=== PATIENT | female | born 1955 | race Caucasian/White ===

== ENCOUNTER → 2023-07-12 09:34 | Outpatient (REF) | payer BC, SELFPAY | LOC: WDC 09:34 | PROVIDERS: ATTENDING PHYSICIAN Obstetrics & Gynecology Gynecology; FAMILY PHYSICIAN Family Medicine | DX: N64.59 Other signs and symptoms in breast (principal); Z85.3 Personal history of malignant neoplasm of breast; Z12.31 Encounter for screening mammogram for malignant neoplasm of breast | CPT/HCPCS: 76642; 77063; 77067 ==

== ENCOUNTER → 2023-07-14 08:04 | Outpatient (REF) | payer BC, SELFPAY ==
--- NOTE | 2023-07-17 09:05 | OID.BR.INTR ---
[facility] Breast Navigator - Initial
- -
Date of Contact: 07/14/23
Met with patient. Patient given written information on navigator services and support services available at [facility]. Will follow up as needed per protocol.
== END ==
LOC: WDC 08:04
PROVIDERS: ATTENDING PHYSICIAN Obstetrics & Gynecology Gynecology; FAMILY PHYSICIAN Family Medicine
DX: N64.59 Other signs and symptoms in breast (principal)
CPT/HCPCS: 88305; 19083; 88341; 88342; 88365

== ENCOUNTER → 2023-07-26 09:01 | Outpatient (REF) | payer BC, SELFPAY ==
[2023-07-26 09:43] LABS: % Basophils 0.9 % (0-2); % Eosinophils 2.2 % (0-6); % Immature Granulocytes 0.2 % (0-0.5); % Lymphocytes 48.7 % (20.5-51.1); Absolute Basophils 0.1 10^3/uL (0-0.2); Absolute Eosinophils 0.1 10^3/uL (0-0.7); Absolute Lymphocytes 2.7 10^3/uL (1.2-3.4); Absolute Monocytes 0.4 10^3/uL (0.1-0.6); Absolute Neutrophils 2.2 10^3/uL (1.4-6.5); Hematocrit 37.4 % (37.0-47.0); Hemoglobin 12.6 g/dL (12.0-16.0); Mean Corp Hgb Conc. 33.7 g/dL (33.0-37.0); Mean Corpuscular Hgb 30.2 pg (27.0-31.0); Mean Corpuscular Volume 89.7 fL (81.0-99.0); Nucleated Red Blood Cells % 0 %; Platelet Count 275 10^3/uL (130-400); Red Blood Cell Count 4.17 10^6/uL (4.20-5.40); White Blood Cell Count 5.5 10^3/uL (4.8-10.8)
[2023-07-26 10:20] LABS: ALT (SGPT) 31 U/L (0-35); AST (SGOT) 34 U/L (14-36); Albumin 4.1 g/dl (3.5-5.0); Alkaline Phosphatase 55 U/L (38-126); Blood Urea Nitrogen 18 mg/dl (7-17); Calcium 9.5 mg/dl (8.4-10.2); Carbon Dioxide 28 mmol/L (22-30); Chloride 106 mmol/L (98-107); Glucose 108 mg/dl (70-99); LDH 194 U/L (120-246); Potassium 4.2 mmol/L (3.5-5.1); Sodium 138 mmol/L (135-145); Total Bilirubin 0.8 mg/dl (0.2-1.3); Total Protein 6.7 g/dl (6.3-8.2); Uric Acid 3.7 mg/dl (2.5-6.2); eGFR > 60.00
[2023-07-27 21:46] LABS: Hepatitis B Surface Antigen Negative (Negative)
[2023-07-27 22:04] LABS: Hepatitis B Surface Antibody Negative
== END ==
LOC: REG 09:01
PROVIDERS: ATTENDING PHYSICIAN Internal Medicine Hematology & Oncology; FAMILY PHYSICIAN Family Medicine
DX: C83.34 Diffuse large B-cell lymphoma, lymph nodes of axilla and upper limb (principal); Z86.000 Personal history of in-situ neoplasm of breast; Z90.12 Acquired absence of left breast and nipple
CPT/HCPCS: 36415; 80053; 83615; 84550; 85025; 86705; 86706; 87340

== ENCOUNTER → 2023-07-27 09:13 | Outpatient (REF) | payer BC, SELFPAY ==
[2023-07-27 09:35] LABS: % Basophils 1.3 % (0-2); % Eosinophils 1.6 % (0-6); % Immature Granulocytes 0.4 % (0-0.5); % Lymphocytes 50.7 % (20.5-51.1); % Monocytes 7.2 % (1.7-9.3); % Neutrophils 38.8 % (42.2-75.2); Absolute Basophils 0.1 10^3/uL (0-0.2); Absolute Eosinophils 0.1 10^3/uL (0-0.7); Absolute Lymphocytes 2.8 10^3/uL (1.2-3.4); Absolute Monocytes 0.4 10^3/uL (0.1-0.6); Absolute Neutrophils 2.2 10^3/uL (1.4-6.5); Hematocrit 34.4 % (37.0-47.0); Hemoglobin 11.5 g/dL (12.0-16.0); Mean Corp Hgb Conc. 33.4 g/dL (33.0-37.0); Mean Corpuscular Hgb 29.7 pg (27.0-31.0); Mean Corpuscular Volume 88.9 fL (81.0-99.0); Mean Platelet Volume 8.8 fL (7.4-10.4); Nucleated Red Blood Cells % 0 %; Platelet Count 249 10^3/uL (130-400); Red Blood Cell Count 3.87 10^6/uL (4.20-5.40); White Blood Cell Count 5.6 10^3/uL (4.8-10.8)
[2023-07-27 09:40] VITALS: BP 145/81; BP_SYST 72
[2023-07-27 09:50] LABS: PT 17.3 Sec (11.4-14.6)
[2023-07-27] MEDS: ATIVAN 0.5 MG IV (11:00)
[2023-07-27] MEDS: NSS (PRESERVATIVE FREE) 0.25 ML IV (11:00)
[2023-07-27] MEDS: FLUSH (NSS) 1 FLUSH IV (11:00)
[2023-07-27 11:57] VITALS: BP 145/73
== END ==
LOC: RADI 09:13
PROVIDERS: ATTENDING PHYSICIAN Internal Medicine Hematology & Oncology; FAMILY PHYSICIAN Family Medicine
DX: C83.34 Diffuse large B-cell lymphoma, lymph nodes of axilla and upper limb (principal); Z01.818 Encounter for other preprocedural examination; Z01.812 Encounter for preprocedural laboratory examination
CPT/HCPCS: 88305; 88311; 88312; 36415; 38222; 77012; 85025; 85610; 88313; 88341; 88342

== ENCOUNTER → 2023-08-02 16:24 | Outpatient (REF) | payer BC, SELFPAY | LOC: MRI 3T 16:24 | PROVIDERS: ATTENDING PHYSICIAN Internal Medicine Hematology & Oncology; FAMILY PHYSICIAN Family Medicine | DX: C83.34 Diffuse large B-cell lymphoma, lymph nodes of axilla and upper limb (principal) | CPT/HCPCS: 77049; A9585 ==

== ENCOUNTER → 2023-08-03 11:23 | Outpatient (REF) | payer BC, SELFPAY | LOC: PET 11:23 | PROVIDERS: ATTENDING PHYSICIAN Internal Medicine Hematology & Oncology | DX: C83.34 Diffuse large B-cell lymphoma, lymph nodes of axilla and upper limb (principal) | CPT/HCPCS: 78815; A9552 ==

== ENCOUNTER → 2023-08-04 08:21 | Outpatient (REF) | payer BC, SELFPAY ==
--- NOTE | 2023-08-04 09:44 | CARDSERVLU ---
Echocardiogram with Lumason completed after protocol screening completed. Allergies verified.
Patent IV site: _Left antecubital 22 G PC____
IV site flushed with 0.9% NaCl pre and post administration.
Diluted bolus method utilized to enhance visualization of ventricular fowler.
Total volume given: __5__ mL
Patient tolerated all procedures well without complications.
Heplock D/C ed at 0920, site clear, no redness, no edema. Pressure held, no bleeding, 2x2 applied and taped. pt offers no complaints.
== END ==
LOC: RCS 08:21
PROVIDERS: ATTENDING PHYSICIAN Internal Medicine Hematology & Oncology; FAMILY PHYSICIAN Family Medicine
DX: C83.34 Diffuse large B-cell lymphoma, lymph nodes of axilla and upper limb (principal); Z86.000 Personal history of in-situ neoplasm of breast; Z90.12 Acquired absence of left breast and nipple
CPT/HCPCS: 93306; Q9950

== ENCOUNTER → 2023-08-14 12:05 | Outpatient (REF) | payer BC, SELFPAY ==
[2023-08-14 12:20] VITALS: BP 145/68; BP_SYST 71
[2023-08-14] MEDS: ANCEF 10 IV (13:13)
[2023-08-14 14:59] VITALS: BP 101/45
== END ==
LOC: RADI 12:05
PROVIDERS: ATTENDING PHYSICIAN Internal Medicine Hematology & Oncology; FAMILY PHYSICIAN Family Medicine
DX: C83.34 Diffuse large B-cell lymphoma, lymph nodes of axilla and upper limb (principal)
CPT/HCPCS: 88172; 88173; 36561; 36598; 38505; 76937; 76942; 77001; 99152; 99153; C1788

== ENCOUNTER 2023-08-22 10:44 | Outpatient (RCR) | payer BC, SELFPAY ==
[2023-08-15] VITALS (11 sets, daily range): BP systolic 86–150; BP diastolic 41–94; BMI 47.7
[2023-08-15 08:17] LABS: % Basophils 0.5 % (0-2); % Eosinophils 1.8 % (0-6); % Immature Granulocytes 0.2 % (0-0.5); % Lymphocytes 48.1 % (20.5-51.1); % Monocytes 8.2 % (1.7-9.3); % Neutrophils 41.2 % (42.2-75.2); Absolute Eosinophils 0.1 10^3/uL (0-0.7); Absolute Lymphocytes 2.7 10^3/uL (1.2-3.4); Absolute Monocytes 0.5 10^3/uL (0.1-0.6); Absolute Neutrophils 2.3 10^3/uL (1.4-6.5); Hematocrit 35.5 % (37.0-47.0); Mean Corp Hgb Conc. 33.8 g/dL (33.0-37.0); Mean Corpuscular Hgb 30.6 pg (27.0-31.0); Mean Corpuscular Volume 90.6 fL (81.0-99.0); Mean Platelet Volume 9.1 fL (7.4-10.4); Platelet Count 259 10^3/uL (130-400); Red Blood Cell Count 3.92 10^6/uL (4.20-5.40); Red Cell Dist. Width 12.8 % (11.5-14.5); White Blood Cell Count 5.6 10^3/uL (4.8-10.8)
[2023-08-15 08:37] LABS: ALT (SGPT) 26 U/L (0-35); AST (SGOT) 31 U/L (14-36); Alkaline Phosphatase 58 U/L (38-126); Blood Urea Nitrogen 23 mg/dl (7-17); Calcium 9.1 mg/dl (8.4-10.2); Carbon Dioxide 25 mmol/L (22-30); Chloride 106 mmol/L (98-107); Estimated Creatinine Clearance 74 ml/min; Glucose 105 mg/dl (70-99); Potassium 4.2 mmol/L (3.5-5.1); Sodium 136 mmol/L (135-145); Total Bilirubin 0.6 mg/dl (0.2-1.3); Total Protein 6.6 g/dl (6.3-8.2); eGFR > 60.00
[2023-08-15] MEDS: BENADRYL 50.5 MG IV (09:26)
[2023-08-15] MEDS: RUXIENCE 200 MG IV (09:57)
[2023-08-15] MEDS: TYLENOL 1000 MG PO (11:32)
[2023-08-15] MEDS: EMEND 150 MG IV (14:05)
[2023-08-15] MEDS: ALOXI 5 MG IV (14:40)
[2023-08-15] MEDS: DECADRON 51 MG IV (14:41)
[2023-08-15] MEDS: ADRIAMYCIN 26.75 MG IV ×2 (15:08)
[2023-08-15] MEDS: ONCOVIN 52 MG IV (15:23)
--- NOTE | 2023-08-15 15:23 | W.PN.UPDATE ---
Update Note
- Progress Note Update
08/15/2023 Patient seen in OID room to introduce self and role here. Patient receiving chemotherapy with [id number] for B cell lymphoma. Cycle #1 today. Patient reports feeling well at today's visit. Denies any questions. Alexason Villalta completed
education session with patient. Encouraged light exercise or physical movement daily while undergoing chemotherapy to support overall well being and possibly decrease side effects. Contact information provided. Patient to call with any questions
or concerns. Educated to call [facility] for any oncologic emergencies ie intractable nausea, pain, fever, etc. She thanked me for my time and reports feeling well prepared for today's treatment. Will continue to follow.
[2023-08-15] MEDS: CYCLOPHOSPHAMIDE 257.990000000000009 MG IV (15:41)
[2023-08-16 15:22] VITALS: BP 153/76
[2023-08-16] MEDS: NYVEPRIA 6 MG SC (15:28)
[2023-08-22 10:55] LABS: % Basophils 0.4 % (0-2); % Eosinophils 5.9 % (0-6); % Monocytes 7.1 % (1.7-9.3); % Neutrophils 1.6 % (42.2-75.2); Absolute Eosinophils 0.2 10^3/uL (0-0.7); Absolute Lymphocytes 2.2 10^3/uL (1.2-3.4); Absolute Monocytes 0.2 10^3/uL (0.1-0.6); Hematocrit 34.3 % (37.0-47.0); Hemoglobin 11.7 g/dL (12.0-16.0); Mean Corp Hgb Conc. 34.1 g/dL (33.0-37.0); Mean Corpuscular Hgb 30.3 pg (27.0-31.0); Mean Corpuscular Volume 88.9 fL (81.0-99.0); Mean Platelet Volume 9.1 fL (7.4-10.4); Platelet Count 160 10^3/uL (130-400); Red Blood Cell Count 3.86 10^6/uL (4.20-5.40); Red Cell Dist. Width 12.4 % (11.5-14.5); White Blood Cell Count 2.5 10^3/uL (4.8-10.8)
[2023-08-22 11:00] VITALS: BP 140/65
[2023-08-22 11:05] VITALS: BP 106/61
[2023-08-22 11:27] LABS: ALT (SGPT) 17 U/L (0-35); AST (SGOT) 17 U/L (14-36); Albumin 3.8 g/dl (3.5-5.0); Alkaline Phosphatase 70 U/L (38-126); Blood Urea Nitrogen 15 mg/dl (7-17); Calcium 8.9 mg/dl (8.4-10.2); Carbon Dioxide 24 mmol/L (22-30); Chloride 107 mmol/L (98-107); Estimated Creatinine Clearance 83 ml/min; Glucose 117 mg/dl (70-99); Sodium 135 mmol/L (135-145); Total Bilirubin 0.7 mg/dl (0.2-1.3); Total Protein 6.3 g/dl (6.3-8.2); eGFR > 60.00
--- NOTE | 2023-08-22 12:12 | PTCARENOTE ---
1100-Pt here today for routine labs. Pt c/o significant sinus pain and pressure. ANC=0 Pt is afebrile 98.3. Pt has been unable to sleep well because of sinus pressure. Bp sitting 140/65 HR 96 standing BP 106/61 101 . Pt has been eating and
drinking. Edna Correa REIMBURSEMENT REP notified. Pt will get IV fluids today script called in for Augmentin, pt to use Flonase and saline nasal spray for comfort. Also script for Diflucan as patient is prone to yeast infections.
[2023-08-22] MEDS: NSS 1000 IV (13:32)
[2023-08-22 13:37] VITALS: BP 129/50
[2023-08-22 15:10] VITALS: BP 129/81
[2023-08-22 15:12] VITALS: BP 123/66
== END 2023-08-23 09:40 | disposition home or self-care (01) ==
LOC: OID 10:44
PROVIDERS: ATTENDING PHYSICIAN Internal Medicine Hematology & Oncology; PRIMARYCARE PHYSICIAN Family Medicine
DX: Z51.11 Encounter for antineoplastic chemotherapy (principal); C83.34 Diffuse large B-cell lymphoma, lymph nodes of axilla and upper limb
CPT/HCPCS: 36415; 80053; 84550; 85025; 96360; 96361; 96367; 96372; 96411; 96413; 96415; 96417; J1453; J2469; J9000; J9070; Q5119; Q5122

== ENCOUNTER 2023-08-23 15:27 | Inpatient (IN) | payer BC, SELFPAY ==
[2023-08-23 12:05] VITALS: BP 107/74
--- NOTE | 2023-08-23 12:39 | ED.GENMED ---
History of Present Illness
<Natali Koch PA-C - Last Filed: 08/23/23 15:01>
General
Chief Complaint: Fever
Source: patient
Exam Limitations: none
Time Seen by Provider: 08/23/23 12:39
Nursing documentation reviewed up to this point in time: agreed with
Travel History
Have you had any contact with someone who has COVID-19?: No
Do you have any symptoms of coronavirus? Fever > 100 degrees, chills, cough, shortness of breath, sore throat, loss of taste or smell, muscle aches, or headache?: No
History of Present Illness
History of Present Illness:
68-year-old female with a past medical history of breast cancer/thyroid cancer, lymphoma, diabetes, HTN, presenting emergency department today with shaking chills x 1 day. Patient states that for the past few days, she has had facial pain,
headache, sinus congestion. She saw her primary doctor who started her on amoxicillin. She is on day 2 of amoxicillin, third dose. Patient states that today, when she woke up, she started to get shaking chills and sweats. Patient states that her
facial congestion pain has resolved. Patient [place] any coughing, shortness of breath, chest pain, abdominal pain, nausea, vomiting. Patient now has bilateral submandibular swelling, but no pain associated with this. Patient currently undergoing
chemotherapy for stage I lymphoma, she did have a chemo treatment this week. She states that she had radiation to her neck in the past for thyroid cancer, denies any radiation treatment to her face and head.
Past History
<Natali Koch PA-C - Last Filed: 08/23/23 15:01>
Past History
ED Past Medical History: Negative HTN, IDDM or NIDDM
Social History
Personal:
Living: with family
Review of Systems
<Natali Koch PA-C - Last Filed: 08/23/23 15:01>
Review of Systems
All Other Systems: ROS reviewed and negative except as documented in HPI and ROS
Phy Exam
<Natali Koch PA-C - Last Filed: 08/23/23 15:01>
Physical Exam
Physical Exam:
Vitals: Patient is tachycardic.
General: Patient appears diaphoretic, uncomfortable, but nontoxic-appearing.
Skin: Diaphoresis noted. No rashes or lesions.
Head: Normocephalic, atraumatic. Palpable submandibular swelling, no palpable lymphadenopathy.
Neck: No cervical lymphadenopathy.
Mouth: Dentition intact, no dental tenderness to palpation. No gingival fluctuance. Small scattered white patches on the buccal mucosa.
Cardiac: Patient is tachycardic, otherwise regular rhythm, no murmurs, rubs, gallop.
Respiratory: Normal respiratory effort, no wheezes, rales, rhonchi.
Abdomen: No abdominal tenderness to palpation.
Neuro: AAOx3. CN II-XII intact.
Course
<Natali Koch PA-C - Last Filed: 08/23/23 15:01>
Orders/Labs/Results
Orders:
Orders
08/23/23 12:50
0.9% Sodium Chloride 1000 ml [Nss] 1,000 ml IV BOLUS
Acetaminophen [Tylenol] 650 mg PO NOW STA
08/23/23 12:57
Complete Blood Count/With Diff Urgent
Comprehensive Metabolic Panel Urgent
Manual Differential Urgent
08/23/23 13:30
Add On- LAB Urgent
Tests Added?: lactic acid
08/23/23 13:35
Lactic Acid Routine
Blood Culture Q30M
GELY Source: Blood/Venous
Specimen Description:
08/23/23 13:43
CT Neck With Iv Contrast Urgent
Comment:
Reason For Exam: submandibular swelling, recent lymph node biopsy
Cefepime HCl [Maxipime] 2,000 mg IV NOW STA
08/23/23 13:51
Blood Culture Q30M
GELY Source: Blood/Venous
Specimen Description:
Abnormal Lab Results
08/23/23
12:57
WBC 2.0 L* 10^3/uL
(4.8-10.8)
RBC 3.69 L 10^6/uL
(4.20-5.40)
Hgb 11.0 L g/dL
(12.0-16.0)
Hct 31.9 L %
(37.0-47.0)
Plt Count 128 L 10^3/uL
(130-400)
Abs Neuts (Manual) 0.8 L* 10^3/uL
(1.4-6.5)
Segmented Neutrophils 26 L %
(42-75)
Band Neutrophils 14 H %
(0-3)
Sodium 134 L mmol/L
(135-145)
Glucose 121 H mg/dl
(70-99)
Total Protein 6.1 L g/dl
(6.3-8.2)
08/23/23 12:57
08/23/23 12:57
Vital Signs
Initial and Last Documented VS:
Initial Vital Signs
Temp Pulse Resp BP Pulse Ox
100.4 F H 138 16 107/74 94
08/23/23 12:05 08/23/23 12:05 08/23/23 12:05 08/23/23 12:05 08/23/23 12:05
Last Documented Vital Signs
Temp Pulse Resp BP Pulse Ox
100.4 F H 109 25 128/67 90
08/23/23 12:05 08/23/23 14:00 08/23/23 14:00 08/23/23 14:00 08/23/23 14:00
<Yandel Mccartney, DO - Last Filed: 08/23/23 14:20>
Orders/Labs/Results
Orders:
Orders
08/23/23 12:50
0.9% Sodium Chloride 1000 ml [Nss] 1,000 ml IV BOLUS
Acetaminophen [Tylenol] 650 mg PO NOW STA
08/23/23 12:57
Complete Blood Count/With Diff Urgent
Comprehensive Metabolic Panel Urgent
Manual Differential Urgent
08/23/23 13:30
Add On- LAB Urgent
Tests Added?: lactic acid
08/23/23 13:35
Lactic Acid Routine
Blood Culture Q30M
GELY Source: Blood/Venous
Specimen Description:
08/23/23 13:43
CT Neck With Iv Contrast Urgent
Comment:
Reason For Exam: submandibular swelling, recent lymph node biopsy
Cefepime HCl [Maxipime] 2,000 mg IV NOW STA
08/23/23 13:51
Blood Culture Q30M
GELY Source: Blood/Venous
Specimen Description:
Abnormal Lab Results
08/23/23
12:57
WBC 2.0 L* 10^3/uL
(4.8-10.8)
RBC 3.69 L 10^6/uL
(4.20-5.40)
Hgb 11.0 L g/dL
(12.0-16.0)
Hct 31.9 L %
(37.0-47.0)
Plt Count 128 L 10^3/uL
(130-400)
Abs Neuts (Manual) 0.8 L* 10^3/uL
(1.4-6.5)
Segmented Neutrophils 26 L %
(42-75)
Band Neutrophils 14 H %
(0-3)
Sodium 134 L mmol/L
(135-145)
Glucose 121 H mg/dl
(70-99)
Total Protein 6.1 L g/dl
(6.3-8.2)
08/23/23 12:57
08/23/23 12:57
Vital Signs
Initial and Last Documented VS:
Initial Vital Signs
Temp Pulse Resp BP Pulse Ox
100.4 F H 138 16 107/74 94
08/23/23 12:05 08/23/23 12:05 08/23/23 12:05 08/23/23 12:05 08/23/23 12:05
Last Documented Vital Signs
Temp Pulse Resp BP Pulse Ox
100.4 F H 109 25 128/67 90
08/23/23 12:05 08/23/23 14:00 08/23/23 14:00 08/23/23 14:00 08/23/23 14:00
<Natali Koch PA-C - Last Filed: 08/23/23 15:01>
MDM/Problems Addressed
Differential Diagnosis Includes:
ddx include sinusitis, parotidis, dental infection, bacteremia
MDM/Problems Addressed:
Fever, chills
Chronic conditions affecting care: DM, HTN and Cancer
Acute Exacerbation and/or Progression of Chronic Illness: DM, HTN and Cancer
<CASSANDRA Lopes Last Filed: 08/23/23 15:01>
*Pulse Oximetry
Patient hypoxic: no
*Critical Care Note
Total Time (30-74mins, 75-104mins- exclusive of procedures): Not Applicable
Data Reviewed
Review of Other/Old Records Reveals: Records (Reviewed physician office history and physical from 08/16/2023 from [facility]) and Discharge Summary (Discharge summaries in [facility] to review )
Source: patient and records
<CASSANDRA Lopes Last Filed: 08/23/23 15:01>
Patient Management
Escalation/DeEscalation of care consider admission/obs:
68-year-old female with a past medical history of breast cancer/thyroid cancer, lymphoma, diabetes, HTN, presenting emergency department today with shaking chills x 1 day. Patient states that for the past few days, she has had facial pain,
headache, sinus congestion. Her pain and pressure symptoms are since resolved, however now she has facial swelling and fever and chills. Currently undergoing chemo for lymphoma. Here in the emergency department, patient had a fever and was found
to be new neutropenic. Patient did have a recent lymph node biopsy, so CT of the neck was obtained to rule out an abscess as a possible source. Patient is on day 2 of amoxicillin for sinusitis. Her CT scanning of the neck did not show any fluid
collection. Patient was started on IV cefepime and referred to hospitalist for admission. Hospitalist accepted patient, patient aware and in agreement with plan.
ED Attending Note
<Natali Koch PA-C - Last Filed: 08/23/23 15:01>
-
Portions of this chart may have been created with voice recognition software.� Occasional wrong word or��sound alike� substitutions may have occurred due to the inherent limitations of voice recognition software.
<Yandel Mccartney DO - Last Filed: 08/23/23 14:20>
ED Attending Note
Patient seen and examined by attending physician: Yes
I performed the substantive portion of visit, reviewed & personally made and approve the management plan that is documented in note by myself or JUDIE.: Yes
ED Attending Note:
I have seen and evaluated the patient with a [id number] encounter. I have spoken to the advance practicer provider and involved in the medical history, the physical exam, medical decision making.
Evaluation and management service: agree unless noted differently below.
Results interpretation: agree unless noted differently below.
Focused HPI: 68-year-old female presenting with fevers and chills. She is noticing swelling around her neck. Patient is currently on antibiotics for sinusitis. Patient states she was recently diagnosed with lymphoma and just started her first
chemotherapy. She was told yesterday that she 'has no white blood cells'. Patient had a biopsy done in her neck where she is now noticing redness and swelling
Physical exam: Sitting bed comfortably. Enlarged submandibular lymphnodes with surrounding cellulitis. No evidence of [place] angina. Lungs clear
Medical Decision Making: Patient found to be neutropenic. Given the neutropenic fever with concern for lymphadenitis, will start antibiotics and admit
Discharge Plan
Departure
Patient Disposition: Admit
Date of Disposition: 08/23/23
Time of Disposition: 13:47
Admit to: Med/Surg
Presentation/result/management discussed w/ accepting MD/DO: Hospitalist
Condition: Fair
Discharge Problem:
Neutropenic fever
Prescriptions:
No Action
fluoxetine 40 mg Capsule
40 mg PO DAILY
metformin 500 mg Tablet
500 mg PO BID
pantoprazole 40 mg Tablet,Delayed Release (Dr/Ec)
40 mg PO DAILY
lisinopril 10 mg Tablet
10 mg PO DAILY
levothyroxine [Synthroid] 150 mcg Tablet
125 mcg PO DAILY
metoprolol succinate 25 mg Tablet Extended Release 24 Hr
25 mg PO DAILY
loratadine 10 mg Tablet
10 mg PO DAILY
rosuvastatin 10 mg Tablet
20 mg PO DAILY
fenofibrate 160 mg Tablet
160 mg PO DAILY
calcium carbonate-vitamin D3 [Calcium 500 + D] 500 mg-10 mcg (400 unit) Tablet
1 tab PO DAILY
ondansetron HCl [Zofran] 8 mg Tablet
8 mg PO Q8HPRN PRN (Reason: nausea)
prochlorperazine maleate [Compazine] 10 mg Tablet
10 mg PO Q6H PRN (Reason: nausea)
loperamide 2 mg Tablet
2 mg PO Q4HPRN PRN (Reason: DIARRHEA)
ibuprofen [Advil] 200 mg Tablet
400 mg PO Q6HPRN PRN (Reason: MILD PAIN)
allopurinol 300 mg Tablet
300 mg PO DAILY
Referrals:
Raúl Del Castillo DO [Family Provider] -
Interventions
Interventions:
*Risk Screen - Suicide Last Done: 08/23/23 12:05
*General Assessment Last Done: 08/23/23 12:05
*Neglect/Abuse Screening Last Done: 08/23/23 12:05
ED- Fall Risk Assessment Last Done: 08/23/23 12:42
*ED COVID-19 Vaccine History Last Done: 08/23/23 12:44
ED- Neurological Assessment Last Done: 08/23/23 12:42
ED-Skin Assessment Last Done: 08/23/23 12:42
Discharge Date and Time
Print Language: AUSTRIAN
[2023-08-23] MEDS: NSS 1000 IV (12:57)
[2023-08-23] MEDS: TYLENOL 650 MG PO ×2 (12:59→20:06)
[2023-08-23 13:07] VITALS: BP 118/75
[2023-08-23 13:16] LABS: Hematocrit 31.9 % (37.0-47.0); Mean Corp Hgb Conc. 34.5 g/dL (33.0-37.0); Mean Corpuscular Hgb 29.8 pg (27.0-31.0); Mean Corpuscular Volume 86.4 fL (81.0-99.0); Mean Platelet Volume 9.6 fL (7.4-10.4); Platelet Count 128 10^3/uL (130-400); Red Blood Cell Count 3.69 10^6/uL (4.20-5.40); Red Cell Dist. Width 12.5 % (11.5-14.5)
[2023-08-23 13:32] LABS: ALT (SGPT) 18 U/L (0-35); AST (SGOT) 23 U/L (14-36); Albumin 3.5 g/dl (3.5-5.0); Alkaline Phosphatase 69 U/L (38-126); Blood Urea Nitrogen 12 mg/dl (7-17); Calcium 9.1 mg/dl (8.4-10.2); Carbon Dioxide 23 mmol/L (22-30); Chloride 106 mmol/L (98-107); Glucose 121 mg/dl (70-99); Potassium 3.7 mmol/L (3.5-5.1); Sodium 134 mmol/L (135-145); Total Bilirubin 0.8 mg/dl (0.2-1.3); Total Protein 6.1 g/dl (6.3-8.2); eGFR > 60.00
[2023-08-23 13:48] LABS: Atypical Lymphocytes 3 %; Band Neutrophils 14 % (0-3); Eosinophils 2 % (0-6); Lymphocytes 36 % (20-51); Metamyelocytes 8 % (-); Monocytes 9 % (2-9); Myelocytes 2 % (-); Platelets Checked Yes; Segmented Neutrophils 26 % (42-75)
[2023-08-23 13:49] LABS: Normal RBC Morphology Yes; Total Cells Counted 100
[2023-08-23] MEDS: MAXIPIME 2000 MG IV ×2 (13:50→21:33)
[2023-08-23 13:52] LABS: Absolute Neutrophils -Man Diff 0.8 10^3/uL (1.4-6.5)
[2023-08-23 13:57] LABS: Lactic Acid 1.2 mmol/L (0.7-2.0)
[2023-08-23 14:00] VITALS: BP 128/67
--- NOTE | 2023-08-23 14:35 | HPS.HSE ---
Family Physician
-
Family Physician: Raúl Del Castillo, DO
Chief Complaint
-
Fever
History of Present Illness
Patient is a 68-year-old female past medical history of hypertension, hyperlipidemia, diabetes and recently diagnosed lymphoma who presents with shaking chills. Patient reports she just started treatment for lymphoma last week, with first dose of
chemotherapy on August 15. She notes the following day she did receive a dose of Neulasta. She reports she had blood work taken and received some IV fluids in the infusion room earlier this week. She complains of sinus pressure and did get started
on a course of amoxicillin, and notes her facial pain has improved. However, this morning she developed significant shaking chills, and reports a temperature of 100 �F at home. She was in contact with her oncologist who referred her to the
emergency department for evaluation.
Medical History
Past Medical History
Past Medical History: Reports Other
Additional Past Medical History:
Diabetes Mellitus, Type II
Essential Hypertension
Hyperlipidemia
Depression
Diffuse Large B-Cell Lymphoma
Thyroid CA s/p Thyroidectomy
Breast Cancer s/p Left Mastectomy
Past Surgical History: Reports Other
Additional Past Surgical History:
Thyroidectomy
Left Mastectomy
Social History
Tobacco: Non-smoker
Alcohol: Occasional (Patient reports none for the last month)
Family History
Family History: Not pertinent
Allergies / Home Medications
Allergies reflects when Allergies were last updated in [employer].
Home Medications with original date entered in [employer]
Allergy/Medication List:
Allergies
Allergy/AdvReac Type Severity Reaction Status Date / Time
NKA - No Known Allergies Allergy Unknown Uncoded 08/23/23 12:40
Home Medications
calcium carbonate 500 mg-vitamin D3 10 mcg (400 unit) tablet (Calcium 500 + D) 1 tab PO DAILY 12/06/22
fenofibrate 160 mg tablet 160 mg PO DAILY 12/06/22
fluoxetine 40 mg capsule 40 mg PO DAILY 12/06/22
levothyroxine 150 mcg tablet (Synthroid) 125 mcg PO DAILY 12/06/22
lisinopril 10 mg tablet 10 mg PO DAILY 12/06/22
loratadine 10 mg tablet 10 mg PO DAILY 12/06/22
metformin 500 mg tablet 500 mg PO BID 12/06/22
metoprolol succinate 25 mg tablet,extended release 24 hr 25 mg PO DAILY 12/06/22
pantoprazole 40 mg tablet,delayed release 40 mg PO DAILY 12/06/22
rosuvastatin 10 mg tablet 20 mg PO DAILY 12/06/22
ondansetron HCl 8 mg tablet 8 mg PO Q8HPRN PRN nausea 08/15/23
prochlorperazine maleate 10 mg tablet (Compazine) 10 mg PO Q6H PRN nausea 08/15/23
allopurinol 300 mg tablet 300 mg PO DAILY 08/23/23
ibuprofen 200 mg tablet (Advil) 400 mg PO Q6HPRN PRN MILD PAIN 08/23/23
loperamide 2 mg tablet 2 mg PO Q4HPRN PRN DIARRHEA 08/23/23
Review of Systems
-
A 12 point ROS was completed and negative except as noted: Yes
Constitutional: Reports Chills
Respiratory: Denies Cough or Trouble Breathing
Cardiac: Denies Chest Pain or Palpitations
Abdomen/GI: Denies Abdominal Pain, Nausea, Vomiting, Diarrhea or Constipated
: Denies Dysuria, Frequency or Flank Pain
Skin: Denies Rash
Physical Exam
Vital Signs
Vital Signs
Temp Pulse Resp BP Pulse Ox
100.4 F H 109 25 128/67 90
08/23/23 12:05 08/23/23 14:00 08/23/23 14:00 08/23/23 14:00 08/23/23 14:00
Physical Exam
General: Comfortable and Conversant
HEENT: Anicteric, Moist mucous membranes and Thrush
Respiratory: Clear and Non Labored Respirations
Cardiac: S1/S2 and Regular Rhythm; No Tachycardia or Murmur
GI: Soft and Non Tender
Rectal: Deferred by Provider
Musculoskeletal: No Clubbing, No Cyanosis and No Edema
Skin: Warm and Dry; No Rash
Neuro: Awake, Alert, Oriented and Nonfocal/grossly intact
Psych: Calm
Laboratory Results
-
08/23/23 12:57
08/23/23 12:57
Laboratory Results
Lactic Acid 1.2 mmol/L (0.7-2.0) 08/23/23 13:35
Total Bilirubin 0.8 mg/dl (0.2-1.3) 08/23/23 12:57
AST 23 U/L (14-36) 08/23/23 12:57
ALT 18 U/L (0-35) 08/23/23 12:57
Alkaline Phosphatase 69 U/L (38-126) 08/23/23 12:57
Data Reviewed
-
Lab Data: Labs Reviewed by me
Old Records: Reviewed
Impression/Plan
-
Sepsis secondary to likely Neutropenic Fever
-Consult Oncology and Infectious Disease
-Continue cefepime
-Await blood cultures
-Check urinalysis, COVID and influenza
Thrush
-Start Nystatin
Diabetes Mellitus, Type II
-Continue Metformin
-Monitor sugars and continue coverage insulin
Essential Hypertension
-Continue Lisinopril and Metoprolol
Hyperlipidemia
-Continue fenofibrate and rosuvastatin
Depression
-Continue fluoxetine
Diffuse Large B-Cell Lymphoma
-Last Chemotherapy August 15
Hx Thyroid CA s/p Thyroidectomy
-Continue Synthroid
Hx Breast Cancer s/p Left Mastectomy
DVT proph: Lovenox
Code Status: Full Code
[2023-08-23 16:08] LABS: COVID-19 Antigen Negative (Negative)
[2023-08-23 16:11] VITALS: BMI 47.4
[2023-08-23 16:21] LABS: Glucose - Point of Care 111 mg/dl (70-99)
--- NOTE | 2023-08-23 17:03 | W.PN.UPDATE ---
Update Note
Progress Note Update
This serves as an addendum to the history and physical done by Edwige Adam on August 23, 2023.
Pt seen and examined independently--agree with plan as set forth
GENERAL: well developed, well nourished, female in no apparent distress
HEENT:NC/AT-red, swollen area on right jaw and upper neck--no need for O2--thrush and small oral ulcer on inner right cheek by upper molar
HEART: regular rate and rhythm, +S1, +S2
LUNGS : clear to auscultation bilaterally
ABDOM: soft, nontender, nondistended, + bowel sounds
EXT: no cyanosis, clubbing, or edema
NEUROLOGIC: grossly intact
Sepsis secondary to likely Neutropenic Fever--doubt true infection BUT will barraza culture--consult ID and heme/onc--cont cefepime and add vanco--CT neck without abscess--check panorex--Covid neg--check UA
Thrush--Start Nystatin
Diabetes Mellitus, Type II--Continue Metformin--Monitor sugars and continue coverage insulin
Essential Hypertension--Continue Lisinopril and Metoprolol
Hyperlipidemia--Continue fenofibrate and rosuvastatin
Depression--Continue fluoxetine
Diffuse Large B-Cell Lymphoma with pancytopenia--Last Chemotherapy August 15 (first round, also got neulasta day after)
Hx Thyroid CA s/p Thyroidectomy--Continue Synthroid
Hx Breast Cancer s/p Left Mastectomy
DVT proph: Lovenox
Code Status: Full Code
--- NOTE | 2023-08-23 18:01 | PHA.VAN.IN ---
Assessment
- Assessment
Renal Function: Appears similar to baseline
Maximum Temperature: 100.4 F oral 08/23/23 @ 1205
Concomitant Antimicrobials: cefepime
Plan
- Plan
Initial / Loading Dose: vanc 2000mg pending administration
Maintenance Regimen: dosing by level
Monitoring: random level 08/23 0600
Pharmacokinetics Vancomycin I
- -
Patient Age: 68
Patient Sex: Female
Vancomycin Day #: 1
Indication: Neutropenic Fever
Requesting Provider: Dr. Moore
Pertinent Antimicrobial Allergies:
no pertinent antimicrobial allergies
Height / Weight:
Height 5 ft 2 in
Actual Weight 117.344 kg
Pertinent Past Medical History: BMI ~47, diffuse large B-cell lymphoma
- Vital Signs / Lab Results
Temp Pulse Resp BP Pulse Ox
98.7 F 105 26 128/67 94
08/23/23 13:35 08/23/23 14:15 08/23/23 14:15 08/23/23 14:00 08/23/23 16:15
Lab Results - Hematology
08/23/23
12:57
WBC 2.0 L*
Band Neutrophils 14 H
Lab Results - Chemistry
08/23/23
12:57
BUN 12
Creatinine 0.7
Albumin 3.5
08/23/23
13:35
Lactic Acid 1.2
Microbiology Results
08/23/23 15:19 Influenza Types A & B (DL) - Final
Nasal Swab Negative for Influenza A & B, NAAT
Negative results must be combined with clinical observations
and patient history.
Nucleic Acid Amplification test (NAAT)performed on the
[employer] platform.
[2023-08-23] MEDS: LOVENOX 40 MG SC (18:17)
[2023-08-23] MEDS: MYCOSTATIN ORAL SUSPENSION 5 ML PO ×2 (18:17→21:33)
[2023-08-23] MEDS: VANCOCIN 540 MG IV (18:17)
[2023-08-23] MEDS: GLUCOPHAGE 500 MG PO (20:07)
[2023-08-23 20:57] LABS: Urine Albumin Trace (Neg - Trace); Urine Bilirubin Negative (Negative); Urine Character Clear (Clear); Urine Color Yellow; Urine Glucose Negative (Negative); Urine Ketone Trace (Negative); Urine Leukocyte Negative (Negative); Urine Nitrite Negative (Negative); Urine Occult Blood Negative (Negative); Urine Urobilinogen Negative (Neg - 1+)
[2023-08-23 21:12] LABS: Glucose - Point of Care 111 mg/dl (70-99)
[2023-08-23] MEDS: STERILE WATER FOR INJECTION 10 ML IV (21:33)
[2023-08-23] MEDS: ROXICODONE 5 MG PO (22:08)
[2023-08-23] MEDS: COMPAZINE 5 MG IV (22:15)
[2023-08-23 22:48] VITALS: BP 138/90
[2023-08-24 04:53] LABS: % Basophils 0.2 % (0-2); % Immature Granulocytes 9.1 % (0-0.5); % Lymphocytes 32.6 % (20.5-51.1); % Monocytes 9.3 % (1.7-9.3); % Neutrophils 47.8 % (42.2-75.2); Absolute Eosinophils 0.1 10^3/uL (0-0.7); Absolute Immature Granulocytes 0.5 10^3/uL (0-0.05); Absolute Lymphocytes 1.7 10^3/uL (1.2-3.4); Absolute Monocytes 0.5 10^3/uL (0.1-0.6); Absolute Neutrophils 2.5 10^3/uL (1.4-6.5); Hematocrit 30.4 % (37.0-47.0); Mean Corp Hgb Conc. 32.9 g/dL (33.0-37.0); Mean Corpuscular Hgb 29.1 pg (27.0-31.0); Mean Corpuscular Volume 88.4 fL (81.0-99.0); Mean Platelet Volume 10.2 fL (7.4-10.4); Nucleated Red Blood Cells % 0.8 %; Platelet Count 120 10^3/uL (130-400); Red Blood Cell Count 3.44 10^6/uL (4.20-5.40); Red Cell Dist. Width 12.9 % (11.5-14.5); White Blood Cell Count 5.3 10^3/uL (4.8-10.8)
[2023-08-24 05:26] LABS: Blood Urea Nitrogen 12 mg/dl (7-17); Calcium 8.9 mg/dl (8.4-10.2); Carbon Dioxide 22 mmol/L (22-30); Chloride 103 mmol/L (98-107); Estimated Creatinine Clearance 109 ml/min; Glucose 106 mg/dl (70-99); Potassium 3.6 mmol/L (3.5-5.1); Sodium 135 mmol/L (135-145); eGFR > 60.00
[2023-08-24] MEDS: STERILE WATER FOR INJECTION 10 ML IV ×3 (05:29→23:00)
[2023-08-24] MEDS: MAXIPIME 2000 MG IV ×3 (05:29→23:00)
[2023-08-24] MEDS: SYNTHROID 125 MCG PO (05:29)
[2023-08-24 05:31] LABS: Vancomycin Random 10.7 ug/ml
[2023-08-24 05:32] VITALS: BMI 47.4
[2023-08-24] MEDS: COMPAZINE 5 MG IV (06:36)
[2023-08-24 07:05] VITALS: BP 125/85
[2023-08-24 07:35] LABS: Glucose - Point of Care 102 mg/dl (70-99)
--- NOTE | 2023-08-24 08:20 | PHA.VAN.FU ---
Vancomycin Assessment / Plan
- Assessment
Renal Function: Stable
WBC's are: WNL
Neutropenia: ANC = 800 on 08/22
Concomitant Antimicrobials: cefepime
- Assessment - Therapeutic Drug Monitoring
Random Level: 10.7 - drawn ~10H after 2g loading dose
- Dosing Plan
Adjust Regimen to: Vanc 1250mg Q12H - first dose now then 1800
New Regimen Predicts: AUC (478), Peak (31.2), Trough (11.5)
- Follow Up
Pharmacy will continue to follow.
Vancomycin Follow UP
- -
Patient Age: 68
Patient Sex: Female
Vancomycin Day #: 2
Indication: Neutropenic Fever
Requesting Provider: Dr. Moore
Pertinent Antimicrobial Allergies:
no pertinent antimicrobial allergies
Height / Weight:
Height 5 ft 2 in
Actual Weight 117.509 kg
Pertinent Past Medical History: BMI ~47, diffuse large B-cell lymphoma
- Vital Signs / Lab Results
Temp Pulse Resp BP Pulse Ox
98.3 F 110 20 138/90 97
08/23/23 22:48 08/23/23 22:48 08/23/23 22:48 08/23/23 22:48 08/23/23 22:48
Lab Results - Hematology
08/23/23 08/24/23
12:57 04:36
WBC 2.0 L* 5.3
Band Neutrophils 14 H
Lab Results - Chemistry
08/23/23 08/24/23
12:57 04:35
BUN 12 12
Creatinine 0.7 0.6
Estimated Creat Clear 109
Albumin 3.5
08/23/23
13:35
Lactic Acid 1.2
Lab Results - Urine
08/23/23
20:50
Urine Nitrite (Reflex) Negative
Leukocyte Esterase Rfl Negative
Microbiology Results
08/23/23 15:19 Influenza Types A & B (DL) - Final
Nasal Swab Negative for Influenza A & B, NAAT
Negative results must be combined with clinical observations
and patient history.
Nucleic Acid Amplification test (NAAT)performed on the
[employer] platform.
Therapeutic Drug Monitoring
Random Vancomycin 10.7 ug/ml 08/24/23 04:35
[2023-08-24 08:44] LABS: Glycohemoglobin (HgbA1c) 6.3 % (4.0-5.6)
--- NOTE | 2023-08-24 08:56 | CON.ONC ---
Addendum entered and electronically signed by Scott Mason DO 08/24/23 14:51:
Patient examined independently and chart reviewed. Agree with the impression and plan as outlined by MEDICAL [employer] [employer] [facility]. Appearing nontoxic with improving WBC count status post R-CHOP for iffuse large B-cell lymphoma. Patient received growth factor support
posttreatment. Continue to monitor CBC. If afebrile with negative cultures may be discharged at any time with ID recommendations. Will follow-up in the office.
Original Note:
Impression
Impression
Neutropenic fever
Diffuse large B-cell lymphoma s/p CHOP,Rituxan 08/14, GCS-F support 08/15
Sinus/facial pain/congestion
Plan
Plan
08/22 WBC 5.3, ANC 800 (improved), Hgb 10, PLT 120
Received GCS-F support 08/15
Continue neutropenic precautions
Transfuse as needed to maintain Hgb >7, PLT >20
CBC with diff daily
Infectious workup in progress/ID consult
Supportive care/emotional support
Suggested telehealth visit with [facility] tomorrow if possible
We will follow
Patient History
History of Present Illness
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 She has additional history of thyroid cancer s/p radioactive
iodine x3 and XRT to bilateral neck. She is known to Dr. Navarrete. She recently had her first treatment of CHOP therapy with Rituxan on 08/15/23. She is treated at [facility]. She presented for IVF on 08/21 for reports of fatigue/dehydration. Nursing
reported to us that patient complained of severe sinus/facial pain and nasal congestion. Her CBC showed ANC 0.Augmentin was sent on 08/21 (as well as Diflucan per patient request due to side effects of yeast infection). Supportive measures were
recommended for sinusitis, however, she called again yesterday, 08/22, with reports of shaking chills and was instructed to proceed to the ER due to concerns of neutropenic fever. She states she is feeling improved with antibiotics. Remains fatigued.
Past-Medical/Surgical History
Diffuse large B-cell lymphoma of LUE
DCIS s/p left mastectomy with reconstruction
Thyroid cancer s/p radioactive iodine x3/XRT to neck
Hypertension
Hyperlipidemia
DM2 on Metformin
Depression
Nonsmoker
Patient Medication
�Medication �Instructions �Recorded �Confirmed �Last Taken �Type
calcium carbonate 500 mg-vitamin 1 tab PO DAILY 12/06/22 08/23/23 08/22/23 History
D3 10 mcg (400 unit) tablet
(Calcium 500 + D)
fenofibrate 160 mg tablet 160 mg PO DAILY 12/06/22 08/23/23 08/21/23 History
fluoxetine 40 mg capsule 40 mg PO DAILY 12/06/22 08/23/23 08/22/23 History
levothyroxine 150 mcg tablet 125 mcg PO DAILY 12/06/22 08/23/23 08/22/23 History
(Synthroid)
lisinopril 10 mg tablet 10 mg PO DAILY 12/06/22 08/23/23 08/22/23 History
loratadine 10 mg tablet 10 mg PO DAILY 12/06/22 08/23/23 08/22/23 History
metformin 500 mg tablet 500 mg PO BID 12/06/22 08/23/23 08/21/23 History
metoprolol succinate 25 mg 25 mg PO DAILY 12/06/22 08/23/23 08/22/23 History
tablet,extended release 24 hr
pantoprazole 40 mg tablet,delayed 40 mg PO DAILY 12/06/22 08/23/23 08/22/23 History
release
rosuvastatin 10 mg tablet 20 mg PO DAILY 12/06/22 08/23/23 08/22/23 History
ondansetron HCl 8 mg tablet 8 mg PO Q8HPRN PRN nausea 08/15/23 08/23/2308/21/24 History
prochlorperazine maleate 10 mg 10 mg PO Q6H PRN nausea 08/15/23 08/23/23 08/20/23 History
tablet (Compazine)
allopurinol 300 mg tablet 300 mg PO DAILY 08/23/23 08/23/23 08/22/23 History
ibuprofen 200 mg tablet (Advil) 400 mg PO Q6HPRN PRN MILD PAIN 08/23/23 08/23/23 Unknown History
loperamide 2 mg tablet 2 mg PO Q4HPRN PRN DIARRHEA 08/23/23 08/23/23 08/20/23 History
Active Medications
Generic Name Dose Route Start Last Admin
Trade Name Freq PRN Reason Stop Dose Admin
Acetaminophen 650 mg 08/23/23 15:54 08/23/23 20:06
Acetaminophen 325 Mg Tablet PO 09/20/23 15:53 650 mg
Q4HPRN PRN Administration
mild pain/ fever>100.5F
Allopurinol 300 mg 08/24/23 08:00
Allopurinol 300 Mg Tablet PO 09/21/23 07:59
DAILY FRANC
Cefepime HCl 2,000 mg 08/23/23 22:00 08/24/23 05:29
Cefepime Hcl 2,000 Mg/12.5 Ml Vial IV 2,000 mg
Q8H FRANC Administration
Dextrose 12.5 grams 08/23/23 15:54
Dextrose 50% (0.5 Grams/Ml) 50 Ml Syringe IV 09/20/23 15:53
[id number] PRN
hypoglycemia
Protocol
Enoxaparin Sodium 40 mg 08/23/23 18:00 08/23/23 18:17
Enoxaparin Sodium 40 Mg/0.4 Ml Syringe SC 09/20/23 17:59 40 mg
QPM FRANC Administration
Fenofibrate 145 mg 08/24/23 08:00
Fenofibrate 145 Mg Tablet PO 09/21/23 07:59
DAILY FRANC
Fluoxetine HCl 40 mg 08/24/23 08:00
Fluoxetine 20 Mg Capsule PO 09/21/23 07:59
DAILY FRANC
Glucagon 1 mg 08/23/23 15:54
Glucagon 1 Mg Vial IM 09/20/23 15:53
PRN PRN
hypoglycemia
Protocol
Vancomycin HCl 1,250 mg/ 275 mls @ 183.33 mls/hr 08/24/23 09:00
Sodium Chloride IV
Q12@0600,1800 FRANC
Protocol
Insulin Aspart 0 units 08/23/23 16:30 08/24/23 07:35
Insulin Aspart Low Resistance 300 Units/3 Ml Pen.Injctr SC 09/20/23 16:29 Not Given
AC FRANC
Protocol
Levothyroxine Sodium 125 mcg 08/24/23 07:00 08/24/23 05:29
Levothyroxine 125 Mcg Tablet PO 09/21/23 06:59 125 mcg
DAILY@0700 FRANC Administration
Lisinopril 10 mg 08/24/23 08:00
Lisinopril 10 Mg Tablet PO 09/21/23 07:59
DAILY FRANC
Loratadine 10 mg 08/24/23 08:00
Loratadine 10 Mg Tablet PO 09/21/23 07:59
DAILY FRANC
Metformin HCl 500 mg 08/23/23 20:00 08/23/23 20:07
Metformin 500 Mg Regular Release Tablet PO 09/20/23 19:59 500 mg
BID FRANC Administration
Metoprolol Succinate 25 mg 08/24/23 08:00
Metoprolol 25 Mg Extended Release Tablet PO 09/21/23 07:59
DAILY FRANC
Nystatin 5 ml 08/23/23 18:00 08/23/23 21:33
Nystatin Oral Suspension 500,000 Units/5 Ml PO 09/20/23 17:59 5 ml
QID FRANC Administration
Oxycodone HCl 5 mg 08/24/23 00:57
Oxycodone 5 Mg Regular Release Tablet PO 09/07/23 00:56
Q4HPRN PRN
severe pain
Pantoprazole Sodium 40 mg 08/24/23 08:00
Pantoprazole 40 Mg Delayed Release Tablet PO 09/21/23 07:59
DAILY FRANC
Prochlorperazine Edisylate 5 mg 08/23/23 22:13 08/24/23 06:36
Prochlorperazine 10 Mg/2 Ml Vial IV 09/20/23 22:12 5 mg
Q6HPRN PRN Administration
nausea
Rosuvastatin Calcium 20 mg 08/24/23 08:00
Rosuvastatin (Crestor) 20 Mg Tablet PO 09/21/23 07:59
DAILY FRANC
Sodium Chloride 0 flush 08/23/23 17:00
Sodium Chloride 0.9% (Flush) Syringe IV 09/20/23 16:59
PER PROTOCOL FRANC
Sterile Water 10 ml 08/23/23 22:00 08/24/23 05:29
Sterile Water For Injection 10 Ml Vial IV 09/20/23 21:59 10 ml
Q8H FRANC Administration
Review of Systems
-
History Source: Patient, Physician, Coordinated Provider and Records
Constitutional: Reports Fatigue
EENT: Reports Other (sinus pain)
Respiratory: Reports No Symptoms
Cardiac: Reports No Symptoms
GI: Reports No Symptoms
Breast: Reports N/A
: Reports No Symptoms
Musculoskeletal: Reports No Symptoms
Skin: Reports No Symptoms
Neuro: Reports No Symptoms
Endocrine: Reports No Symptoms
Hematologic/Lymphatic: Reports Swollen Glands
Allergy / Immunology: Reports No Symptoms
Psych: Reports No Symptoms
Physical Exam
-
Patient is resting comfortably in bed. She states she has a consultation with [facility] tomorrow for a second opinion which she is upset that she will miss. She denies fever/chills this morning and reports her pain is improved.
General: Well Developed, Well Nourished, No Apparent Distress, Comfortable and Conversant; Negative Pain, Fever or Chills
HEENT: Other (erythema, swelling of right jaw/neck); Negative Jaundice
Cardiology: S1, S2 and Other (tachycardia)
Pulmonary: Clear and Other (room air)
GI: Soft and Normal Bowel Sounds
Musculoskeletal: No Edema
Extremities: Pulses Present
Neurology: Non Focal
Skin: Warm, Dry and Other (appears flushed)
Psych: Calm
Labs
Lab Results
WBC 5.3 10^3/uL (4.8-10.8) 08/24/23 04:36
RBC 3.44 10^6/uL (4.20-5.40) L 08/24/23 04:36
Hgb 10.0 g/dL (12.0-16.0) L 08/24/23 04:36
Hct 30.4 % (37.0-47.0) L 08/24/23 04:36
MCV 88.4 fL (81.0-99.0) 08/24/23 04:36
MCH 29.1 pg (27.0-31.0) 08/24/23 04:36
MCHC 32.9 g/dL (33.0-37.0) L 08/24/23 04:36
RDW 12.9 % (11.5-14.5) 08/24/23 04:36
Plt Count 120 10^3/uL (130-400) L 08/24/23 04:36
MPV 10.2 fL (7.4-10.4) 08/24/23 04:36
Creatinine 0.6 mg/dL (0.6-1.0) 08/24/23 04:35
Vital Signs
Vital Signs
Temp Pulse Resp BP Pulse Ox
99 F 105 16 125/85 96
08/24/23 07:05 08/24/23 07:05 08/24/23 07:05 08/24/23 07:05 08/24/23 07:05
08/23/23: Neck CT: No abnormal focal fluid collection such as an abscess with evaluation somewhat limited by prominent dental beam hardening artifact.Partially included on this study are prominent left axillary lymph nodes also seen on recent PET
scan, correlating with the patient's history of Lymphoma
08/23/23 Orthopantogram: There is 7.5 mm radicular cyst at the root of the left mandibular second molar.There is root canal at the second mandibular molars bilaterally and left maxillary first molar.There is dental amalgam in multiple teeth.There is
an unerupted left maxillary third molar with its root extending to the margin of the left maxillary sinus.
[2023-08-24] MEDS: GLUCOPHAGE PO ×3 (09:40→20:47)
[2023-08-24] MEDS: MYCOSTATIN ORAL SUSPENSION 5 ML PO ×4 (09:41→23:00)
[2023-08-24] MEDS: CRESTOR 20 MG PO (09:41)
[2023-08-24] MEDS: PROTONIX 40 MG PO (09:41)
[2023-08-24] MEDS: ZYLOPRIM 300 MG PO (09:41)
[2023-08-24] MEDS: TRICOR 145 MG PO (09:41)
[2023-08-24] MEDS: TOPROL XL 25 MG PO (09:42)
[2023-08-24] MEDS: PROZAC 40 MG PO (09:42)
[2023-08-24] MEDS: ZESTRIL 10 MG PO (09:42)
[2023-08-24] MEDS: CLARITIN 10 MG PO (09:42)
[2023-08-24] MEDS: VANCOCIN 275 MG IV ×2 (09:43→18:13)
[2023-08-24 11:44] LABS: Glucose - Point of Care 100 mg/dl (70-99)
--- NOTE | 2023-08-24 13:44 | CON.ID ---
Consultation
-
Date/Time Consultation Requested: 08/23/2023 1530
Date/Time Consultation Performed: 08/24/2023 1327
Requesting Provider: Edwige Adam
Performing Provider: Dr. Ward
Reason for Consultation: Febrile neutropenia
Chief Complaint / Past History
History of Present Illness
Radha Champion is a 68-year-old female being evaluated at the request of Edwige Adam regarding febrile neutropenia. History is obtained from chart review, along with patient interview.
The patient has a significant past medical history of diffuse large B-cell lymphoma, and recently initiated chemotherapy. (Approximately 9 days ago). She reports several days later she began to have some facial pain in the sinus region along with
headache and sinus congestion. Earlier this week she was seen at [facility] and received some IV fluids. She reports that her nurse spoke with a physician machine striper and because of symptomatology, she was started on amoxicillin. She
notes that she took approximately 2 doses, but thereafter developed shaking chills and was then advised to come to the emergency room for further workup. Additionally, she reports the development of bilateral submandibular discomfort, but not overt
pain. She notes that she recently received Neulasta.
At present, she reports feeling improved. She has been started on empiric antibiotics.
Past History
Additional Past Medical History:
Diffuse large B-cell lymphoma (recently initiated chemotherapy)
Breast cancer (DCIS)
Thyroid cancer
DM
HTN
Additional Past Surgical History:
Lumpectomy/mastectomy
Thyroid surgery
Modified neck dissection
Breast implants
Port-A-Cath placement
Allergy History:
No Known Allergies Allergy (Unverified 08/23/23 17:56)
Medications Reviewed: Yes
Current Antibiotics:
Vancomycin
Cefepime
Social History
Tobacco: Non-Smoker
Alcohol: Occasional
Drug: None
Employment: Retired
Family History
Family History: Not Pertinent
Review of Systems
Vital Signs
Temp Pulse Resp BP Pulse Ox
99 F 105 16 125/85 96
08/24/23 07:05 08/24/23 09:42 08/24/23 07:05 08/24/23 09:42 08/24/23 08:00
Physical Exam
Physical Exam
Constitutional: No Acute Distress, Comfortable and Non-toxic
Eyes: Pupils Equal, Pupils Round, No Conjunctival Hemorrhage and Sclera Anicteric
Oral: No Thrush and No Ulcers
Cardiovascular: S1/S2 and S3/S4; Negative Murmur
Pulmonary: Non Labored; Negative Wheezes, Rales or Rhonchi
Gastrointestinal: Soft, Non Tender, Non Distended and Normal Bowel Sounds
Extremities: Edema; Negative Cyanosis or Erythema
Skin: Warm and Dry; Negative Rash or Jaundice
Neurological: Awake and Alert
Psychological: Calm
Lab / Diagnostic Study Results
08/24/23 04:36
08/24/23 04:35
Abs Immat Gran (auto) 0.5 10^3/uL (0-0.05) H 08/24/23 04:36
Absolute Neuts (auto) 2.5 10^3/uL (1.4-6.5) 08/24/23 04:36
Absolute Lymphs (auto) 1.7 10^3/uL (1.2-3.4) 08/24/23 04:36
Absolute Monos (auto) 0.5 10^3/uL (0.1-0.6) 08/24/23 04:36
Absolute Basos (auto) 0.0 10^3/uL (0-0.2) 08/24/23 04:36
Total Counted 100 08/23/23 12:57
Immature Gran % 9.1 % (0-0.5) H 08/24/23 04:36
Neutrophils % 47.8 % (42.2-75.2) 08/24/23 04:36
Lymphocytes % 32.6 % (20.5-51.1) 08/24/23 04:36
Monocytes % 9.3 % (1.7-9.3) 08/24/23 04:36
Eosinophils % 1.0 % (0-6) 08/24/23 04:36
Basophils % 0.2 % (0-2) 08/24/23 04:36
Abs Neuts (Manual) 0.8 10^3/uL (1.4-6.5) L* 08/23/23 12:57
Segmented Neutrophils 26 % (42-75) L 08/23/23 12:57
Band Neutrophils 14 % (0-3) H 08/23/23 12:57
Lymphocytes (Manual) 36 % (20-51) 08/23/23 12:57
Eosinophils (Manual) 2 % (0-6) 08/23/23 12:57
Lactic Acid 1.2 mmol/L (0.7-2.0) 08/23/23 13:35
Microbiology Results
Micro:
08/23/23 13:35 Blood Culture - Preliminary
Blood/Venous No Growth in 24 hours- Final report to follow
08/23/23 15:19 Influenza Types A & B (DL) - Final
Nasal Swab Negative for Influenza A & B, NAAT
Negative results must be combined with clinical observations
and patient history.
Nucleic Acid Amplification test (NAAT)performed on the
[employer] platform.
08/23/23 13:51 Blood Culture - Pending
Blood/Venous
Imaging:
08/23/2023 CT neck with IV contrast: No abnormal focal fluid collections such as abscess seen although evaluation is somewhat limited secondary to prominent dental beam hardening artifact. Prominent left axillary lymph nodes are noted which were
also seen on a recent PET scan. Please see full dictation for additional detail.
Assessment / Plan
Fevers/chills
Neutropenia
Diffuse large B-cell lymphoma
-Recent initiation of chemotherapy
Hx Breast cancer (DCIS)
Hx Thyroid cancer
DM
HTN
Recommendations:
Continue with cefepime for the present while blood cultures are pending.
Discontinue further vancomycin.
Monitor temperature curve.
Follow white count.
Repeat blood cultures x 2 for temperature greater than 100.5 degrees.
Care Review
Plan reviewed with: Physician (Hospitalist)
--- NOTE | 2023-08-24 13:52 | W.PN.HOSP.TC ---
Today's Communication/Plan
-
apprec ID/heme
hopeful d/c tomorrow
Assessment / Plan
Assessment / Plan
pt is a 68 year old female
Sepsis secondary to likely Neutropenic Fever--resolved, ANC 2.5--doubt true infection BUT will barraza culture--apprec ID and heme/onc--cont cefepime and added vanco, now back to cefepime--panorex neg--CT neck without abscess----Covid neg--UA neg
Thrush--Start Nystatin
Diabetes Mellitus, Type II--Continue Metformin--Monitor sugars and continue coverage insulin
Essential Hypertension--Continue Lisinopril and Metoprolol
Hyperlipidemia--Continue fenofibrate and rosuvastatin
Depression--Continue fluoxetine
Diffuse Large B-Cell Lymphoma with pancytopenia--Last Chemotherapy August 15 (first round, also got neulasta day after)
Hx Thyroid CA s/p Thyroidectomy--Continue Synthroid
Hx Breast Cancer s/p Left Mastectomy
DVT proph: Lovenox
Code Status: Full Code
Anticipated Discharge: Within 24 hours
Subjective/Interval History
-
Date of Service: August 24, 2023
pt feeling better
Objective Data
-
Labs:
Laboratory Results
08/24/23 08/24/23
04:35 04:36
WBC 5.3
Hgb 10.0 L
Hct 30.4 L
Plt Count 120 L
Sodium 135
Potassium 3.6
Chloride 103
Carbon Dioxide 22
BUN 12
Creatinine 0.6
Glucose 106 H
Calcium 8.9
Vital Signs:
max temp for 24 hours
08/23/23
12:05
Temp 100.4 F H
Vital Signs
Temp Pulse Resp BP Pulse Ox
99 F 105 16 125/85 96
08/24/23 07:05 08/24/23 09:42 08/24/23 07:05 08/24/23 09:42 08/24/23 08:00
I&O
08/23/23 08/24/23 08/25/23
06:59 06:59 06:59
Intake Total 720 / 720
Balance 720 / 720
Review of Systems
-
All other systems: Reviewed and negative
Physical Exam
-
General: Well Developed, Well Nourished and No Apparent Distress
HEENT: Normocephalic and Atraumatic
Respiratory: Clear to Auscultation; Negative Wheezes or Rhonchi
Cardiac: Regular Rhythm and S1/S2; Negative Murmur
GI: Soft, Nontender, Nondistended and Normal Bowel Sounds
Musculoskeletal: No Clubbing, No Cyanosis and No Edema
Skin: Warm
Neuro: Awake
--- NOTE | 2023-08-24 13:53 | CM ---
Patient seen at bedside with physician. Patient states that she lives with her in a 2 story home with a first floor master. Patient stated that her PCP is Dr. Raúl Campos and she uses the [facility] [address]. Patient indicated that she was
independent of ADL's and IADL's and driving. Patient with no DME or VN needs. CM will continue to follow for discharge planning needs.
Plan; home with no needs anticipated
[2023-08-24 15:48] VITALS: BP 107/72
[2023-08-24 16:37] LABS: Glucose - Point of Care 86 mg/dl (70-99)
[2023-08-24] MEDS: TYLENOL 650 MG PO (16:51)
[2023-08-24] MEDS: LOVENOX 40 MG SC (16:51)
[2023-08-24 21:41] LABS: Glucose - Point of Care 111 mg/dl (70-99)
[2023-08-24 23:38] VITALS: BP 155/99
[2023-08-25 05:42] VITALS: BMI 47.1
[2023-08-25] MEDS: MAXIPIME 2000 MG IV (05:51)
[2023-08-25] MEDS: STERILE WATER FOR INJECTION 10 ML IV (05:51)
[2023-08-25] MEDS: VANCOCIN 275 MG IV (05:52)
[2023-08-25] MEDS: SYNTHROID 125 MCG PO (05:52)
[2023-08-25 06:20] LABS: % Basophils 0.2 % (0-2); % Eosinophils 0.7 % (0-6); % Immature Granulocytes 8.3 % (0-0.5); % Lymphocytes 28.6 % (20.5-51.1); % Monocytes 9.1 % (1.7-9.3); % Neutrophils 53.1 % (42.2-75.2); Absolute Eosinophils 0.1 10^3/uL (0-0.7); Absolute Immature Granulocytes 0.8 10^3/uL (0-0.05); Absolute Lymphocytes 2.7 10^3/uL (1.2-3.4); Absolute Monocytes 0.9 10^3/uL (0.1-0.6); Hematocrit 30.7 % (37.0-47.0); Hemoglobin 10.3 g/dL (12.0-16.0); Mean Corp Hgb Conc. 33.6 g/dL (33.0-37.0); Mean Corpuscular Hgb 29.6 pg (27.0-31.0); Mean Corpuscular Volume 88.2 fL (81.0-99.0); Mean Platelet Volume 10.4 fL (7.4-10.4); Nucleated Red Blood Cells % 0.4 %; Platelet Count 123 10^3/uL (130-400); Red Blood Cell Count 3.48 10^6/uL (4.20-5.40); Red Cell Dist. Width 12.7 % (11.5-14.5); White Blood Cell Count 9.4 10^3/uL (4.8-10.8)
[2023-08-25 06:27] LABS: Blood Urea Nitrogen 10 mg/dl (7-17); Calcium 8.7 mg/dl (8.4-10.2); Carbon Dioxide 24 mmol/L (22-30); Chloride 103 mmol/L (98-107); Estimated Creatinine Clearance 109 ml/min; Glucose 99 mg/dl (70-99); Potassium 3.3 mmol/L (3.5-5.1); Sodium 136 mmol/L (135-145); eGFR > 60.00
[2023-08-25 07:03] VITALS: BP 121/63
[2023-08-25 07:21] LABS: Glucose - Point of Care 118 mg/dl (70-99)
[2023-08-25] MEDS: KCL 40 MEQ PO (08:19)
[2023-08-25] MEDS: TRICOR 145 MG PO (08:20)
[2023-08-25] MEDS: GLUCOPHAGE PO (08:20)
[2023-08-25] MEDS: CRESTOR 20 MG PO (08:20)
[2023-08-25] MEDS: ZYLOPRIM 300 MG PO (08:21)
[2023-08-25] MEDS: PROZAC 40 MG PO (08:21)
[2023-08-25] MEDS: PROTONIX 40 MG PO (08:21)
[2023-08-25] MEDS: CLARITIN 10 MG PO (08:21)
[2023-08-25] MEDS: TOPROL XL 25 MG PO (08:21)
[2023-08-25] MEDS: MYCOSTATIN ORAL SUSPENSION 5 ML PO ×2 (08:21→13:11)
[2023-08-25] MEDS: ZESTRIL 10 MG PO (08:22)
--- NOTE | 2023-08-25 11:51 | W.PN.ID1 ---
Date of Service
Date of Service: August 25, 2023
Today's Communication
Discontinue antibiotics and observe.
Assessment / Plan
Fevers/chills
- resolved
Neutropenia
- resolved
Diffuse large B-cell lymphoma
-Recent initiation of chemotherapy
Hx Breast cancer (DCIS)
Hx Thyroid cancer
DM
HTN
Recommendations:
Patient no longer neutropenic. No further fevers.
Cultures negative.
Discontinue further antibiotics and observe.
����������������������������������������������������������
Chief Complaint
-: Other (Febrile neutropenia)
Subjective / Review of Systems
Review of Systems: No Fever and No Chills
Vital Signs / Physical Exam
Vital Signs
Vital Signs
Temp Pulse Resp BP Pulse Ox
98.0 F 97 16 121/63 96
08/25/23 07:03 08/25/23 08:22 08/25/23 07:03 08/25/23 08:22 08/25/23 08:00
Physical Exam
Constitutional: No Acute Distress, Comfortable and Non-toxic
Cardiovascular: S1/S2; Negative S3/S4
Pulmonary: Clear and Non Labored; Negative Wheezes or Rales
Gastrointestinal: Soft and Non Tender
Neurological: Awake and Alert
Psychological: Calm
Objective Data
Lab Data
Lab Results
08/25/23 05:00
08/25/23 05:00
Estimated Creat Clear 109 ml/min 08/25/23 05:00
Lactic Acid 1.2 mmol/L (0.7-2.0) 08/23/23 13:35
Total Bilirubin 0.8 mg/dl (0.2-1.3) 08/23/23 12:57
AST 23 U/L (14-36) 08/23/23 12:57
ALT 18 U/L (0-35) 08/23/23 12:57
Alkaline Phosphatase 69 U/L (38-126) 08/23/23 12:57
Most recent labs reviewed.
Micro Results:
08/23/23 13:51 Blood Culture - Preliminary
Blood/Venous No Growth in 24 hours- Final report to follow
08/23/23 13:35 Blood Culture - Preliminary
Blood/Venous No Growth in 24 hours- Final report to follow
08/23/23 15:19 Influenza Types A & B (DL) - Final
Nasal Swab Negative for Influenza A & B, NAAT
Negative results must be combined with clinical observations
and patient history.
Nucleic Acid Amplification test (NAAT)performed on the
[employer] platform.
Imaging:
08/23/2023 CT neck with IV contrast: No abnormal focal fluid collections such as abscess seen although evaluation is somewhat limited secondary to prominent dental beam hardening artifact. Prominent left axillary lymph nodes are noted which were
also seen on a recent PET scan. Please see full dictation for additional detail.
[2023-08-25 12:14] LABS: Glucose - Point of Care 105 mg/dl (70-99)
--- NOTE | 2023-08-25 12:45 | W.PN.ONC2 ---
Today's Communication / Plan
-
Okay for D/C home.
Impression
Impression
Neutropenic fever
Diffuse large B-cell lymphoma s/p CHOP,Rituxan 08/14, GCS-F support 08/15, already with clinical response
Sinus/facial pain/congestion
Plan
Plan
Pt doing well.
No persistent infectious symptoms and WBC well within normal range.
Should probably complete a course of antibiotics for sinusiti.
Okay for D/C home.
Subjective/Objective
Chief Complaint
Heme/Onc follow up large cell lymphoma, neutropenic fever
Subjective
Known to me from outpt setting. Has already noted improvement in left upper chest wall swelling.
No further fevers. Improved sinusitis symptoms.
Vital Signs:
Vital Signs
Temp Pulse Resp BP Pulse Ox
98.0 F 97 16 121/63 96
08/25/23 07:03 08/25/23 08:22 08/25/23 07:03 08/25/23 08:22 08/25/23 08:00
Lab Results:
Laboratory Data
WBC 9.4 10^3/uL (4.8-10.8) 08/25/23 05:00
Hgb 10.3 g/dL (12.0-16.0) L 08/25/23 05:00
Plt Count 123 10^3/uL (130-400) L 08/25/23 05:00
eGFR > 60.00 08/25/23 05:00
Physical Exam
L axillary nodes no longer discretely palpable
L upper chest wall swelling improved
HEENT: Moist Mucous Membranes; No Jaundice
Cardiology: Normal Sinus Rhythm, S1 and S2
Pulmonary: Clear and Wheezes
GI: Soft and Normal Bowel Sounds
Neuro: Non Focal
Review of Systems
Review of Systems
Constitutional: Denies Fever or Fatigue
Head: Denies Sore Throat or Hearing Loss
Respiratory: Denies Dyspnea or Cough
Cardiovascular: Denies Chest Pain or Palpitations
Gastrointestinal: Denies Nausea/Vomiting or Diarrhea
Genitourinary: Denies Hematuria
Skin: Denies Rash or Pruritis
Neurological: Denies Headache or Numbness
Psychiatric: Denies Depression or Insomnia
Hem/Lymphatic: Denies Easy Bruising or Night Sweats
--- NOTE | 2023-08-25 14:15 | W.PN.HOSP.TC ---
Today's Communication/Plan
-
d/c
Assessment / Plan
Assessment / Plan
pt is a 68 year old female
Sepsis secondary to likely Neutropenic Fever--resolved, ANC 2.5--doubt true infection BUT will barraza culture--apprec ID and heme/onc--cultures negative--panorex neg--CT neck without abscess----Covid neg--UA neg
Thrush--Start Nystatin
Diabetes Mellitus, Type II--Continue Metformin--Monitor sugars and continue coverage insulin
Essential Hypertension--Continue Lisinopril and Metoprolol
Hyperlipidemia--Continue fenofibrate and rosuvastatin
Depression--Continue fluoxetine
Diffuse Large B-Cell Lymphoma with pancytopenia--Last Chemotherapy August 15 (first round, also got neulasta day after)
Hx Thyroid CA s/p Thyroidectomy--Continue Synthroid
Hx Breast Cancer s/p Left Mastectomy
DVT proph: Lovenox
Code Status: Full Code
Anticipated Discharge: Today
Subjective/Interval History
-
Date of Service: August 25, 2023
pt ready for d/c
Objective Data
-
Labs:
Laboratory Results
08/25/23
05:00
WBC 9.4
Hgb 10.3 L
Hct 30.7 L
Plt Count 123 L
Sodium 136
Potassium 3.3 L
Chloride 103
Carbon Dioxide 24
BUN 10
Creatinine 0.6
Glucose 99
Calcium 8.7
Vital Signs:
max temp for 24 hours
08/24/23
23:38
Temp 98.9 F
Vital Signs
Temp Pulse Resp BP Pulse Ox
98.0 F 97 16 121/63 96
08/25/23 07:03 08/25/23 08:22 08/25/23 07:03 08/25/23 08:22 08/25/23 08:00
I&O
08/24/23 08/25/23 08/26/23
06:59 06:59 06:59
Intake Total 720 / 720 1420 / 1420
Balance 720 / 720 1420 / 1420
Review of Systems
-
All other systems: Reviewed and negative
Physical Exam
-
General: Well Developed, Well Nourished, No Apparent Distress and Obese
HEENT: Normocephalic and Atraumatic
Respiratory: Clear to Auscultation; Negative Wheezes or Rhonchi
Cardiac: Regular Rhythm and S1/S2; Negative Murmur
GI: Soft, Nontender, Nondistended and Normal Bowel Sounds
Musculoskeletal: No Clubbing, No Cyanosis and No Edema
Neuro: Awake
Psych: Calm
--- NOTE | 2023-08-25 15:00 | PTCARENOTE ---
Patient refused her discharged vitals signs. no s/s of distress noted.
--- NOTE | 2023-08-25 15:07 | CM ---
Patient seen at bedside with physician. Patient reviewed IMM and signed form placed on chart. Patient plan is for discharge home. Patient has a ride from family. CM will continue to follow for discharge planning needs.
Plan; home with no needs.
--- NOTE | 2023-08-25 16:56 | W.DCSUMMARY ---
Addendum entered and electronically signed by Kenzie Moore MD 09/01/23 06:41:
Diffuse Large B-Cell Lymphoma with pancytopenia due to combination of lymphoma and chemotherapy--Last Chemotherapy August 15
Original Note:
Discharge Summary
Discharge Data
Date of Admission: 08/23/23
Date of Discharge: 08/25/23
-
Pending Results: No
Hospital Course
Primary care physician : Raúl Del Castillo
Principal Discharge diagnosis : Sepsis secondary to neutropenic fever, thrush
Chronic Discharge diagnosis : Type 2 diabetes mellitus, essential hypertension, hyperlipidemia, depression, diffuse large B-cell lymphoma with pancytopenia, history of thyroid cancer status post thyroidectomy, history of breast cancer status post
left mastectomy
Hospital Course : Patient is a 68-year-old female with a history of essential hypertension hyperlipidemia and diabetes who presented with shaking chills. Patient reported that she was recently diagnosed with lymphoma and started treatment. First
dose of chemotherapy was on August 15. She then received a dose of Neulasta the following day. Patient complained of sinus pressure and got started on a course of amoxicillin. Her facial pain did improve. On the morning of admission, she had
significant shaking chills and a temperature of 100 degrees at home. She was in contact with her oncologist who referred her to the emergency department for evaluation. Patient was admitted.
Problem #1: Sepsis secondary to neutropenic fever. Patient had swelling and redness of her right neck and lower jaw area. CAT scan was done in the emergency department which was negative for abscess. Panoramic x-rays were done to assess for
dental abscess. They were negative. Blood cultures were negative. UA was negative and chest x-ray was deferred as patient had no lung symptoms at all. She was seen in consultation by infectious disease and hematology/oncology. Patient will not
be discharged on any antibiotics as all infectious workup was negative.
Problem #2: Thrush. Patient was continued on nystatin.
Problem #3: All other medical issues. These include Type 2 diabetes mellitus, essential hypertension, hyperlipidemia, depression, diffuse large B-cell lymphoma with pancytopenia, history of thyroid cancer status post thyroidectomy, history of
breast cancer status post left mastectomy. These medical issues were stable during her hospitalization. Medications were continued as able.
Patient is stable for discharge home at this time. If there are any questions regarding this dictation or her hospital stay, please not hesitate to call. Our office number is [phone].
Important imaging findings :
NECK CT IMPRESSION:
No abnormal focal fluid collection such as an abscess with evaluation somewhat limited by prominent dental beam hardening artifact.
Partially included on this study are prominent left axillary lymph nodes also seen on recent PET scan, correlating with the patient's history of Lymphoma.
Discharge Plan
-
Patient Disposition: Home (Routine Discharge)
Discharge Diagnosis/Procedures: Sepsis secondary to neutropenic fever, thrush, type 2 diabetes mellitus, essential hypertension, hyperlipidemia, depression, diffuse large B-cell lymphoma with pancytopenia, history of thyroid cancer status post
thyroidectomy, history of breast cancer status post left mastectomy
Condition: Good
Diet: As tolerated and Regular
Activity: As tolerated
Driving Restrictions: As prior to admission
Bathing Restrictions: None
Referrals:
Raúl Del Castillo DO [Family Provider] - in less than 1 week
Prescriptions:
New
acetaminophen 325 mg Tablet
650 mg PO Q4HPRN PRN (Reason: mild pain/ fever>100.5F) Qty: 0 0RF
Continued
fluoxetine 40 mg Capsule
40 mg PO DAILY
metformin 500 mg Tablet
500 mg PO BID
pantoprazole 40 mg Tablet,Delayed Release (Dr/Ec)
40 mg PO DAILY
lisinopril 10 mg Tablet
10 mg PO DAILY
levothyroxine [Synthroid] 150 mcg Tablet
125 mcg PO DAILY
metoprolol succinate 25 mg Tablet Extended Release 24 Hr
25 mg PO DAILY
loratadine 10 mg Tablet
10 mg PO DAILY
rosuvastatin 10 mg Tablet
20 mg PO DAILY
fenofibrate 160 mg Tablet
160 mg PO DAILY
calcium carbonate-vitamin D3 [Calcium 500 + D] 500 mg-10 mcg (400 unit) Tablet
1 tab PO DAILY
ondansetron HCl 8 mg Tablet
8 mg PO Q8HPRN PRN (Reason: nausea)
prochlorperazine maleate [Compazine] 10 mg Tablet
10 mg PO Q6H PRN (Reason: nausea)
loperamide 2 mg Tablet
2 mg PO Q4HPRN PRN (Reason: diarrhea )
allopurinol 300 mg Tablet
300 mg PO DAILY
Discontinued
ibuprofen [Advil] 200 mg Tablet
400 mg PO Q6HPRN PRN (Reason: mild pain )
Discharge Orders:
Discharge Patient (As Directed); Ordered 08/25/23
Ordered By: Kenzie Moore
Discharge Date and Time
Discharge Date/Time: 08/25/23 15:52
Print Language: WELSH
--- NOTE | 2023-08-29 15:01 | PN.CDI ---
CDI
- -
CDI:
Physician Documentation Request
Admit Date: 08/23/23 15:27
Dear Doctor Oscar,
Patient admitted with sepsis secondary to neutropenic fever.
08/24 PN, 'Diffuse Large B-Cell Lymphoma with pancytopenia--Last Chemotherapy August 15.'
Please provide in your note the likely etiology/ etiologies of pancytopenia:
Multifactorial due to lymphoma and chemotherapy
Chemotherapy only
Lymphoma only
Other
Use of terms such as suspected, likely, concern for, or probable (associated with a specific diagnosis that is being evaluated, monitored, or treated as if it exists) are acceptable and can be coded in the inpatient setting, when documented at the
time of discharge.
Thank you,
Maureen NAVARRO,RN,CCDS
CDI Specialist
Available via tiger text
Please use your independent medical judgment in providing your response.
== END 2023-08-25 15:52 | disposition home or self-care (01) | DRG 871 ==
LOC: 2 NORTH 15:27
PROVIDERS: Physician Assistant; Physician Assistant Medical; ADMITTING PHYSICIAN Internal Medicine; EMERGENCY PHYSICIAN Student in an Organized Health Care Education/Training Program; FAMILY PHYSICIAN Family Medicine; OTHER PHYSICIAN Internal Medicine Hematology & Oncology; OTHER PHYSICIAN Internal Medicine Infectious Disease
DX: A41.9 Sepsis, unspecified organism (principal); D61.810 Antineoplastic chemotherapy induced pancytopenia; C83.30 Diffuse large B-cell lymphoma, unspecified site; B37.0 Candidal stomatitis; E11.649 Type 2 diabetes mellitus with hypoglycemia without coma; I10 Essential (primary) hypertension; D70.9 Neutropenia, unspecified; R50.81 Fever presenting with conditions classified elsewhere; E78.5 Hyperlipidemia, unspecified; E89.0 Postprocedural hypothyroidism; F32.A Depression, unspecified; Z85.3 Personal history of malignant neoplasm of breast; Z85.850 Personal history of malignant neoplasm of thyroid; Z92.3 Personal history of irradiation; Z79.84 Long term (current) use of oral hypoglycemic drugs; Z90.12 Acquired absence of left breast and nipple; Z79.890 Hormone replacement therapy
CPT/HCPCS: 70355; 70491; 80048; 80053; 80202; 81003; 82962; 83036; 83605; 83735; 85025; 87040; 87502; 87811; 96361; 96374; 99285; Q9967

== ENCOUNTER 2023-08-29 11:09 | Outpatient (RCR) | payer BC, SELFPAY ==
[2023-08-29 11:34] LABS: % Basophils 0.9 % (0-2); % Eosinophils 0.6 % (0-6); % Immature Granulocytes 4.6 % (0-0.5); % Lymphocytes 34.6 % (20.5-51.1); % Monocytes 7.5 % (1.7-9.3); % Neutrophils 51.8 % (42.2-75.2); Absolute Basophils 0.1 10^3/uL (0-0.2); Absolute Eosinophils 0.1 10^3/uL (0-0.7); Absolute Immature Granulocytes 0.4 10^3/uL (0-0.05); Absolute Monocytes 0.7 10^3/uL (0.1-0.6); Absolute Neutrophils 4.5 10^3/uL (1.4-6.5); Hematocrit 33.2 % (37.0-47.0); Hemoglobin 11.1 g/dL (12.0-16.0); Mean Corp Hgb Conc. 33.4 g/dL (33.0-37.0); Mean Corpuscular Hgb 30.1 pg (27.0-31.0); Mean Platelet Volume 9.1 fL (7.4-10.4); Platelet Count 302 10^3/uL (130-400); Red Blood Cell Count 3.69 10^6/uL (4.20-5.40); White Blood Cell Count 8.8 10^3/uL (4.8-10.8)
[2023-08-29 12:14] LABS: ALT (SGPT) 21 U/L (0-35); AST (SGOT) 26 U/L (14-36); Albumin 3.9 g/dl (3.5-5.0); Alkaline Phosphatase 72 U/L (38-126); Blood Urea Nitrogen 12 mg/dl (7-17); Calcium 9.4 mg/dl (8.4-10.2); Carbon Dioxide 27 mmol/L (22-30); Chloride 104 mmol/L (98-107); Glucose 109 mg/dl (70-99); LDH 248 U/L (120-246); Potassium 3.7 mmol/L (3.5-5.1); Sodium 137 mmol/L (135-145); Total Bilirubin 0.4 mg/dl (0.2-1.3); Total Protein 6.4 g/dl (6.3-8.2); Uric Acid 2.1 mg/dl (2.5-6.2); eGFR > 60.00
[2023-09-05] VITALS (9 sets, daily range): BP systolic 111–131; BP diastolic 45–59; BMI 46.8
[2023-09-05 08:09] LABS: % Basophils 0.9 % (0-2); % Eosinophils 0.3 % (0-6); % Immature Granulocytes 0.4 % (0-0.5); % Monocytes 8.7 % (1.7-9.3); % Neutrophils 46.7 % (42.2-75.2); Absolute Basophils 0.1 10^3/uL (0-0.2); Absolute Monocytes 0.6 10^3/uL (0.1-0.6); Absolute Neutrophils 3.3 10^3/uL (1.4-6.5); Hematocrit 33.3 % (37.0-47.0); Hemoglobin 11.3 g/dL (12.0-16.0); Mean Corp Hgb Conc. 33.9 g/dL (33.0-37.0); Mean Corpuscular Volume 91.5 fL (81.0-99.0); Red Blood Cell Count 3.64 10^6/uL (4.20-5.40); Red Cell Dist. Width 14.1 % (11.5-14.5)
[2023-09-05 08:13] LABS: Mean Platelet Volume 8.9 fL (7.4-10.4); Platelet Count 618 10^3/uL (130-400)
[2023-09-05 08:41] LABS: ALT (SGPT) 22 U/L (0-35); AST (SGOT) 23 U/L (14-36); Albumin 4.2 g/dl (3.5-5.0); Alkaline Phosphatase 60 U/L (38-126); Blood Urea Nitrogen 20 mg/dl (7-17); Calcium 9.5 mg/dl (8.4-10.2); Carbon Dioxide 25 mmol/L (22-30); Chloride 105 mmol/L (98-107); Estimated Creatinine Clearance 81 ml/min; Glucose 111 mg/dl (70-99); Potassium 4.1 mmol/L (3.5-5.1); Sodium 137 mmol/L (135-145); Total Bilirubin 0.5 mg/dl (0.2-1.3); Total Protein 6.7 g/dl (6.3-8.2); eGFR > 60.00
--- NOTE | 2023-09-05 08:56 | W.PN.UPDATE ---
Update Note
- Progress Note Update
09/05/23 08:56
Patient seen in [facility] prior to treatment this am. Overall feeling well. Denies any complaints or concerns. Was admitted with neutropenic fever after first treatment due to probable sinusitis. Work up negative, but was admitted. Reports in
hospital using nystatin for thrush. No s/s of thrush in oral cavity upon exam. Rx sent electronically for nystatin rx and advised to use if develops thrush again, but also encouraged to call to advise if develops thrush for documentation. Overall
in good spirits. Thanked me for my time and has O[facility] contact info and Lena info for any further questions or concerns. Will continue with treatment R-CHOP #2 today.
[2023-09-05] MEDS: BENADRYL 50.5 MG IV (09:20)
[2023-09-05] MEDS: TYLENOL 1000 MG PO (09:21)
[2023-09-05] MEDS: RUXIENCE 200 MG IV (09:56)
[2023-09-05] MEDS: EMEND 150 MG IV (12:52)
[2023-09-05] MEDS: ALOXI 5 MG IV (13:31)
[2023-09-05] MEDS: DECADRON 51 MG IV (13:32)
[2023-09-05] MEDS: ADRIAMYCIN 26.75 MG IV ×2 (14:10)
[2023-09-05] MEDS: ONCOVIN 52 MG IV (14:26)
[2023-09-05] MEDS: CYCLOPHOSPHAMIDE 257.990000000000009 MG IV (14:46)
[2023-09-06 14:47] VITALS: BP 115/59
[2023-09-06] MEDS: NYVEPRIA 6 MG SC (14:51)
[2023-09-06 23:48] LABS: IgA 195 mg/dl (70-400); IgG 709 mg/dl (700-1600); IgM 49 mg/dl (40-230)
[2023-09-12 10:18] LABS: % Basophils 1.1 % (0-2); % Eosinophils 5.3 % (0-6); % Immature Granulocytes 0.6 % (0-0.5); % Lymphocytes 53.6 % (20.5-51.1); % Monocytes 4.5 % (1.7-9.3); % Neutrophils 34.9 % (42.2-75.2); Absolute Eosinophils 0.2 10^3/uL (0-0.7); Absolute Lymphocytes 1.9 10^3/uL (1.2-3.4); Absolute Monocytes 0.2 10^3/uL (0.1-0.6); Absolute Neutrophils 1.3 10^3/uL (1.4-6.5); Hematocrit 33.2 % (37.0-47.0); Hemoglobin 11.1 g/dL (12.0-16.0); Mean Corp Hgb Conc. 33.4 g/dL (33.0-37.0); Mean Corpuscular Hgb 30.6 pg (27.0-31.0); Mean Corpuscular Volume 91.5 fL (81.0-99.0); Mean Platelet Volume 9.2 fL (7.4-10.4); Platelet Count 261 10^3/uL (130-400); Red Blood Cell Count 3.63 10^6/uL (4.20-5.40); Red Cell Dist. Width 13.8 % (11.5-14.5); White Blood Cell Count 3.6 10^3/uL (4.8-10.8)
[2023-09-12 11:56] LABS: ALT (SGPT) 17 U/L (0-35); AST (SGOT) 17 U/L (14-36); Alkaline Phosphatase 79 U/L (38-126); Blood Urea Nitrogen 17 mg/dl (7-17); Calcium 8.9 mg/dl (8.4-10.2); Carbon Dioxide 27 mmol/L (22-30); Chloride 101 mmol/L (98-107); Estimated Creatinine Clearance 93 ml/min; Glucose 103 mg/dl (70-99); LDH 201 U/L (120-246); Potassium 3.8 mmol/L (3.5-5.1); Sodium 133 mmol/L (135-145); Total Bilirubin 0.8 mg/dl (0.2-1.3); Total Protein 6.3 g/dl (6.3-8.2); eGFR > 60.00
[2023-09-19 10:38] LABS: % Basophils 0.7 % (0-2); % Eosinophils 0.4 % (0-6); % Immature Granulocytes 3.9 % (0-0.5); % Lymphocytes 20.7 % (20.5-51.1); % Monocytes 7.5 % (1.7-9.3); % Neutrophils 66.8 % (42.2-75.2); Absolute Basophils 0.1 10^3/uL (0-0.2); Absolute Immature Granulocytes 0.4 10^3/uL (0-0.05); Absolute Lymphocytes 2.3 10^3/uL (1.2-3.4); Absolute Monocytes 0.8 10^3/uL (0.1-0.6); Absolute Neutrophils 7.3 10^3/uL (1.4-6.5); Hematocrit 33.1 % (37.0-47.0); Hemoglobin 11.1 g/dL (12.0-16.0); Mean Corp Hgb Conc. 33.5 g/dL (33.0-37.0); Mean Corpuscular Hgb 30.3 pg (27.0-31.0); Mean Corpuscular Volume 90.4 fL (81.0-99.0); Mean Platelet Volume 10.1 fL (7.4-10.4); Platelet Count 119 10^3/uL (130-400); Red Blood Cell Count 3.66 10^6/uL (4.20-5.40); Red Cell Dist. Width 14.2 % (11.5-14.5)
--- NOTE | 2023-09-20 15:10 | W.PN.UPDATE ---
Update Note
- Progress Note Update
09/20/23 215pm
Called patient who stated in hospital and asked to come to O[facility]. Seen in [facility] and evaluated. Left lower cheek swelling prominent and seen. Tender to touch. Right side not swollen. Reports with sinus pressure starting monday so started augmentin
monday evening. Sinus pressure improved, but does report worsening swelling to cheek as well as continued sinus pressure. After first treatment patient became neutropenia and febrile and was admitted for a few days. Reports same thing happened to
right cheek during this admission then resolved. Reviewed imaging and abscess did not appear to be seen on imaging, but did report small submental LN. On further imaging there were other abnormalities of the left side seen, but nothing on the
right. Patient afebrile with t 98.5. with her. Discussed with oncology provider who agreed with ER evaluation to rule out abscess or other concerning problem. She is reluctant to go, but does understand the importance of evaluation. She
will call back with further questions or concerns. Of note her last note from oncologist Dr. Mason did state to see ENT if sinus problems recur. Discussed this with patient. Will call to check in on patient tomorrow.
== END 2023-09-26 23:59 | disposition home or self-care (01) ==
LOC: OID 11:09
PROVIDERS: ATTENDING PHYSICIAN Internal Medicine Hematology & Oncology; PRIMARYCARE PHYSICIAN Family Medicine
DX: Z51.11 Encounter for antineoplastic chemotherapy (principal); C83.34 Diffuse large B-cell lymphoma, lymph nodes of axilla and upper limb
CPT/HCPCS: 36415; 80053; 82784; 83615; 84550; 85025; 96367; 96372; 96375; 96411; 96413; 96415; 96417; J1453; J2469; J9000; J9073; Q5119; Q5122

== ENCOUNTER 2023-09-22 09:59 | Inpatient (IN) | payer BC, SELFPAY ==
[2023-09-20 14:30] VITALS: BP 128/79
--- NOTE | 2023-09-20 15:10 | ED.GENMED ---
History of Present Illness
General
Chief Complaint: Facial Problem
Source: patient
Exam Limitations: none
Time Seen by Provider: 09/20/23 14:50
Travel History
Have you had any contact with someone who has COVID-19?: No
Do you have any symptoms of coronavirus? Fever > 100 degrees, chills, cough, shortness of breath, sore throat, loss of taste or smell, muscle aches, or headache?: No
History of Present Illness
History of Present Illness:
Patient is a 68 y/o female with PMH of B-cell lymphoma who presents to the ED complaining of left-sided jaw swelling. Patient was diagnosed with sinusitis on Monday and was prescribed Augmentin, she has taken 2 doses. She describes a similar episode
of sinusitis leading to right-sided jaw swelling and neutropenic fever about 4 weeks ago for which she was admitted to [facility]. She has had bilateral maxillary pain since Monday. Left-sided jaw swelling began this morning. She has taken
Tylenol and Advil with some pain relief. She denies pain with movement of the jaw, fever, chills, sweats, difficulty breathing, or another other acute symptoms. Her last chemotherapy treatment was 09/05/23. Her next treatment is 09/26/23.
Past History
Past History
ED Past Medical History: Cancer; Negative HTN, IDDM or NIDDM
Social History
Personal:
Living: with family
Review of Systems
Review of Systems
Constitutional: Reports no symptoms
EENT: Reports mouth swelling (left-sided jaw swelling)
Respiratory: Reports no symptoms
Cardiac: Reports no symptoms
ABD/GI: Reports no symptoms
: Reports no symptoms
Musculoskeletal: Reports no symptoms
Skin: Reports no symptoms
Neurological: Reports no symptoms
Endocrine: Reports no symptoms
Hematologic/Lymphatic: Reports no symptoms
Phy Exam
General Physical Exam
General Presentation: well appearing
General age: appears stated age
General Skin: warm
General Habitus: normal
General Mental: alert
General Hydration: appears well hydrated
ENT Exam
ENT Exam: neck supple and swallowing well
Additional ENT: s
Course
Vital Signs
Initial and Last Documented VS:
Initial Vital Signs
Pulse Resp BP Pulse Ox
110 20 128/79 96
09/20/23 14:30 09/20/23 14:30 09/20/23 14:30 09/20/23 14:30
Last Documented Vital Signs
Pulse Resp BP Pulse Ox
110 20 128/79 96
09/20/23 14:30 09/20/23 14:30 09/20/23 14:30 09/20/23 14:30
ED Attending Note
-
Portions of this chart may have been created with voice recognition software.� Occasional wrong word or��sound alike� substitutions may have occurred due to the inherent limitations of voice recognition software.
Discharge Plan
Departure
Prescriptions:
No Action
fluoxetine 40 mg Capsule
40 mg PO DAILY
metformin 500 mg Tablet
500 mg PO BID
pantoprazole 40 mg Tablet,Delayed Release (Dr/Ec)
40 mg PO DAILY
lisinopril 10 mg Tablet
10 mg PO DAILY
levothyroxine [Synthroid] 150 mcg Tablet
125 mcg PO DAILY
metoprolol succinate 25 mg Tablet Extended Release 24 Hr
25 mg PO DAILY
loratadine 10 mg Tablet
10 mg PO DAILY
rosuvastatin 10 mg Tablet
20 mg PO DAILY
fenofibrate 160 mg Tablet
160 mg PO DAILY
calcium carbonate-vitamin D3 [Calcium 500 + D] 500 mg-10 mcg (400 unit) Tablet
1 tab PO DAILY
ondansetron HCl 8 mg Tablet
8 mg PO Q8HPRN PRN (Reason: nausea)
prochlorperazine maleate [Compazine] 10 mg Tablet
10 mg PO Q6H PRN (Reason: nausea)
amoxicillin-pot clavulanate [Augmentin] 875-125 mg Tablet
1 tab PO DAILY
nystatin 100,000 unit/mL Suspension
500,000 unit PO Q6 14 Days Qty: 300 0RF
Rx Instructions:
administer 1/2 of dose in each side of the mouth
loperamide 2 mg Tablet
2 mg PO Q4HPRN PRN (Reason: diarrhea )
allopurinol 300 mg Tablet
300 mg PO DAILY
acetaminophen 325 mg Tablet
650 mg PO Q4HPRN PRN (Reason: mild pain/ fever>100.5F) Qty: 0 0RF
Referrals:
Raúl Del Castillo DO [Family Provider] -
Interventions
Interventions:
*ED COVID-19 Vaccine History Last Done: 09/20/23 14:30
Discharge Date and Time
Print Language: DIVEHI
[2023-09-20 16:04] VITALS: BMI 46.8
[2023-09-20 16:07] VITALS: BP 149/83
[2023-09-20] MEDS: TYLENOL 650 MG PO (16:12)
[2023-09-20 16:19] LABS: % Basophils 0.8 % (0-2); % Eosinophils 0.3 % (0-6); % Immature Granulocytes 1.6 % (0-0.5); % Lymphocytes 15.3 % (20.5-51.1); % Monocytes 5.6 % (1.7-9.3); % Neutrophils 76.4 % (42.2-75.2); Absolute Basophils 0.1 10^3/uL (0-0.2); Absolute Immature Granulocytes 0.2 10^3/uL (0-0.05); Absolute Monocytes 0.7 10^3/uL (0.1-0.6); Hematocrit 33.1 % (37.0-47.0); Mean Corp Hgb Conc. 33.2 g/dL (33.0-37.0); Mean Corpuscular Hgb 30.1 pg (27.0-31.0); Mean Corpuscular Volume 90.7 fL (81.0-99.0); Nucleated Red Blood Cells % 0.2 %; Platelet Count 142 10^3/uL (130-400); Red Blood Cell Count 3.65 10^6/uL (4.20-5.40); Red Cell Dist. Width 14.5 % (11.5-14.5); White Blood Cell Count 13.1 10^3/uL (4.8-10.8)
[2023-09-20 16:33] LABS: ALT (SGPT) 16 U/L (0-35); AST (SGOT) 21 U/L (14-36); Albumin 4.3 g/dl (3.5-5.0); Alkaline Phosphatase 74 U/L (38-126); Blood Urea Nitrogen 20 mg/dl (7-17); Calcium 9.8 mg/dl (8.4-10.2); Carbon Dioxide 24 mmol/L (22-30); Chloride 104 mmol/L (98-107); Estimated Creatinine Clearance 93 ml/min; Glucose 98 mg/dl (70-99); Sodium 136 mmol/L (135-145); Total Bilirubin 0.6 mg/dl (0.2-1.3); Total Protein 6.7 g/dl (6.3-8.2); eGFR > 60.00
[2023-09-20] MEDS: MAXIPIME 1000 MG IV (18:21)
--- NOTE | 2023-09-20 18:40 | HPS.HSE ---
Family Physician
-
Family Physician: Raúl Del Castillo DO
Chief Complaint
-
Left-sided facial swelling sinus pressure
History of Present Illness
68-year-old female reports left side sinus pressure that started on Monday 2 days ago was started on Augmentin Monday evening. She reports improvement of sinus pressure but worsening of swelling to the lower mandible and lower left side of neck.
She had similar episode of right-sided jaw swelling with neutropenic fever 4 weeks ago for which she was admitted to [facility]. Blood work and all cultures were negative at that time she was not discharged on any antibiotics this was
discussed with her oncologist per records last admission. Her last chemo was on 09/05/2023 with next one being due 09/25. She denies fever, chills, chest pain, palpitations, shortness breath, cough, abdominal pain, nausea, vomit, diarrhea, urinary
symptoms. The patient has history of diffuse large B-cell lymphoma on chemotherapy, HTN, HLD, DM2, depression, thyroid cancer status post thyroidectomy, breast cancer status post left mastectomy, depression, gout
Medical History
Past Medical History
Past Medical History: Reports Other
Additional Past Medical History:
Sepsis with neutropenia, right side facial swelling July 2023
Diabetes Mellitus, Type II
Essential Hypertension
Hyperlipidemia
Depression
Diffuse Large B-Cell Lymphoma
Thyroid CA s/p Thyroidectomy
Breast Cancer s/p Left Mastectomy
Past Surgical History: Reports Other
Additional Past Surgical History:
Thyroidectomy
Left Mastectomy
Social History
Tobacco: Non-smoker
Alcohol: Occasional (Patient reports none for the last month)
Drug: None
Personal:
Living: With Family
Employment: Retired
Family History
Family History: Not pertinent
Allergies / Home Medications
Allergies reflects when Allergies were last updated in [employer].
Home Medications with original date entered in [employer]
Allergy/Medication List:
Allergies
Allergy/AdvReac Type Severity Reaction Status Date / Time
No Known Allergies Allergy Unverified 09/20/23 14:32
Home Medications
calcium carbonate 500 mg-vitamin D3 10 mcg (400 unit) tablet (Calcium 500 + D) 1 tab PO DAILY Supplement 12/06/22
fenofibrate 160 mg tablet 160 mg PO DAILY High Cholesterol 12/06/22
fluoxetine 40 mg capsule 40 mg PO DAILY depression/anxiety 12/06/22
lisinopril 10 mg tablet 10 mg PO DAILY blood pressure 12/06/22
loratadine 10 mg tablet 10 mg PO DAILY allergies 12/06/22
metformin 500 mg tablet 500 mg PO BID diabetes 12/06/22
metoprolol succinate 25 mg tablet,extended release 24 hr 25 mg PO DAILY Blood Pressure 12/06/22
pantoprazole 40 mg tablet,delayed release 40 mg PO DAILY Gastrointestinal Issue 12/06/22
rosuvastatin 10 mg tablet 20 mg PO DAILY High Cholesterol 12/06/22
ondansetron HCl 8 mg tablet 8 mg PO Q8HPRN PRN nausea/vomiting 08/15/23
prochlorperazine maleate 10 mg tablet (Compazine) 10 mg PO Q6H PRN nausea/vomiting 08/15/23
allopurinol 300 mg tablet 300 mg PO DAILY gout 08/23/23
loperamide 2 mg tablet 2 mg PO Q4HPRN PRN diarrhea 08/23/23
acetaminophen 325 mg tablet 650 mg (2 x 325 mg) PO Q4HPRN PRN mild pain/ fever>100.5F #0 tabs 08/25/23
amoxicillin 875 mg-potassium clavulanate 125 mg tablet 1 tab PO BID 09/05/23
levothyroxine 125 mcg tablet 125 mcg PO DAILY 09/20/23
nystatin 100,000 unit/mL oral suspension 500,000 unit PO Q6 PRN thrush from chemo 09/20/23
Review of Systems
-
History Source: Patient and Family ( at bedside)
A 12 point ROS was completed and negative except as noted: Yes
Constitutional: Denies Fever, Fatigue or Chills
EENT: Reports Other (Left-sided mandibular swelling/left anterior neck swelling, left-sided maxillary sinus tenderness)
Respiratory: Denies Cough or Trouble Breathing
Cardiac: Denies Chest Pain, Diaphoresis, Palpitations or Syncope
Abdomen/GI: Denies Abdominal Pain, Nausea, Vomiting, Diarrhea, Constipated, Bloody Stools or Black Stools
: Denies Dysuria, Frequency, Flank Pain, Incontinence, Difficulty Voiding or Urgency
Musculoskeletal: Denies Joint Pain or Edema
Skin: Denies Itching or Rash
Neurological: Denies Dizzy, Headache or Weakness
Endocrine: Reports No Symptoms
Hematologic/Lymphatic: Reports No Symptoms
Psych: Reports Calm
Physical Exam
Vital Signs
Vital Signs
Pulse Resp BP Pulse Ox
92 18 149/83 95
09/20/23 16:07 09/20/23 16:07 09/20/23 16:07 09/20/23 16:07
Physical Exam
General: Conversant; No Fever or Chills
HEENT: NormoCephalic, Anicteric, Moist mucous membranes, PERRLA, [place] Conjunctivae, No Ptosis and Other (Left-sided mandibular swelling into left anterior neck swelling, sinus point tenderness left maxilla no erythema appreciated)
Respiratory: Clear; No Wheezes, Rales or Rhonchi
Cardiac: S1/S2 and Regular Rhythm; No Murmur, Rub, Gallop or Peripheral Edema
Breast: Deferred by me
GI: Soft, Non Tender, Non Distended, Normal Bowel Sounds and No Hepatosplenomegaly
Rectal: Deferred by Provider
Genito-urinary: Deferred by me
Musculoskeletal: No Clubbing, No Cyanosis and No Edema
Skin: Warm, Dry and Other; No Rash or Jaundice
Neuro: AO x 3, No Motor Deficits, Nonfocal/grossly intact, Cranial Nerves Intact and No Sensory Deficits; No Slurred Speech, Facial Droop or Tremors
Psych: Calm
Laboratory Results
-
09/20/23 16:02
09/20/23 16:02
Laboratory Results
Total Bilirubin 0.6 mg/dl (0.2-1.3) 09/20/23 16:02
AST 21 U/L (14-36) 09/20/23 16:02
ALT 16 U/L (0-35) 09/20/23 16:02
Alkaline Phosphatase 74 U/L (38-126) 09/20/23 16:02
Data Reviewed
-
Ultrasound: Report Reviewed by me
Lab Data: Labs Reviewed by me
Impression/Plan
-
Impression/plan:
Admit to [facility]
#Left facial cellulitis/chronic sinusitis
#Recent sepsis with right sided facial swelling with neutropenic fever 08/22 - 08/25/2023(labs blood cultures were negative patient was not discharged on any antibiotics)
Started Augmentin 2 days ago
WBC 13.1 with left shift, HR 92, 149/83
-Continue loratadine 10 mg daily
- Consult ENT
-Continue IV vancomycin, IV cefepime
-Follow CBC, CMP
#Diffuse large B-cell lymphoma history of pancytopenia
On chemo-first chemo August 16, 2023 also given Neulasta at that time, second chemo 09/05/2023 with Neulasta, third chemo due 09/26/2023
Follows with oncology
-Takes Zofran as needed, Compazine as needed nausea vomiting
#Thyroid cancer status post thyroidectomy
-Continue levothyroxine 125 mcg daily
Thyroid ultrasound: Subcutaneous edema of the left jaw and left lower cheek regions no drainable fluid collection or mass no cervical lymphadenopathy
#DM2
-Accu-Cheks with SSI
-Continue metformin 5 mg twice daily
#HTN�benign
BP stable
-Continue metoprolol succinate 25 mg daily, lisinopril 10 mg daily with hold parameters
#HLD
-Continue fenofibrate 160 mg daily, Crestor 20 mg daily
#GERD
-Continue Protonix 40 mg daily
#Breast cancer status post left mastectomy
#Depression
-Continue fluoxetine 40 mg daily
#Gout
-Continue allopurinol 300 mg daily
DVT prophylaxis
Subcu Lovenox
Full code
[2023-09-20] MEDS: VANCOCIN 540 MG IV (18:56)
[2023-09-20 19:00] VITALS: BP 130/78
[2023-09-20] MEDS: PERCOCET 5/325 1 TABLET PO (19:24)
--- NOTE | 2023-09-20 20:10 | W.PN.UPDATE ---
Update Note
Progress Note Update
This note serves as an addendum to the H&P by Mary Singh on 09/20/23.
68-year-old female with past medical history of diffuse large B-cell lymphoma on chemotherapy, HTN, HLD, DM2, depression, thyroid cancer status post thyroidectomy, breast cancer status post left mastectomy, depression and gout presented with left
lower and left jaw area facial swelling which started about 2 days ago. She reports associated pain. Patient says her last chemotherapy was on 09/05/23. She denied any fever, chills or any other symptoms or systemic symptoms.
Vital Signs
Afebrile
Blood pressure okay
RR okay
Oxygen saturation 90s on room air
Physical Exam
General: Conversant; No Fever or Chills
HEENT: Normocephalic, Anicteric, Moist mucous membranes, PERRLA, [place] Conjunctivae, No Ptosis and Other (Left-sided mandibular swelling into left anterior neck swelling -- soft on the left face, more indurate in the submandibular area, sinus point
tenderness left maxilla no erythema appreciated)
Respiratory: Clear; No Wheezes, Rales or Rhonchi
Cardiac: S1/S2 and Regular Rhythm
GI: Soft, Non Tender, Non Distended, Normal Bowel Sounds
Musculoskeletal: No Cyanosis and No Edema
Skin: Warm, Dry
Neuro: AO x 3, No Motor Deficits, Nonfocal/grossly intact, Cranial Nerves Intact and No Sensory Deficits
Psych: Calm
Assessment/Plan
#Left facial cellulitis/chronic sinusitis
#Recent sepsis with neutropenic fever, thrush right sided facial swelling with neutropenic fever 08/22 - 08/25/2023 (labs blood cultures were negative patient was not discharged on any antibiotics)
-Was started on outpatient Augmentin without any improvement
-Continue loratadine 10 mg daily
-Consulted ENT, recommendations appreciated: check facial bones with contrast CT
-Continue IV vancomycin, IV cefepime
-Follow CBC, CMP
#Diffuse large B-cell lymphoma history of pancytopenia
On chemo-first chemo August 16, 2023 also given Neulasta at that time, second chemo 09/05/2023 with Neulasta, third chemo due 09/26/2023
-Follows with oncology
-Takes Zofran as needed, Compazine as needed nausea vomiting
#Thyroid cancer status post thyroidectomy
-Continue levothyroxine 125 mcg daily
Thyroid ultrasound: Subcutaneous edema of the left jaw and left lower cheek regions no drainable fluid collection or mass no cervical lymphadenopathy
#DM2
-Accu-Cheks with SSI
-Continue metformin 5 mg twice daily
#HTN
BP stable
-Continue metoprolol succinate 25 mg daily, lisinopril 10 mg daily with hold parameters
#HLD
-Continue fenofibrate 160 mg daily, Crestor 20 mg daily
#GERD
-Continue Protonix 40 mg daily
#History of breast cancer status post left mastectomy
#Depression
-Continue fluoxetine 40 mg daily
#Gout
-Continue allopurinol 300 mg daily
DVT prophylaxis
Subcu Lovenox
Full code
[2023-09-20 20:13] VITALS: BP 135/85; BMI 46.8
[2023-09-20] MEDS: GLUCOPHAGE 500 MG PO (20:40)
--- NOTE | 2023-09-20 20:40 | PHA.VAN.IN ---
Assessment
- Assessment
Renal Function: Appears similar to baseline
Concomitant Antimicrobials: CEFEPIME
- Previous Dosing Experience
Previous Regimen: 1250MG IV Q12H
Date of Regimen: 08/24/23
Provided Trough of: 11.5 PREDICTED
Provided AUC of: 478 PREDICTED
Patient's SCR is: Similar to previous dosing experience (08/24/23 SCR = 0.6)
Patient's weight is: Decreased compared to previous dosing experience (08/24/23 WT = 117.5 KG)
AUC Dosing Plan
- Dosing Variables
Dosing Weight (kg): 115.9
Dosing CrCl (ml/min): 93
Vd coefficient (L/kg): 0.5
- Empiric Dosing
Initial / Loading Dose: 2GM
Maintenance Regimen: 1250MG IV Q12H
Estimated AUC (mcg*h/mL): 561
Estimated Peak (mcg*h/mL): 34.5
Estimated Trough (mcg/ml): 14.7
Estimated Half Life (H): 8.5
Pharmacokinetics Vancomycin I
- -
Patient Age: 68
Patient Sex: Female
Vancomycin Day #: 1
Indication: Eye Or Ent Infection (FACIAL CELLULITIS/CHRONIC SINUSITIS)
Requesting Provider: MICKIE
Height / Weight:
Height 5 ft 2 in
Actual Weight 115.938 kg
Pertinent Past Medical History: B-CELL LYMPHOMA;DM2;RECENT SEPSIS/NEUTROPENIA
- Vital Signs / Lab Results
Temp Pulse Resp BP Pulse Ox
97.6 F 109 18 135/85 96
09/20/23 20:13 09/20/23 20:13 09/20/23 20:13 09/20/23 20:13 09/20/23 20:13
Lab Results - Hematology
09/20/23
16:02
WBC 13.1 H
Lab Results - Chemistry
04/24/24
16:02
BUN 20 H
Creatinine 0.7
Estimated Creat Clear 93
Albumin 4.3
[2023-09-20 21:54] LABS: Glucose - Point of Care 113 mg/dl (70-99)
[2023-09-20 23:02] VITALS: BP 124/74
[2023-09-20] MEDS: PERCOCET 5/325 2 TABLET PO (23:43)
[2023-09-21] MEDS: MAXIPIME 2000 MG IV ×2 (02:27→10:18)
[2023-09-21] MEDS: STERILE WATER FOR INJECTION 10 ML IV ×2 (02:27→10:20)
[2023-09-21] MEDS: SYNTHROID 125 MCG PO (05:41)
[2023-09-21] MEDS: VANCOCIN 275 MG IV (05:41)
[2023-09-21 07:24] VITALS: BP 138/74
[2023-09-21 07:59] LABS: ALT (SGPT) 14 U/L (0-35); AST (SGOT) 17 U/L (14-36); Albumin 3.8 g/dl (3.5-5.0); Alkaline Phosphatase 69 U/L (38-126); Blood Urea Nitrogen 19 mg/dl (7-17); Calcium 9.1 mg/dl (8.4-10.2); Carbon Dioxide 26 mmol/L (22-30); Chloride 106 mmol/L (98-107); Estimated Creatinine Clearance 93 ml/min; Glucose 111 mg/dl (70-99); Potassium 4.1 mmol/L (3.5-5.1); Sodium 135 mmol/L (135-145); Total Bilirubin 0.4 mg/dl (0.2-1.3); Total Protein 6.3 g/dl (6.3-8.2); eGFR > 60.00
[2023-09-21 08:16] LABS: % Eosinophils 0.4 % (0-6); % Immature Granulocytes 1.9 % (0-0.5); % Lymphocytes 18.3 % (20.5-51.1); % Monocytes 7.7 % (1.7-9.3); % Neutrophils 70.7 % (42.2-75.2); Absolute Basophils 0.1 10^3/uL (0-0.2); Absolute Immature Granulocytes 0.2 10^3/uL (0-0.05); Absolute Lymphocytes 1.4 10^3/uL (1.2-3.4); Absolute Monocytes 0.6 10^3/uL (0.1-0.6); Absolute Neutrophils 5.6 10^3/uL (1.4-6.5); Hematocrit 30.8 % (37.0-47.0); Hemoglobin 10.3 g/dL (12.0-16.0); Mean Corp Hgb Conc. 33.4 g/dL (33.0-37.0); Mean Corpuscular Hgb 30.6 pg (27.0-31.0); Mean Corpuscular Volume 91.4 fL (81.0-99.0); Mean Platelet Volume 10.1 fL (7.4-10.4); Nucleated Red Blood Cells % 0.3 %; Platelet Count 146 10^3/uL (130-400); Red Blood Cell Count 3.37 10^6/uL (4.20-5.40); Red Cell Dist. Width 14.8 % (11.5-14.5); White Blood Cell Count 7.9 10^3/uL (4.8-10.8)
--- NOTE | 2023-09-21 08:17 | PHA.VAN.FU ---
Vancomycin Assessment / Plan
- Assessment
Renal Function: Stable
In the past 24 hrs, patient has been: Afebrile
Concomitant Antimicrobials: cefepime
- Dosing Plan
Continue: Vanc 1250mg Q12H
- Monitoring Plan
No level(s) ordered at this time: consider levels in next few days
- Follow Up
Pharmacy will continue to follow.
Vancomycin Follow UP
- -
Patient Age: 68
Patient Sex: Female
Vancomycin Day #: 2
Indication: Eye Or Ent Infection
Requesting Provider: Millie Singh
Pertinent Antimicrobial Allergies:
NKDA
Height / Weight:
Height 5 ft 2 in
Actual Weight 115.938 kg
Pertinent Past Medical History: BMI ~47, large B-cell lymmphoma, DM2
- Vital Signs / Lab Results
Temp Pulse Resp BP Pulse Ox
99.8 F 100 16 138/74 95
09/21/23 07:24 09/21/23 07:24 09/21/23 07:24 09/21/23 07:24 09/21/23 07:24
Lab Results - Hematology
09/20/23
16:02
WBC 13.1 H
Lab Results - Chemistry
09/20/23 09/21/23
16:02 07:06
BUN 20 H 19 H
Creatinine 0.7 0.7
Estimated Creat Clear 93 93
Albumin 4.3 3.8
[2023-09-21 08:43] LABS: Glucose - Point of Care 129 mg/dl (70-99)
[2023-09-21] MEDS: CRESTOR 20 MG PO (08:43)
[2023-09-21] MEDS: GLUCOPHAGE 500 MG PO ×2 (08:43→16:59)
[2023-09-21] MEDS: ZYLOPRIM 300 MG PO (08:43)
[2023-09-21] MEDS: TRICOR 145 MG PO (08:44)
[2023-09-21] MEDS: PROTONIX 40 MG PO (08:44)
[2023-09-21] MEDS: CLARITIN 10 MG PO (08:44)
[2023-09-21] MEDS: PROZAC 40 MG PO (08:44)
[2023-09-21] MEDS: OSCAL 500 + D 500 MG PO (08:44)
[2023-09-21] MEDS: TOPROL XL 25 MG PO (08:44)
[2023-09-21] MEDS: ZESTRIL 10 MG PO (08:44)
[2023-09-21] MEDS: TYLENOL 650 MG PO ×2 (08:51→16:59)
--- NOTE | 2023-09-21 10:03 | PTOTSP ---
Patient demonstrates good insight into safety with mobility and ambulation without use of AD. Demonstrates independence with mobility and no need for skilled therapy at this time. Will discharge from caseload. If needs change, please re-consult.
[2023-09-21] MEDS: FLUSH (NSS) 2 FLUSH IV (10:19)
[2023-09-21 11:42] LABS: Glucose - Point of Care 100 mg/dl (70-99)
--- NOTE | 2023-09-21 12:11 | CON.MD ---
Consultation - Medical
-
dictated.
Facial cellulitis, twice, following chemo.
She has allergies and chronic headaches but definitively does not have sinusitis.
Feels a little better today on broad-spectrum abx.
Should see Dentist again prior to next round of chemo.
Continue washing face daily with soap/water.
Consider re-consulting ID.
May benefit from prophylactic abx with next round of chemo.
Call us if we can be of further assistance.
--- NOTE | 2023-09-21 12:40 | CON.ID ---
Consultation
-
Date/Time Consultation Requested: 09/20/20232022
Date/Time Consultation Performed: 09/21/2023 12:16
Requesting Provider: Dr. Read
Performing Provider: Dr. Ward
Reason for Consultation: Left facial cellulitis
Chief Complaint / Past History
History of Present Illness
Radha Champion is a 68-year-old female being evaluated at the request of Dr. Read regarding left facial cellulitis. History is obtained from chart review, along with patient interview.
The patient has a significant past medical history of diffuse large B-cell lymphoma, and recently began chemotherapy with R-CHOP. She presented to the hospital in late July with fevers, and she was seen by ID for neutropenia. At that time, she
had noted some right facial discomfort, which quickly improved.
She received her second dose of R-CHOP on 09/04 and did well in the immediate post infusion timeframe. She reports that approximately 2 days ago she began to have left facial and cheek discomfort, with subsequent swelling of her left lower mandibular
area skin. She denied any overt jaw pain, but noted tenderness with palpation. She denied any difficulty with opening her jaw. She denies any fevers or chills. She denies any cough or congestion. She has been started on empiric antibiotics, and
Infectious Diseases is asked to further direct antimicrobial management.
Past History
Additional Past Medical History:
Diffuse large B-cell lymphoma (recently initiated chemotherapy)
Breast cancer (DCIS)
Thyroid cancer
DM
HTN
Additional Past Surgical History:
Lumpectomy/mastectomy
Thyroid surgery
Modified neck dissection
Breast implants
Port-A-Cath placement
Allergy History:
No Known Allergies Allergy (Unverified 09/20/23 14:32)
Medications Reviewed: Yes
Current Antibiotics:
Vancomycin
Cefepime 2 g IV every 8 hours
Social History
Tobacco: Non-Smoker
Alcohol: Occasional
Drug: None
Personal:
Living: With Family
Employment: Retired
Family History
Family History: Not Pertinent
Review of Systems
Vital Signs
Temp Pulse Resp BP Pulse Ox
99.8 F 100 16 138/74 95
09/21/23 07:24 09/21/23 08:44 09/21/23 07:24 09/21/23 08:44 09/21/23 08:00
Physical Exam
Physical Exam
Constitutional: No Acute Distress, Comfortable and Non-toxic
Head: Normocephalic
Eyes: Pupils Equal, Pupils Round, No Conjunctival Hemorrhage and Sclera Anicteric
Oral: Other (Left lower mandibular swelling/induration noted. No fluctuance appreciated.)
Cardiovascular: Regular Rate and S1/S2; Negative S3/S4
Pulmonary: Clear and Non Labored
Gastrointestinal: Soft, Non Tender and Non Distended
Extremities: Edema (race); Negative Cyanosis or Erythema
Neurological: Awake and Alert
Psychological: Calm
Lab / Diagnostic Study Results
09/21/23 07:06
09/21/23 07:06
Abs Immat Gran (auto) 0.2 10^3/uL (0-0.05) H 09/21/23 07:06
Absolute Neuts (auto) 5.6 10^3/uL (1.4-6.5) 09/21/23 07:06
Absolute Lymphs (auto) 1.4 10^3/uL (1.2-3.4) 09/21/23 07:06
Absolute Monos (auto) 0.6 10^3/uL (0.1-0.6) 09/21/23 07:06
Absolute Basos (auto) 0.1 10^3/uL (0-0.2) 09/21/23 07:06
Immature Gran % 1.9 % (0-0.5) H 09/21/23 07:06
Neutrophils % 70.7 % (42.2-75.2) 09/21/23 07:06
Lymphocytes % 18.3 % (20.5-51.1) L 09/21/23 07:06
Monocytes % 7.7 % (1.7-9.3) 09/21/23 07:06
Eosinophils % 0.4 % (0-6) 09/21/23 07:06
Basophils % 1.0 % (0-2) 09/21/23 07:06
Microbiology Results
Micro:
09/20/23 20:50 Blood Culture - Pending
Blood/Venous
09/20/23 20:15 Blood Culture - Pending
Blood/Venous
Imaging:
09/21/2023 CT facial bones with contrast: Left facial soft tissue swelling. No soft tissue abscess. No radiographic evidence of mandibular osteomyelitis. Limited visualization and evaluation of the teeth secondary to metallic artifact from dental
fillings. The paranasal sinuses are clear. No evidence of sinusitis.
Assessment / Plan
Left mandibular swelling; suspect otologic infection
Suspected left facial cellulitis
Leukocytosis
Diffuse large B-cell lymphoma (second round of R-CHOP 09/05/2023)
Breast cancer (DCIS)
Thyroid cancer
DM
HTN
Recommendations:
Transition antibiotic therapy to Unasyn 3 g IV every 6 hours
Follow for clinical improvement
[2023-09-21] MEDS: UNASYN IV ×2 (13:32→19:42)
--- NOTE | 2023-09-21 13:45 | CON.ONC ---
Impression
Impression
Left facial cellulitis
Diffuse�large�B�cell�lymphoma�stage 1 by PET, BMBx negative - s/p C2 RCHOP 09/04 with GCSF 09/05
Hx�thyroid�cancer�s/p�radioactive�iodine�and�external�beam�radiation
Hx�DCIS�s/p�L�mastectomy
Plan
Plan
Dental evaluation recommended by ENT
agree with IV abx -ID following
antiemetics prn
CBC daily
Patient History
History of Present Illness
68 yo F presented with left sinus pressure. She tells me that sinus pressure started 09/17 which slightly improved after starting Augmentin, however, she then noted worsening swelling of the left neck and lower mandible which prompted her to come to
the ER for evaluation. She denies fever, chills, chest pain, palpitations, shortness breath, cough, abdominal pain, nausea, vomit, diarrhea, urinary symptoms. She completed cycle 2 RCHOP w GCSF 09/04. Recall cycle 1 was c/b neutropenic fever with
sinus/facial congestion and pain that was treated with a course of antibiotics, however, infectious work up was negative.
Past-Medical/Surgical History
Past�Medical�History Papillary�Thyroid�Cancer�s/p�thyroidectomy,�radioactive�iodine�x�3,�and�XRT�to�b/l�neck Breast�Cancer���DCIS Glucose�intolerance,�on�metformin Hypertension Hyperlipidemia
Surgical�History Left�mastectomy�&�reconstruction,�Thyroidectomy,�Radical�Neck�Dissection�(lymph�node),�Right�breast�reduction.
Social�History Never smoker.. Social�use�of�alcohol. Retired. Lives with
Family�Onc History Bladder�Cancer���Father�
Patient Medication
�Medication �Instructions �Recorded �Confirmed �Last Taken �Type
calcium carbonate 500 mg-vitamin 1 tab PO DAILY Supplement 12/06/22 09/20/23 09/19/23 History
D3 10 mcg (400 unit) tablet
(Calcium 500 + D)
fenofibrate 160 mg tablet 160 mg PO DAILY High Cholesterol 12/06/22 09/20/23 09/19/23 History
fluoxetine 40 mg capsule 40 mg PO DAILY depression/anxiety 12/06/22 09/20/23 09/19/23 History
lisinopril 10 mg tablet 10 mg PO DAILY blood pressure 12/06/22 09/20/23 09/19/23 History
loratadine 10 mg tablet 10 mg PO DAILY allergies 12/06/22 09/20/23 09/19/23 History
metformin 500 mg tablet 500 mg PO BID diabetes 12/06/22 09/20/23 09/19/23 History
metoprolol succinate 25 mg 25 mg PO DAILY Blood Pressure 12/06/22 09/20/23 09/19/23 History
tablet,extended release 24 hr
pantoprazole 40 mg tablet,delayed 40 mg PO DAILY Gastrointestinal 12/06/22 09/20/23 09/19/23 History
release Issue
rosuvastatin 10 mg tablet 20 mg PO DAILY High Cholesterol 12/06/22 09/20/23 09/19/23 History
ondansetron HCl 8 mg tablet 8 mg PO Q8HPRN PRN nausea/vomiting 08/15/23 09/20/23 08/22/23 History
prochlorperazine maleate 10 mg 10 mg PO Q6H PRN nausea/vomiting 08/15/23 09/20/23 09/06/23 History
tablet (Compazine)
allopurinol 300 mg tablet 300 mg PO DAILY gout 08/23/23 09/20/23 09/19/23 History
loperamide 2 mg tablet 2 mg PO Q4HPRN PRN diarrhea 08/23/23 09/20/23 08/20/23 History
acetaminophen 325 mg tablet 650 mg (2 x 325 mg) PO Q4HPRN PRN 08/25/23 09/20/23 09/06/23 Rx
mild pain/ fever>100.5F #0 tabs
amoxicillin 875 mg-potassium 1 tab PO BID Infection 09/05/23 09/20/23 09/20/23 10:30 History
clavulanate 125 mg tablet
levothyroxine 125 mcg tablet 125 mcg PO DAILY Thyroid 09/20/23 09/20/23 09/19/23 History
nystatin 100,000 unit/mL oral 500,000 unit PO Q6 PRN thrush from 09/20/23 09/20/23 Unknown History
suspension chemo
Active Medications
Generic Name Dose Route Start Last Admin
Trade Name Freq PRN Reason Stop Dose Admin
Acetaminophen 650 mg 09/20/23 19:51 09/21/23 08:51
Acetaminophen 325 Mg Tablet PO 10/18/23 19:50 650 mg
Q4HPRN PRN Administration
mild pain/MINAYA/temp> 100.4F
Allopurinol 300 mg 09/21/23 08:00 09/21/23 08:43
Allopurinol 300 Mg Tablet PO 10/19/23 07:59 300 mg
DAILY FRANC Administration
Calcium/Vitamin D 500 mg 09/21/23 08:00 09/21/23 08:44
Calcium Carbonate 500 Mg/Vitamin D 5 Mcg (200 Units) Tablet PO 10/19/23 07:59 500 mg
DAILY FRANC Administration
Dextrose 12.5 grams 09/20/23 19:51
Dextrose 50% (0.5 Grams/Ml) 50 Ml Syringe IV 10/18/23 19:50
[id number] PRN
hypoglycemia
Protocol
Enoxaparin Sodium 40 mg 09/21/23 18:00
Enoxaparin Sodium 40 Mg/0.4 Ml Syringe SC 10/19/23 17:59
QPM FRANC
Fenofibrate 145 mg 09/21/23 08:00 09/21/23 08:44
Fenofibrate 145 Mg Tablet PO 10/19/23 07:59 145 mg
DAILY FRANC Administration
Fluoxetine HCl 40 mg 09/21/23 08:00 09/21/23 08:44
Fluoxetine 20 Mg Capsule PO 10/19/23 07:59 40 mg
DAILY FRANC Administration
Glucagon 1 mg 09/20/23 19:51
Glucagon 1 Mg Vial IM 10/18/23 19:50
PRN PRN
hypoglycemia
Protocol
Ampicillin Sodium/Sulbactam 120 mls @ 240 mls/hr 09/21/23 14:00 09/21/23 13:32
Sodium 3 gm/ Sodium Chloride IV 120 mls
Q6H FRANC Administration
Insulin Aspart 0 units 09/21/23 07:30 09/21/23 11:45
Insulin Aspart Low Resistance 300 Units/3 Ml Pen.Injctr SC 10/19/23 07:29 Not Given
AC FRANC
Protocol
Levothyroxine Sodium 125 mcg 09/21/23 06:00 09/21/23 05:41
Levothyroxine 125 Mcg Tablet PO 10/19/23 05:59 125 mcg
DAILY @ 0600 FRANC Administration
Lisinopril 10 mg 09/21/23 08:00 09/21/23 08:44
Lisinopril 10 Mg Tablet PO 10/19/23 07:59 10 mg
DAILY FRANC Administration
Loperamide HCl 2 mg 09/20/23 20:07
Loperamide 2 Mg Capsule PO 10/18/23 20:06
Q4HPRN PRN
diarrhea
Loratadine 10 mg 09/21/23 08:00 09/21/23 08:44
Loratadine 10 Mg Tablet PO 10/19/23 07:59 10 mg
DAILY FRANC Administration
Metformin HCl 500 mg 09/20/23 20:00 09/21/23 08:43
Metformin 500 Mg Regular Release Tablet PO 10/18/23 19:59 500 mg
BID AT 0800,1700 FRANC Administration
Metoprolol Succinate 25 mg 09/21/23 08:00 09/21/23 08:44
Metoprolol 25 Mg Extended Release Tablet PO 10/19/23 07:59 25 mg
DAILY FRANC Administration
Oxycodone/Acetaminophen 1 tablet 09/20/23 19:11 09/20/23 19:24
Oxycodone 5 Mg/Apap 325 Mg (Percocet) PO 10/04/23 19:10 1 tablet
Q4HPRN PRN Administration
mod pain
Oxycodone/Acetaminophen 2 tablet 09/20/23 19:11 09/20/23 23:43
Oxycodone 5 Mg/Apap 325 Mg (Percocet) PO 10/04/23 19:10 2 tablet
Q4HPRN PRN Administration
severe pain
Pantoprazole Sodium 40 mg 09/21/23 08:00 09/21/23 08:44
Pantoprazole 40 Mg Delayed Release Tablet PO 10/19/23 07:59 40 mg
DAILY FRANC Administration
Rosuvastatin Calcium 20 mg 09/21/23 08:00 09/21/23 08:43
Rosuvastatin (Crestor) 20 Mg Tablet PO 10/19/23 07:59 20 mg
DAILY FRANC Administration
Sodium Chloride 0 flush 09/20/23 20:00 09/21/23 10:19
Sodium Chloride 0.9% (Flush) Syringe IV 10/18/23 19:59 2 flush
PER PROTOCOL FRANC Administration
Review of Systems
-
Review of systems notable for HPI, otherwise negative
Physical Exam
-
General: No Apparent Distress
HEENT: Moist Mucous Membranes and Other (Left-sided mandibular swelling/left anterior neck swelling, left-sided maxillary sinus tenderness, no erythema)
Cardiology: S1 and S2
Pulmonary: Clear
GI: Soft
Extremities: Negative Edema
Neurology: Non Focal
Skin: Warm
Hematologic / Lymphatic: No Lymphadenopathy
Labs
Lab Results
WBC 7.9 10^3/uL (4.8-10.8) 09/21/23 07:06
RBC 3.37 10^6/uL (4.20-5.40) L 09/21/23 07:06
Hgb 10.3 g/dL (12.0-16.0) L 09/21/23 07:06
Hct 30.8 % (37.0-47.0) L 09/21/23 07:06
MCV 91.4 fL (81.0-99.0) 09/21/23 07:06
MCH 30.6 pg (27.0-31.0) 09/21/23 07:06
MCHC 33.4 g/dL (33.0-37.0) 09/21/23 07:06
RDW 14.8 % (11.5-14.5) H 09/21/23 07:06
Plt Count 146 10^3/uL (130-400) 09/21/23 07:06
MPV 10.1 fL (7.4-10.4) 09/21/23 07:06
Abs Immat Gran (auto) 0.2 10^3/uL (0-0.05) H 09/21/23 07:06
Absolute Neuts (auto) 5.6 10^3/uL (1.4-6.5) 09/21/23 07:06
Absolute Lymphs (auto) 1.4 10^3/uL (1.2-3.4) 09/21/23 07:06
Absolute Monos (auto) 0.6 10^3/uL (0.1-0.6) 09/21/23 07:06
Absolute Eos (auto) 0.0 10^3/uL (0-0.7) 09/21/23 07:06
Absolute Basos (auto) 0.1 10^3/uL (0-0.2) 09/21/23 07:06
Immature Gran % 1.9 % (0-0.5) H 09/21/23 07:06
Neutrophils % 70.7 % (42.2-75.2) 09/21/23 07:06
Lymphocytes % 18.3 % (20.5-51.1) L 09/21/23 07:06
Monocytes % 7.7 % (1.7-9.3) 09/21/23 07:06
Eosinophils % 0.4 % (0-6) 09/21/23 07:06
Basophils % 1.0 % (0-2) 09/21/23 07:06
Creatinine 0.7 mg/dL (0.6-1.0) 09/21/23 07:06
Vital Signs
Vital Signs
Temp Pulse Resp BP Pulse Ox
99.8 F 100 16 138/74 95
09/21/23 07:24 09/21/23 08:44 09/21/23 07:24 09/21/23 08:44 09/21/23 08:00
--- NOTE | 2023-09-21 13:49 | CM ---
Reviewed the chart notes and spoke with the patient at the bedside. The patient is being admitted under observational status. The [facility] letter was provided and explained. The patient had no questions with regards to the letter.
The patient resides with her spouse in a one story home with one step to enter. The patient reports no DME/VN/SNF in the past. The patient confirmed her pharmacy of choice is the [facility]. continues to be available to
patient/family and is monitoring medical plan for needs at discharge.
Plan: Discharge to home when medically stable. No needs anticipated at this time.
--- NOTE | 2023-09-21 13:58 | W.PN.HOSP.TC ---
Today's Communication/Plan
-
Antibiotics changed to Unasyn
Appreciate ID
ENT consulted recommendations appreciated
Assessment / Plan
Assessment / Plan
Physical Exam
General: Not in acute distress
HEENT: Normocephalic, Moist mucous membranes; Left-sided mandibular swelling into left anterior neck swelling -- soft on the left face, more indurate in the submandibular area, sinus point tenderness left maxilla no erythema appreciated
Respiratory: Clear to Auscultation Bilaterally
Cardiac: S1/S2 and Regular Rhythm
GI: Soft, Non Tender, Non Distended, Normal Bowel Sounds
Musculoskeletal: No Cyanosis and No Edema
Skin: Warm, Dry
Neuro: AAO x 3, No Motor Deficits, Nonfocal/grossly intact, Cranial Nerves Intact and No Sensory Deficits
Psych: Calm

CT Facial Bones W/ Iv Contrast
IMPRESSION:
Left facial soft tissue swelling. No soft tissue abscess. No radiographic evidence of mandibular osteomyelitis. Limited visualization and evaluation of the teeth secondary to metallic artifact from dental fillings.
The paranasal sinuses are clear. No evidence of sinusitis.

Assessment/Plan
#Left facial cellulitis
#Facial cellulitis, twice, following chemotherapy
#Recent sepsis with neutropenic fever, thrush right sided facial swelling with neutropenic fever 08/22 - 08/25/2023 (labs blood cultures were negative patient was not discharged on any antibiotics)
-Was started on outpatient Augmentin without any improvement
-Continue loratadine 10 mg daily
-Consulted ENT, recommendations appreciated: no sinusitis
-Status post IV vancomycin and IV cefepime
-Now transitioned to Unasyn -- continue Unasyn
-Follow CBC, CMP
#Diffuse large B-cell lymphoma history of pancytopenia
On chemo-first chemo August 16, 2023 also given Neulasta at that time, second chemo 09/05/2023 with Neulasta, third chemo due 09/26/2023
-Follows with oncology
-Takes Zofran as needed, Compazine as needed nausea vomiting
-Oncology consulted, recommendations appreciated
#Thyroid cancer status post thyroidectomy
-Continue levothyroxine 125 mcg daily
Thyroid ultrasound: Subcutaneous edema of the left jaw and left lower cheek regions no drainable fluid collection or mass no cervical lymphadenopathy
#DM2
-Accu-Cheks with SSI
-Continue metformin 5 mg twice daily
#HTN
BP stable
-Continue metoprolol succinate 25 mg daily, lisinopril 10 mg daily with hold parameters
#HLD
-Continue fenofibrate 160 mg daily, Crestor 20 mg daily
#GERD
-Continue Protonix 40 mg daily
#History of breast cancer status post left mastectomy
#Depression
-Continue fluoxetine 40 mg daily
#Gout
-Continue allopurinol 300 mg daily
DVT prophylaxis
Subcu Lovenox
Full code
Anticipated Discharge: 24 - 48 hours
Subjective/Interval History
-
Date of Service: September 21, 2023
Patient was seen and examined. No new significant complaints, she said her temperature was up to the 99 F region this morning.
Objective Data
-
Labs:
Laboratory Results
09/21/23
07:06
WBC 7.9
Hgb 10.3 L
Hct 30.8 L
Plt Count 146
Sodium 135
Potassium 4.1
Chloride 106
Carbon Dioxide 26
BUN 19 H
Creatinine 0.7
Glucose 111 H
Calcium 9.1
Total Bilirubin 0.4
AST 17
ALT 14
Alkaline Phosphatase 69
Vital Signs:
Vital Signs
Temp Pulse Resp BP Pulse Ox
99.8 F 100 16 138/74 95
09/21/23 07:24 09/21/23 08:44 09/21/23 07:24 09/21/23 08:44 09/21/23 08:00
I&O
09/20/23 09/21/23 09/22/23
06:59 06:59 06:59
Intake Total 480 / 480
Balance 480 / 480
[2023-09-21 15:00] VITALS: BP 114/61
[2023-09-21 16:42] LABS: Glucose - Point of Care 112 mg/dl (70-99)
[2023-09-21] MEDS: LOVENOX 40 MG SC (17:00)
[2023-09-21 21:27] LABS: Glucose - Point of Care 115 mg/dl (70-99)
[2023-09-21 23:16] VITALS: BP 126/69
[2023-09-22] MEDS: UNASYN IV ×3 (01:36→14:10)
[2023-09-22] MEDS: SYNTHROID 125 MCG PO (05:22)
[2023-09-22 06:49] LABS: % Basophils 1.4 % (0-2); % Eosinophils 0.5 % (0-6); % Immature Granulocytes 1.1 % (0-0.5); % Lymphocytes 27.8 % (20.5-51.1); % Neutrophils 59.2 % (42.2-75.2); Absolute Basophils 0.1 10^3/uL (0-0.2); Absolute Immature Granulocytes 0.1 10^3/uL (0-0.05); Absolute Lymphocytes 1.8 10^3/uL (1.2-3.4); Absolute Monocytes 0.7 10^3/uL (0.1-0.6); Absolute Neutrophils 3.9 10^3/uL (1.4-6.5); Hematocrit 29.8 % (37.0-47.0); Hemoglobin 9.9 g/dL (12.0-16.0); Mean Corp Hgb Conc. 33.2 g/dL (33.0-37.0); Mean Corpuscular Hgb 30.7 pg (27.0-31.0); Mean Corpuscular Volume 92.3 fL (81.0-99.0); Mean Platelet Volume 10.1 fL (7.4-10.4); Nucleated Red Blood Cells % 0.3 %; Platelet Count 168 10^3/uL (130-400); Red Blood Cell Count 3.23 10^6/uL (4.20-5.40); Red Cell Dist. Width 14.8 % (11.5-14.5); White Blood Cell Count 6.6 10^3/uL (4.8-10.8)
[2023-09-22 07:00] VITALS: BP 134/77
[2023-09-22 07:18] LABS: ALT (SGPT) 14 U/L (0-35); AST (SGOT) 21 U/L (14-36); Albumin 3.8 g/dl (3.5-5.0); Alkaline Phosphatase 63 U/L (38-126); Blood Urea Nitrogen 18 mg/dl (7-17); Calcium 9.5 mg/dl (8.4-10.2); Carbon Dioxide 27 mmol/L (22-30); Chloride 105 mmol/L (98-107); Estimated Creatinine Clearance 93 ml/min; Glucose 103 mg/dl (70-99); Sodium 137 mmol/L (135-145); Total Bilirubin 0.5 mg/dl (0.2-1.3); eGFR > 60.00
[2023-09-22 08:15] LABS: Glucose - Point of Care 105 mg/dl (70-99)
[2023-09-22] MEDS: CRESTOR 20 MG PO (08:57)
[2023-09-22] MEDS: ZESTRIL 10 MG PO (08:57)
[2023-09-22] MEDS: OSCAL 500 + D 500 MG PO (08:57)
[2023-09-22] MEDS: TOPROL XL 25 MG PO (08:57)
[2023-09-22] MEDS: PROZAC 40 MG PO (08:57)
[2023-09-22] MEDS: GLUCOPHAGE 500 MG PO (08:57)
[2023-09-22] MEDS: ZYLOPRIM 300 MG PO (08:57)
[2023-09-22] MEDS: TRICOR 145 MG PO (08:57)
[2023-09-22] MEDS: PROTONIX 40 MG PO (08:58)
[2023-09-22] MEDS: CLARITIN 10 MG PO (08:58)
--- NOTE | 2023-09-22 09:09 | W.PN.ID1 ---
Date of Service
Date of Service: September 22, 2023
Today's Communication
Continue abx. See below...
Assessment / Plan
Left mandibular swelling; suspect odontologic infection
Left facial cellulitis
Leukocytosis
Diffuse large B-cell lymphoma (s/p second round of R-CHOP 09/05/2023)
Hx breast cancer (DCIS)
Thyroid cancer
DM
HTN
Recommendations:
Continue Unasyn 3 g IV every 6 hours while inpatient.
Consider ultrasound of area to assess for any evolving drainable collection. If no collection, can likely transition to oral augmentin 875 mg BID.
Patient reports that she has a dental appointment scheduled for 2 days from now.
Follow for clinical improvement.
Chief Complaint
-: Other (left facial cellulitis / swelling.)
Subjective / Review of Systems
Patient seen and examined. Denies pain in the left facial area. Swelling is stable to possibly mildly decreased. Denies trismus.
Review of Systems: No Fever and No Chills
Vital Signs / Physical Exam
Vital Signs
Vital Signs
Temp Pulse Resp BP Pulse Ox
98.9 F 96 16 134/77 95
09/22/23 07:00 09/22/23 07:00 09/22/23 07:00 09/22/23 08:57 09/22/23 07:00
Physical Exam
Constitutional: No Acute Distress, Comfortable and Non-toxic
Eyes: Sclera Anicteric
Oropharyngeal: Other (left facial swelling / induration persists. No fluctuance. Little tenderness.)
Cardiovascular: S1/S2; Negative S3/S4
Pulmonary: Clear; Negative Wheezes or Rales
Gastrointestinal: Soft, Non Distended and Normal Bowel Sounds
Neurological: Awake and Alert
Psychological: Calm
Objective Data
Lab Data
Lab Results
09/22/23 06:06
09/22/23 06:06
Estimated Creat Clear 93 ml/min 09/22/23 06:06
Total Bilirubin 0.5 mg/dl (0.2-1.3) 09/22/23 06:06
AST 21 U/L (14-36) 09/22/23 06:06
ALT 14 U/L (0-35) 09/22/23 06:06
Alkaline Phosphatase 63 U/L (38-126) 09/22/23 06:06
Most recent labs reviewed.
Micro Results:
09/20/23 20:50 Blood Culture - Preliminary
Blood/Venous No Growth in 24 hours- Final report to follow
09/20/23 20:15 Blood Culture - Preliminary
Blood/Venous No Growth in 24 hours- Final report to follow
Imaging:
09/21/2023 CT facial bones with contrast: Left facial soft tissue swelling. No soft tissue abscess. No radiographic evidence of mandibular osteomyelitis. Limited visualization and evaluation of the teeth secondary to metallic artifact from dental
fillings. The paranasal sinuses are clear. No evidence of sinusitis.
[2023-09-22 11:20] LABS: Glucose - Point of Care 110 mg/dl (70-99)
--- NOTE | 2023-09-22 11:29 | W.PN.ONC ---
Addendum entered and electronically signed by Lisa Menendez MD 09/22/23 16:33:
Agree w/ A&P as below
Original Note:
Today's Communication / Plan
-
Formal outpatient dental evaluation recommended by ENT
Continue IV antibiotics per ID with transition to PO upon discharge
Follow CBC with diff daily
Supportive care
The [facility] office was updated of patient's clinical status. She is scheduled for her next treatment , 09/25, however, she will need formal dental evaluation and follow up with Dr. Navarrete prior to resumption of chemotherapy. Most likely
initiate prophylactic antibiotics with treatments. Patient verbalized understanding. We will follow.
Impression
Impression
Recurrent left facial cellulitis
Diffuse�large�B�cell�lymphoma�stage 1 by PET, BMBx negative - s/p C2 RCHOP 09/04 with GCSF 09/05
Hx�thyroid�cancer�s/p�radioactive�iodine�and�external�beam�radiation
Hx�DCIS�s/p�L�mastectomy
Leukocytosis (resolved)
Subjective/Objective
Subjective/Objective
patient is independent in the room. she denies fevers or acute pain. she is concerned about treatment next week.
Vital Signs:
Vital Signs
Temp Pulse Resp BP Pulse Ox
98.9 F 96 16 134/77 95
09/22/23 07:00 09/22/23 07:00 09/22/23 07:00 09/22/23 08:57 09/22/23 10:00
physical exam:
aaox3, left cheek erythema/swelling
Lab Results:
Laboratory Data
WBC 6.6 10^3/uL (4.8-10.8) 09/22/23 06:06
Hgb 9.9 g/dL (12.0-16.0) L 09/22/23 06:06
Plt Count 168 10^3/uL (130-400) 09/22/23 06:06
eGFR > 60.00 09/22/23 06:06
09/20/23: Thyroid US: Subcutaneous edema of the left jaw and left lower cheek regions. No drainable fluid collection or mass by ultrasound. No evidence for cervical lymphadenopathy on this exam
09/21/[address]: Left facial soft tissue swelling. No soft tissue abscess. No radiographic evidence of mandibular osteomyelitis. Limited visualization and evaluation of the teeth secondary to metallic artifact from dental fillings. The
paranasal sinuses are clear. No evidence of sinusitis.
--- NOTE | 2023-09-22 12:43 | CM ---
Reviewed the chart notes and spoke with the patient at the bedside. IMM signed and placed on chart. CM continues to be available to patient/family and is monitoring medical plan for needs at discharge.
Plan: Discharge to home when medically stable. No needs anticipated.
--- NOTE | 2023-09-22 14:12 | W.PN.HOSP.TC ---
Today's Communication/Plan
-
Discharge today
Assessment / Plan
Assessment / Plan
Physical Exam
General: Not in acute distress
HEENT: Normocephalic, Moist mucous membranes; Left-sided mandibular swelling into left anterior neck swelling -- soft on the left face, more indurate in the submandibular area, sinus point tenderness left maxilla - IMPROVED
Respiratory: Clear to Auscultation Bilaterally
Cardiac: S1/S2 and Regular Rhythm
GI: Soft, Non Tender, Non Distended, Normal Bowel Sounds
Musculoskeletal: No Cyanosis and No Edema
Skin: Warm, Dry
Neuro: AAO x 3, No Motor Deficits, Nonfocal/grossly intact, Cranial Nerves Intact and No Sensory Deficits
Psych: Calm

CT Facial Bones W/ Iv Contrast
IMPRESSION:
Left facial soft tissue swelling. No soft tissue abscess. No radiographic evidence of mandibular osteomyelitis. Limited visualization and evaluation of the teeth secondary to metallic artifact from dental fillings.
The paranasal sinuses are clear. No evidence of sinusitis.

Assessment/Plan
#Left facial cellulitis
#Facial cellulitis, twice, following chemotherapy
#Recent sepsis with neutropenic fever, thrush right sided facial swelling with neutropenic fever 08/22 - 08/25/2023 (labs blood cultures were negative patient was not discharged on any antibiotics)
-Was started on outpatient Augmentin without any improvement
-Continue loratadine 10 mg daily
-Consulted ENT, recommendations appreciated: no sinusitis
-Status post IV vancomycin and IV cefepime
-Now transitioned to Unasyn
-Ultrasound today shows no evidence for soft tissue abscess or fluid collection in the left side of the face adjacent to the left mandible, as per the radiologist's report
-On discharge, transition to oral Augmentin 875 mg BID x 11 more days
-Follow-up dental appointment scheduled for 2 days from now.
-Will need formal dental evaluation and follow up with Dr. Navarrete prior to resumption of chemotherapy
-Follow CBC, CMP
#Diffuse large B-cell lymphoma history of pancytopenia
On chemo-first chemo August 16, 2023 also given Neulasta at that time, second chemo 09/05/2023 with Neulasta, third chemo due 09/26/2023
-Follows with oncology
-Takes Zofran as needed, Compazine as needed nausea vomiting
-Oncology consulted, recommendations appreciated
#Thyroid cancer status post thyroidectomy
-Continue levothyroxine 125 mcg daily
Thyroid ultrasound: Subcutaneous edema of the left jaw and left lower cheek regions no drainable fluid collection or mass no cervical lymphadenopathy
#DM2
-Accu-Cheks with SSI
-Continue metformin 5 mg twice daily
#HTN
BP stable
-Continue metoprolol succinate 25 mg daily, lisinopril 10 mg daily with hold parameters
#HLD
-Continue fenofibrate 160 mg daily, Crestor 20 mg daily
#GERD
-Continue Protonix 40 mg daily
#History of breast cancer status post left mastectomy
#Depression
-Continue fluoxetine 40 mg daily
#Gout
-Continue allopurinol 300 mg daily
DVT prophylaxis
Subcutaneous Lovenox
Full code
More than 30 minutes spent in discharge including
Final examination of the patient
Summarizing hospital stay
Instructions for continuing care to all relevant caregivers
Preparation of discharge records, prescriptions, and referral forms
Total time spent (in minutes): 35
Anticipated Discharge: Today
Subjective/Interval History
-
Date of Service: September 22, 2023
Patient was seen and examined. She reports that her facial swelling has improved, and she would be happy to be discharged today.
Objective Data
-
Labs:
Laboratory Results
09/22/23
06:06
WBC 6.6
Hgb 9.9 L
Hct 29.8 L
Plt Count 168
Sodium 137
Potassium 4.0
Chloride 105
Carbon Dioxide 27
BUN 18 H
Creatinine 0.7
Glucose 103 H
Calcium 9.5
Total Bilirubin 0.5
AST 21
ALT 14
Alkaline Phosphatase 63
Vital Signs:
Vital Signs
Temp Pulse Resp BP Pulse Ox
98.9 F 96 16 134/77 95
09/22/23 07:00 09/22/23 07:00 09/22/23 07:00 09/22/23 08:57 09/22/23 10:00
I&O
09/21/23 09/22/23 09/23/23
06:59 06:59 06:59
Intake Total 480 / 480 980 / 980
Balance 480 / 480 980 / 980
[2023-09-22 15:00] VITALS: BP 107/61
--- NOTE | 2023-09-22 15:45 | W.DS.TRANS ---
DC Summary - Drug Abuse Worker
-
Discharge Instructions:
Discharge Diagnosis/Procedures #Left facial cellulitis
#Facial cellulitis, twice, following
chemotherapy
#Recent sepsis with neutropenic fever, thrush
right sided facial swelling with neutropenic
fever 08/22 - 08/25/2023 (labs blood cultures were
negative patient was not discharged on any
antibiotics)
#Diffuse large B-cell lymphoma history of
pancytopenia
#Thyroid cancer status post thyroidectomy
#Type 2 Diabetes Mellitus
#Hypertension
#Hyperlipidemia
#Gastroesophageal Reflux Disease
#History of breast cancer status post left
mastectomy
#Depression
#Gout
Diet Diabetic, Carb Controlled,Low Sodium,Low Fat,Low
Cholesterol
Activity As tolerated
Instructions:
Stand-Alone Forms:
Changes to Home Medications: Yes
Discharge Medications:
DC Medications w/original date entered in W4
calcium carbonate 500 mg-vitamin D3 10 mcg (400 unit) tablet (Calcium 500 + D) 1 tab PO DAILY Supplement 12/06/22
fenofibrate 160 mg tablet 160 mg PO DAILY High Cholesterol 12/06/22
fluoxetine 40 mg capsule 40 mg PO DAILY depression/anxiety 12/06/22
lisinopril 10 mg tablet 10 mg PO DAILY blood pressure 12/06/22
loratadine 10 mg tablet 10 mg PO DAILY allergies 12/06/22
metformin 500 mg tablet 500 mg PO BID diabetes 12/06/22
metoprolol succinate 25 mg tablet,extended release 24 hr 25 mg PO DAILY Blood Pressure 12/06/22
pantoprazole 40 mg tablet,delayed release 40 mg PO DAILY Gastrointestinal Issue 12/06/22
rosuvastatin 10 mg tablet 20 mg PO DAILY High Cholesterol 12/06/22
prochlorperazine maleate 10 mg tablet (Compazine) 10 mg PO Q6H PRN nausea/vomiting 08/15/23
allopurinol 300 mg tablet 300 mg PO DAILY gout 08/23/23
loperamide 2 mg tablet 2 mg PO Q4HPRN PRN diarrhea 08/23/23
acetaminophen 325 mg tablet 650 mg (2 x 325 mg) PO Q4HPRN PRN mild pain/ fever>100.5F #0 tabs 08/25/23
levothyroxine 125 mcg tablet 125 mcg PO DAILY Thyroid 09/20/23
nystatin 100,000 unit/mL oral suspension 500,000 unit PO Q6 PRN thrush from chemo 09/20/23
amoxicillin 875 mg-potassium clavulanate 125 mg tablet 1 tab PO Q12H 11 days #22 tabs 09/22/23
Home Medication Changes
Amoxicillin-Pot Clavulanate is a new medication.
Ondansetron stopped.
Pending Results: Yes
Additional Pending Results:
Final results of blood cultures from hospitalization.
Total time spent discharging patient (in min): 35
--- NOTE | 2023-09-22 16:02 | PTCARENOTE ---
pt discharged home with on PO abx. this nurse went over discharge instructions with patient and her that was at the bedside this afternoon prior to her discharge. IV site in the R wrist was also removed at this time. pt denied need
for wheelchair transport to the patient pickup spot.
--- NOTE | 2023-09-25 10:21 | W.DCSUMMARY ---
Discharge Summary
Discharge Data
Date of Admission: 09/20/23
Date of Discharge: 09/22/23
Total time spent discharging patient (in min): 35
-
Pending Results: Yes
Additional Pending Results:
Final results of blood cultures from hospitalization.
Hospital Course
68-year-old female with past medical history of diffuse large B-cell lymphoma on chemotherapy, HTN, HLD, DM2, depression, thyroid cancer status post thyroidectomy, breast cancer status post left mastectomy, depression and gout presented with left
lower and left jaw area facial swelling which started about 2 days prior to presentation. She reported associated pain. Patient says her last chemotherapy was on 09/05/23. She denied any fever, chills or any other symptoms or systemic symptoms. She
was admitted with cellulitis and placed on broad-spectrum antibiotics -- which resulted in improvement of her symptoms. Imaging, including ultrasound and CT were done, which showed edema but no evidence of a drainable collection or sinusitis (please
see CT and ultrasound imaging reports for more details). Given her immunocompromised state, Infectious Disease and oncology were consulted. Underlying otologic infection was suspected as well. medical information specialist was consulted as well.
Recommendation was for patient to see dentist again prior to next round of chemo, continue washing face daily with soap/water, and it was noted that she may benefit from prophylactic antibiotics with the next round of chemotherapy. Patient was
switched to Unasyn, and on discharge switched to Augmentin. Patient was noted to be scheduled for her next chemotherapy treatment on 09/26/23, however, she woukdl need formal dental evaluation and follow up with Dr. Navarrete (oncologist)
prior to resumption of chemotherapy.
Discharge Plan
-
Patient Disposition: Home (Routine Discharge)
Discharge Diagnosis/Procedures: #Left facial cellulitis
#Facial cellulitis, twice, following chemotherapy
#Recent sepsis with neutropenic fever, thrush right sided facial swelling with neutropenic fever 08/22 - 08/25/2023 (labs blood cultures were negative patient was not discharged on any antibiotics)
#Diffuse large B-cell lymphoma history of pancytopenia
#Thyroid cancer status post thyroidectomy
#Type 2 Diabetes Mellitus
#Hypertension
#Hyperlipidemia
#Gastroesophageal Reflux Disease
#History of breast cancer status post left mastectomy
#Depression
#Gout
Condition: Good
Diet: Low Fat, Low Cholesterol, Low Sodium and Diabetic, Carb Controlled
Activity: As tolerated
Activity Restrictions/Additional Instructions:
-Follow-up dental appointment within less than 1 week.
-You will need formal dental evaluation and follow up with Dr. Navarrete (oncologist) prior to resumption of chemotherapy.
Referrals:
Raúl Del Castillo DO [Family Provider] - in less than 1 week
Additional Discharge Medication Instructions: Amoxicillin-Pot Clavulanate is a new medication.
Ondansetron stopped.
Prescriptions:
New
amoxicillin-pot clavulanate 875-125 mg tablet
1 tab PO Q12H 11 Days Qty: 22 0RF
Continued
fluoxetine 40 mg Capsule
40 mg PO DAILY
metformin 500 mg Tablet
500 mg PO BID
pantoprazole 40 mg Tablet,Delayed Release (Dr/Ec)
40 mg PO DAILY
lisinopril 10 mg Tablet
10 mg PO DAILY
metoprolol succinate 25 mg Tablet Extended Release 24 Hr
25 mg PO DAILY
loratadine 10 mg Tablet
10 mg PO DAILY
rosuvastatin 10 mg Tablet
20 mg PO DAILY
fenofibrate 160 mg Tablet
160 mg PO DAILY
calcium carbonate-vitamin D3 [Calcium 500 + D] 500 mg-10 mcg (400 unit) Tablet
1 tab PO DAILY
prochlorperazine maleate [Compazine] 10 mg Tablet
10 mg PO Q6H PRN (Reason: nausea/vomiting)
loperamide 2 mg Tablet
2 mg PO Q4HPRN PRN (Reason: diarrhea )
allopurinol 300 mg Tablet
300 mg PO DAILY
acetaminophen 325 mg Tablet
650 mg PO Q4HPRN PRN (Reason: mild pain/ fever>100.5F) Qty: 0 0RF
levothyroxine 125 mcg tablet
125 mcg PO DAILY
nystatin 100,000 unit/mL suspension
500,000 unit PO Q6 PRN (Reason: thrush from chemo)
Rx Instructions:
administer 1/2 of dose in each side of the mouth
Discontinued
ondansetron HCl 8 mg Tablet
8 mg PO Q8HPRN PRN (Reason: nausea/vomiting)
amoxicillin-pot clavulanate [Augmentin] 875-125 mg Tablet
1 tab PO BID
Discharge Orders:
Discharge Patient (As Directed); Ordered 09/22/23
Ordered By: Hay Read
Discharge Date and Time
Discharge Date/Time: 09/22/23 16:05
Print Language: UKRAINIAN
== END 2023-09-22 16:05 | disposition home or self-care (01) | DRG 603 ==
LOC: 2 NORTH 09:59
PROVIDERS: Clinical Nurse Specialist Family Health; ADMITTING PHYSICIAN Hospitalist; CONSULT PHYSICIAN Internal Medicine Hematology & Oncology; CONSULT PHYSICIAN Internal Medicine Infectious Disease; CONSULT PHYSICIAN Otolaryngology; EMERGENCY PHYSICIAN Emergency Medicine; FAMILY PHYSICIAN Family Medicine
DX: L03.211 Cellulitis of face (principal); D84.9 Immunodeficiency, unspecified; C83.30 Diffuse large B-cell lymphoma, unspecified site; R68.84 Jaw pain; M10.9 Gout, unspecified; J32.9 Chronic sinusitis, unspecified; K21.9 Gastro-esophageal reflux disease without esophagitis; E89.0 Postprocedural hypothyroidism; I10 Essential (primary) hypertension; E78.00 Pure hypercholesterolemia, unspecified; E11.649 Type 2 diabetes mellitus with hypoglycemia without coma; F32.A Depression, unspecified; F41.9 Anxiety disorder, unspecified; Z92.21 Personal history of antineoplastic chemotherapy; Z79.84 Long term (current) use of oral hypoglycemic drugs; Z79.890 Hormone replacement therapy; Z85.850 Personal history of malignant neoplasm of thyroid; Z90.12 Acquired absence of left breast and nipple; Z85.3 Personal history of malignant neoplasm of breast; Z98.82 Breast implant status
CPT/HCPCS: 70487; 76536; 80053; 82962; 85025; 87040; 96365; 96375; 97116; 97162; 97165; 99284; Q9967

== ENCOUNTER 2023-09-26 10:55 | Outpatient (RCR) | payer BC, SELFPAY ==
--- NOTE | 2023-09-25 15:34 | PTCARENOTE ---
1130- Call from patient, she was discharged from hospital on Monday and questioning if she should have treatment tomorrow cycle 3 R-CHOP. Pt to see dentist today. [place] text Edna Correa DEPORTATION OFFICER for follow up.
1500- Dr. Navarrete called patient, hold treatment this week. Dentist requesting CBC prior to dental work this week, will have done tomorrow. Pt has office visit with Dr. Navarrete 09/29/23 at 0800. Chemotherapy rescheduled for 10/03/23 pending
clearance from dental work.
[2023-09-26 11:06] LABS: % Basophils 0.6 % (0-2); % Eosinophils 0.1 % (0-6); % Immature Granulocytes 0.4 % (0-0.5); % Monocytes 4.9 % (1.7-9.3); Absolute Basophils 0.1 10^3/uL (0-0.2); Absolute Lymphocytes 1.6 10^3/uL (1.2-3.4); Absolute Monocytes 0.4 10^3/uL (0.1-0.6); Absolute Neutrophils 5.7 10^3/uL (1.4-6.5); Hematocrit 33.1 % (37.0-47.0); Hemoglobin 11.1 g/dL (12.0-16.0); Mean Corp Hgb Conc. 33.5 g/dL (33.0-37.0); Mean Corpuscular Hgb 30.4 pg (27.0-31.0); Mean Corpuscular Volume 90.7 fL (81.0-99.0); Platelet Count 425 10^3/uL (130-400); Red Blood Cell Count 3.65 10^6/uL (4.20-5.40); Red Cell Dist. Width 14.8 % (11.5-14.5); White Blood Cell Count 7.8 10^3/uL (4.8-10.8)
[2023-09-26 12:21] LABS: ALT (SGPT) 20 U/L (0-35); AST (SGOT) 22 U/L (14-36); Albumin 4.4 g/dl (3.5-5.0); Alkaline Phosphatase 62 U/L (38-126); Blood Urea Nitrogen 15 mg/dl (7-17); Calcium 9.7 mg/dl (8.4-10.2); Carbon Dioxide 21 mmol/L (22-30); Chloride 108 mmol/L (98-107); Glucose 153 mg/dl (70-99); Potassium 4.1 mmol/L (3.5-5.1); Sodium 138 mmol/L (135-145); Total Bilirubin 0.4 mg/dl (0.2-1.3); Total Protein 6.9 g/dl (6.3-8.2); eGFR > 60.00
== END 2023-09-26 23:59 | disposition home or self-care (01) ==
LOC: OID 10:55
PROVIDERS: ATTENDING PHYSICIAN Internal Medicine Hematology & Oncology
DX: C83.34 Diffuse large B-cell lymphoma, lymph nodes of axilla and upper limb (principal)
CPT/HCPCS: 36415; 80053; 85025

== ENCOUNTER → 2023-10-05 14:28 | Outpatient (REF) | payer BC, SELFPAY | LOC: HWRAD 14:28 | PROVIDERS: ATTENDING PHYSICIAN Internal Medicine Cardiovascular Disease; FAMILY PHYSICIAN Family Medicine | DX: Z92.3 Personal history of irradiation (principal); I65.23 Occlusion and stenosis of bilateral carotid arteries | CPT/HCPCS: 93880 ==

== ENCOUNTER → 2023-10-13 10:53 | Outpatient (REF) | payer BC, SELFPAY | LOC: PET 10:53 | PROVIDERS: ATTENDING PHYSICIAN Internal Medicine Hematology & Oncology | DX: C83.34 Diffuse large B-cell lymphoma, lymph nodes of axilla and upper limb (principal) | CPT/HCPCS: 78815; A9552 ==

== ENCOUNTER 2023-10-25 14:33 | Outpatient (RCR) | payer BC, SELFPAY ==
[2023-10-03] VITALS (9 sets, daily range): BP systolic 108–125; BP diastolic 50–68
[2023-10-03 09:01] LABS: % Basophils 0.9 % (0-2); % Eosinophils 3.6 % (0-6); % Immature Granulocytes 0.4 % (0-0.5); % Lymphocytes 35.1 % (20.5-51.1); % Monocytes 11.1 % (1.7-9.3); % Neutrophils 48.9 % (42.2-75.2); Absolute Eosinophils 0.2 10^3/uL (0-0.7); Absolute Lymphocytes 1.6 10^3/uL (1.2-3.4); Absolute Monocytes 0.5 10^3/uL (0.1-0.6); Absolute Neutrophils 2.2 10^3/uL (1.4-6.5); Hematocrit 31.2 % (37.0-47.0); Hemoglobin 10.4 g/dL (12.0-16.0); Mean Corp Hgb Conc. 33.3 g/dL (33.0-37.0); Mean Corpuscular Hgb 30.7 pg (27.0-31.0); Mean Platelet Volume 8.5 fL (7.4-10.4); Platelet Count 364 10^3/uL (130-400); Red Blood Cell Count 3.39 10^6/uL (4.20-5.40); Red Cell Dist. Width 15.2 % (11.5-14.5); White Blood Cell Count 4.5 10^3/uL (4.8-10.8)
[2023-10-03 09:30] LABS: ALT (SGPT) 20 U/L (0-35); AST (SGOT) 22 U/L (14-36); Alkaline Phosphatase 56 U/L (38-126); Blood Urea Nitrogen 16 mg/dl (7-17); Calcium 9.5 mg/dl (8.4-10.2); Carbon Dioxide 26 mmol/L (22-30); Chloride 105 mmol/L (98-107); Glucose 113 mg/dl (70-99); Sodium 135 mmol/L (135-145); Total Bilirubin 0.4 mg/dl (0.2-1.3); Total Protein 6.5 g/dl (6.3-8.2); eGFR > 60.00
[2023-10-03] MEDS: BENADRYL 50.5 MG IV (10:20)
[2023-10-03] MEDS: TYLENOL 500 MG PO (10:21)
[2023-10-03] MEDS: RUXIENCE 200 MG IV (10:57)
[2023-10-03] MEDS: EMEND 150 MG IV (14:11)
[2023-10-03] MEDS: ALOXI 5 MG IV (14:53)
[2023-10-03] MEDS: DECADRON 51 MG IV (14:54)
[2023-10-03] MEDS: ADRIAMYCIN 26.75 MG IV ×2 (15:29)
[2023-10-03] MEDS: ONCOVIN 52 MG IV (15:30)
[2023-10-03] MEDS: CYCLOPHOSPHAMIDE 257.990000000000009 MG IV (16:03)
[2023-10-04 15:00] VITALS: BP 144/86
[2023-10-04] MEDS: NYVEPRIA 6 MG SC (15:05)
[2023-10-10 09:59] LABS: % Basophils 1.2 % (0-2); % Immature Granulocytes 0.6 % (0-0.5); % Lymphocytes 50.3 % (20.5-51.1); % Monocytes 5.4 % (1.7-9.3); % Neutrophils 27.5 % (42.2-75.2); Absolute Eosinophils 0.3 10^3/uL (0-0.7); Absolute Lymphocytes 0.8 10^3/uL (1.2-3.4); Absolute Monocytes 0.1 10^3/uL (0.1-0.6); Absolute Neutrophils 0.5 10^3/uL (1.4-6.5); Hematocrit 31.8 % (37.0-47.0); Hemoglobin 10.7 g/dL (12.0-16.0); Mean Corp Hgb Conc. 33.6 g/dL (33.0-37.0); Mean Corpuscular Hgb 30.9 pg (27.0-31.0); Mean Corpuscular Volume 91.9 fL (81.0-99.0); Mean Platelet Volume 8.9 fL (7.4-10.4); Platelet Count 177 10^3/uL (130-400); Red Blood Cell Count 3.46 10^6/uL (4.20-5.40); Red Cell Dist. Width 14.6 % (11.5-14.5); White Blood Cell Count 1.7 10^3/uL (4.8-10.8)
[2023-10-10 11:34] LABS: ALT (SGPT) 14 U/L (0-35); AST (SGOT) 17 U/L (14-36); Albumin 3.9 g/dl (3.5-5.0); Alkaline Phosphatase 66 U/L (38-126); Blood Urea Nitrogen 22 mg/dl (7-17); Calcium 9.6 mg/dl (8.4-10.2); Carbon Dioxide 25 mmol/L (22-30); Chloride 104 mmol/L (98-107); Glucose 136 mg/dl (70-99); Potassium 3.6 mmol/L (3.5-5.1); Sodium 138 mmol/L (135-145); Total Bilirubin 0.7 mg/dl (0.2-1.3); Total Protein 6.2 g/dl (6.3-8.2); eGFR > 60.00
[2023-10-17 09:57] LABS: % Basophils 0.8 % (0-2); % Eosinophils 1.1 % (0-6); % Lymphocytes 22.5 % (20.5-51.1); % Monocytes 10.3 % (1.7-9.3); % Neutrophils 62.3 % (42.2-75.2); Absolute Eosinophils 0.1 10^3/uL (0-0.7); Absolute Immature Granulocytes 0.2 10^3/uL (0-0.05); Absolute Lymphocytes 1.2 10^3/uL (1.2-3.4); Absolute Monocytes 0.6 10^3/uL (0.1-0.6); Absolute Neutrophils 3.3 10^3/uL (1.4-6.5); Hematocrit 31.4 % (37.0-47.0); Hemoglobin 10.4 g/dL (12.0-16.0); Mean Corp Hgb Conc. 33.1 g/dL (33.0-37.0); Mean Corpuscular Hgb 30.5 pg (27.0-31.0); Mean Corpuscular Volume 92.1 fL (81.0-99.0); Mean Platelet Volume 10.1 fL (7.4-10.4); Platelet Count 152 10^3/uL (130-400); Red Blood Cell Count 3.41 10^6/uL (4.20-5.40); Red Cell Dist. Width 15.6 % (11.5-14.5); White Blood Cell Count 5.3 10^3/uL (4.8-10.8)
[2023-10-24] VITALS (11 sets, daily range): BP systolic 88–126; BP diastolic 41–77
[2023-10-24 08:19] LABS: % Basophils 1.2 % (0-2); % Eosinophils 0.9 % (0-6); % Immature Granulocytes 0.2 % (0-0.5); % Lymphocytes 28.1 % (20.5-51.1); % Monocytes 13.5 % (1.7-9.3); % Neutrophils 56.1 % (42.2-75.2); Absolute Basophils 0.1 10^3/uL (0-0.2); Absolute Lymphocytes 1.2 10^3/uL (1.2-3.4); Absolute Monocytes 0.6 10^3/uL (0.1-0.6); Absolute Neutrophils 2.4 10^3/uL (1.4-6.5); Hemoglobin 10.3 g/dL (12.0-16.0); Mean Corp Hgb Conc. 33.2 g/dL (33.0-37.0); Mean Corpuscular Hgb 30.7 pg (27.0-31.0); Mean Corpuscular Volume 92.5 fL (81.0-99.0); Mean Platelet Volume 9.2 fL (7.4-10.4); Platelet Count 299 10^3/uL (130-400); Red Blood Cell Count 3.35 10^6/uL (4.20-5.40); Red Cell Dist. Width 15.7 % (11.5-14.5); White Blood Cell Count 4.2 10^3/uL (4.8-10.8)
[2023-10-24 08:41] LABS: ALT (SGPT) 35 U/L (0-35); AST (SGOT) 34 U/L (14-36); Alkaline Phosphatase 65 U/L (38-126); Blood Urea Nitrogen 17 mg/dl (7-17); Calcium 9.9 mg/dl (8.4-10.2); Carbon Dioxide 24 mmol/L (22-30); Chloride 104 mmol/L (98-107); Glucose 131 mg/dl (70-99); Potassium 3.6 mmol/L (3.5-5.1); Sodium 138 mmol/L (135-145); Total Bilirubin 0.5 mg/dl (0.2-1.3); Total Protein 6.4 g/dl (6.3-8.2); Uric Acid 2.2 mg/dl (2.5-6.2); eGFR > 60.00
[2023-10-24] MEDS: TYLENOL 500 MG PO (09:30)
[2023-10-24] MEDS: BENADRYL 50.5 MG IV (09:31)
[2023-10-24] MEDS: RUXIENCE 200 MG IV (10:03)
[2023-10-24] MEDS: EMEND 150 MG IV (13:04)
[2023-10-24] MEDS: DECADRON 51 MG IV (13:42)
[2023-10-24] MEDS: ALOXI 5 MG IV (13:42)
[2023-10-24] MEDS: ADRIAMYCIN 26.75 MG IV ×2 (14:21→14:22)
[2023-10-24] MEDS: ONCOVIN 52 MG IV (14:23)
[2023-10-24] MEDS: CYCLOPHOSPHAMIDE 257.990000000000009 MG IV (14:59)
[2023-10-25 14:45] VITALS: BP 122/54
[2023-10-25] MEDS: NYVEPRIA 6 MG SC (14:57)
== END 2023-10-26 08:45 | disposition home or self-care (01) ==
LOC: OID 14:33
PROVIDERS: ATTENDING PHYSICIAN Internal Medicine Hematology & Oncology; FAMILY PHYSICIAN Family Medicine
DX: Z51.11 Encounter for antineoplastic chemotherapy (principal); C83.34 Diffuse large B-cell lymphoma, lymph nodes of axilla and upper limb
CPT/HCPCS: 36415; 80053; 84550; 85025; 96367; 96372; 96375; 96411; 96413; 96415; 96417; J1453; J2469; J9000; J9073; Q5119; Q5122

== ENCOUNTER 2023-11-21 09:11 | Outpatient (RCR) | payer BC, SELFPAY ==
[2023-11-01 10:57] LABS: % Basophils 2.1 % (0-2); % Eosinophils 5.3 % (0-6); % Lymphocytes 69.1 % (20.5-51.1); % Monocytes 18.1 % (1.7-9.3); % Neutrophils 5.4 % (42.2-75.2); Absolute Eosinophils 0.1 10^3/uL (0-0.7); Absolute Lymphocytes 0.7 10^3/uL (1.2-3.4); Absolute Monocytes 0.2 10^3/uL (0.1-0.6); Hematocrit 27.8 % (37.0-47.0); Hemoglobin 9.4 g/dL (12.0-16.0); Mean Corp Hgb Conc. 33.8 g/dL (33.0-37.0); Mean Corpuscular Hgb 30.7 pg (27.0-31.0); Mean Corpuscular Volume 90.8 fL (81.0-99.0); Mean Platelet Volume 9.5 fL (7.4-10.4); Platelet Count 163 10^3/uL (130-400); Red Blood Cell Count 3.06 10^6/uL (4.20-5.40); Red Cell Dist. Width 14.4 % (11.5-14.5)
[2023-11-01 10:59] LABS: White Blood Cell Count 0.9 10^3/uL (4.8-10.8)
[2023-11-01 11:00] LABS: Absolute Neutrophils 0.1 10^3/uL (1.4-6.5)
[2023-11-01 11:30] VITALS: BP 83/52
[2023-11-01] MEDS: NSS 1000 IV (11:30)
[2023-11-01 13:05] VITALS: BP 130/63
--- NOTE | 2023-11-01 13:29 | W.PN.UPDATE ---
Update Note
- Progress Note Update
11/01/23 13:29
Patient seen in OID today for routine labs prior to visit with oncology Monday. Last chemo 10/23 and neulasta 10/24. Cbc drawn today. VSS with BP low at 83/53 HR 108. Pt reports being weak and requesting fluids. Order for IVF 1000cc ordered.
Assessed patient sitting comfortable in OID chair. Reports that her typical days of fatigue are monday and monday after treatment (which was yesterday and today) and then starts feeling better. NO other symptoms noted. Urinating well and
drinking well. Denies any other problems or questions. Will be available as needed for future questions and she has my contact information if she would like to reach out. Encouraged increased fluids at home and to call for any worsening or new
symptoms.
11/01/23 13:32
[2023-11-07 11:28] LABS: % Basophils 1.3 % (0-2); % Eosinophils 0.4 % (0-6); % Immature Granulocytes 4.1 % (0-0.5); % Lymphocytes 23.4 % (20.5-51.1); % Monocytes 9.6 % (1.7-9.3); % Neutrophils 61.2 % (42.2-75.2); Absolute Basophils 0.1 10^3/uL (0-0.2); Absolute Immature Granulocytes 0.2 10^3/uL (0-0.05); Absolute Lymphocytes 1.3 10^3/uL (1.2-3.4); Absolute Monocytes 0.5 10^3/uL (0.1-0.6); Absolute Neutrophils 3.3 10^3/uL (1.4-6.5); Hematocrit 28.9 % (37.0-47.0); Hemoglobin 9.8 g/dL (12.0-16.0); Mean Corp Hgb Conc. 33.9 g/dL (33.0-37.0); Mean Corpuscular Hgb 30.2 pg (27.0-31.0); Mean Corpuscular Volume 89.2 fL (81.0-99.0); Mean Platelet Volume 10.4 fL (7.4-10.4); Nucleated Red Blood Cells % 0.4 %; Platelet Count 160 10^3/uL (130-400); Red Blood Cell Count 3.24 10^6/uL (4.20-5.40); White Blood Cell Count 5.4 10^3/uL (4.8-10.8)
[2023-11-14 10:43] LABS: % Basophils 1.1 % (0-2); % Eosinophils 0.5 % (0-6); % Immature Granulocytes 0.3 % (0-0.5); % Lymphocytes 43.8 % (20.5-51.1); % Monocytes 14.5 % (1.7-9.3); % Neutrophils 39.8 % (42.2-75.2); Absolute Lymphocytes 1.7 10^3/uL (1.2-3.4); Absolute Monocytes 0.6 10^3/uL (0.1-0.6); Absolute Neutrophils 1.5 10^3/uL (1.4-6.5); Hematocrit 30.4 % (37.0-47.0); Hemoglobin 10.2 g/dL (12.0-16.0); Mean Corp Hgb Conc. 33.6 g/dL (33.0-37.0); Mean Corpuscular Hgb 31.6 pg (27.0-31.0); Mean Corpuscular Volume 94.1 fL (81.0-99.0); Mean Platelet Volume 8.7 fL (7.4-10.4); Platelet Count 324 10^3/uL (130-400); Red Blood Cell Count 3.23 10^6/uL (4.20-5.40); Red Cell Dist. Width 16.6 % (11.5-14.5); White Blood Cell Count 3.8 10^3/uL (4.8-10.8)
[2023-11-21 09:31] LABS: % Basophils 0.7 % (0-2); % Eosinophils 0.9 % (0-6); % Immature Granulocytes 0.2 % (0-0.5); % Lymphocytes 45.3 % (20.5-51.1); % Monocytes 14.3 % (1.7-9.3); % Neutrophils 38.6 % (42.2-75.2); Absolute Monocytes 0.6 10^3/uL (0.1-0.6); Absolute Neutrophils 1.7 10^3/uL (1.4-6.5); Hemoglobin 10.4 g/dL (12.0-16.0); Mean Corp Hgb Conc. 33.5 g/dL (33.0-37.0); Mean Corpuscular Hgb 31.4 pg (27.0-31.0); Mean Corpuscular Volume 93.7 fL (81.0-99.0); Mean Platelet Volume 8.9 fL (7.4-10.4); Platelet Count 288 10^3/uL (130-400); Red Blood Cell Count 3.31 10^6/uL (4.20-5.40); Red Cell Dist. Width 15.4 % (11.5-14.5); White Blood Cell Count 4.5 10^3/uL (4.8-10.8)
== END 2023-11-26 23:59 | disposition home or self-care (01) ==
LOC: OID 09:11
PROVIDERS: ATTENDING PHYSICIAN Internal Medicine Hematology & Oncology; FAMILY PHYSICIAN Family Medicine
DX: C83.34 Diffuse large B-cell lymphoma, lymph nodes of axilla and upper limb (principal); Z51.11 Encounter for antineoplastic chemotherapy
CPT/HCPCS: 36415; 85025; 96360; 96361

== ENCOUNTER → 2023-12-11 12:52 | Outpatient (REF) | payer BC, SELFPAY | LOC: RCS 12:52 | PROVIDERS: ATTENDING PHYSICIAN Internal Medicine Cardiovascular Disease; FAMILY PHYSICIAN Family Medicine | DX: C85.10 Unspecified B-cell lymphoma, unspecified site (principal); D05.12 Intraductal carcinoma in situ of left breast; T45.1X5D Adverse effect of antineoplastic and immunosuppressive drugs, subsequent encounter | CPT/HCPCS: 93306; Q9950 ==

== ENCOUNTER 2023-12-19 09:03 | Outpatient (RCR) | payer BC, SELFPAY ==
[2023-11-28 10:05] LABS: % Basophils 0.5 % (0-2); % Eosinophils 2.5 % (0-6); % Immature Granulocytes 0.2 % (0-0.5); % Lymphocytes 39.1 % (20.5-51.1); % Monocytes 11.1 % (1.7-9.3); % Neutrophils 46.6 % (42.2-75.2); Absolute Eosinophils 0.2 10^3/uL (0-0.7); Absolute Lymphocytes 2.5 10^3/uL (1.2-3.4); Absolute Monocytes 0.7 10^3/uL (0.1-0.6); Absolute Neutrophils 2.9 10^3/uL (1.4-6.5); Hematocrit 32.3 % (37.0-47.0); Hemoglobin 10.7 g/dL (12.0-16.0); Mean Corp Hgb Conc. 33.1 g/dL (33.0-37.0); Mean Corpuscular Hgb 31.1 pg (27.0-31.0); Mean Corpuscular Volume 93.9 fL (81.0-99.0); Mean Platelet Volume 8.8 fL (7.4-10.4); Platelet Count 326 10^3/uL (130-400); Red Blood Cell Count 3.44 10^6/uL (4.20-5.40); Red Cell Dist. Width 14.4 % (11.5-14.5); White Blood Cell Count 6.3 10^3/uL (4.8-10.8)
[2023-12-05 09:14] LABS: % Basophils 0.2 % (0-2); % Eosinophils 2.8 % (0-6); % Immature Granulocytes 0.2 % (0-0.5); % Lymphocytes 33.4 % (20.5-51.1); % Neutrophils 53.4 % (42.2-75.2); Absolute Eosinophils 0.1 10^3/uL (0-0.7); Absolute Lymphocytes 1.6 10^3/uL (1.2-3.4); Absolute Monocytes 0.5 10^3/uL (0.1-0.6); Absolute Neutrophils 2.5 10^3/uL (1.4-6.5); Hematocrit 32.2 % (37.0-47.0); Hemoglobin 10.6 g/dL (12.0-16.0); Mean Corp Hgb Conc. 32.9 g/dL (33.0-37.0); Mean Corpuscular Hgb 30.6 pg (27.0-31.0); Mean Corpuscular Volume 93.1 fL (81.0-99.0); Mean Platelet Volume 8.8 fL (7.4-10.4); Platelet Count 257 10^3/uL (130-400); Red Blood Cell Count 3.46 10^6/uL (4.20-5.40); Red Cell Dist. Width 13.4 % (11.5-14.5); White Blood Cell Count 4.7 10^3/uL (4.8-10.8)
[2023-12-19 09:20] VITALS: BP 142/56
[2023-12-19 10:10] LABS: % Basophils 0.5 % (0-2); % Eosinophils 3.2 % (0-6); % Immature Granulocytes 0.3 % (0-0.5); % Lymphocytes 40.6 % (20.5-51.1); % Monocytes 11.3 % (1.7-9.3); % Neutrophils 44.1 % (42.2-75.2); Absolute Eosinophils 0.1 10^3/uL (0-0.7); Absolute Lymphocytes 1.5 10^3/uL (1.2-3.4); Absolute Monocytes 0.4 10^3/uL (0.1-0.6); Absolute Neutrophils 1.6 10^3/uL (1.4-6.5); Hematocrit 31.5 % (37.0-47.0); Hemoglobin 10.6 g/dL (12.0-16.0); Mean Corp Hgb Conc. 33.7 g/dL (33.0-37.0); Mean Corpuscular Hgb 30.9 pg (27.0-31.0); Mean Corpuscular Volume 91.8 fL (81.0-99.0); Platelet Count 279 10^3/uL (130-400); Red Blood Cell Count 3.43 10^6/uL (4.20-5.40); Red Cell Dist. Width 12.4 % (11.5-14.5); White Blood Cell Count 3.7 10^3/uL (4.8-10.8)
== END 2023-12-20 10:24 | disposition home or self-care (01) ==
LOC: OID 09:03
PROVIDERS: ATTENDING PHYSICIAN Internal Medicine Hematology & Oncology; FAMILY PHYSICIAN Family Medicine
DX: C83.34 Diffuse large B-cell lymphoma, lymph nodes of axilla and upper limb (principal); Z51.11 Encounter for antineoplastic chemotherapy
CPT/HCPCS: 36415; 36591; 85025; 96523

== ENCOUNTER 2024-01-09 08:58 | Outpatient (RCR) | payer BC, SELFPAY ==
[2024-01-09 09:10] LABS: % Basophils 0.7 % (0-2); % Eosinophils 2.9 % (0-6); % Lymphocytes 23.9 % (20.5-51.1); % Monocytes 11.2 % (1.7-9.3); % Neutrophils 61.3 % (42.2-75.2); Absolute Eosinophils 0.1 10^3/uL (0-0.7); Absolute Lymphocytes 0.7 10^3/uL (1.2-3.4); Absolute Monocytes 0.3 10^3/uL (0.1-0.6); Absolute Neutrophils 1.7 10^3/uL (1.4-6.5); Hematocrit 33.6 % (37.0-47.0); Hemoglobin 11.3 g/dL (12.0-16.0); Mean Corp Hgb Conc. 33.6 g/dL (33.0-37.0); Mean Corpuscular Hgb 30.2 pg (27.0-31.0); Mean Corpuscular Volume 89.8 fL (81.0-99.0); Mean Platelet Volume 8.9 fL (7.4-10.4); Platelet Count 257 10^3/uL (130-400); Red Blood Cell Count 3.74 10^6/uL (4.20-5.40); Red Cell Dist. Width 12.2 % (11.5-14.5); White Blood Cell Count 2.8 10^3/uL (4.8-10.8)
== END 2024-01-27 23:59 | disposition home or self-care (01) ==
LOC: OID 08:58
PROVIDERS: ATTENDING PHYSICIAN Internal Medicine Hematology & Oncology; FAMILY PHYSICIAN Family Medicine
DX: C83.34 Diffuse large B-cell lymphoma, lymph nodes of axilla and upper limb (principal); Z51.11 Encounter for antineoplastic chemotherapy
CPT/HCPCS: 36415; 85025

== ENCOUNTER → 2024-02-05 09:05 | Outpatient (REF) | payer BC, SELFPAY ==
[2024-02-05 09:15] VITALS: BP 139/66; BP_SYST 77
[2024-02-05 10:00] VITALS: BP 118/69; BP_SYST 66
[2024-02-05 10:15] VITALS: BP 118/69
== END ==
LOC: RADI 09:05
PROVIDERS: ATTENDING PHYSICIAN Internal Medicine Hematology & Oncology; FAMILY PHYSICIAN Family Medicine
DX: Z45.2 Encounter for adjustment and management of vascular access device (principal); Z85.72 Personal history of non-Hodgkin lymphomas
CPT/HCPCS: 36590; 77001

== ENCOUNTER → 2024-04-05 14:10 | Outpatient (REF) | payer BC, SELFPAY ==
[2024-04-05 15:00] LABS: % Basophils 0.7 % (0-2); % Eosinophils 2.2 % (0-6); % Immature Granulocytes 0.2 % (0-0.5); % Lymphocytes 25.1 % (20.5-51.1); % Monocytes 8.9 % (1.7-9.3); % Neutrophils 62.9 % (42.2-75.2); Absolute Eosinophils 0.1 10^3/uL (0-0.7); Absolute Lymphocytes 1.2 10^3/uL (1.2-3.4); Absolute Monocytes 0.4 10^3/uL (0.1-0.6); Absolute Neutrophils 2.9 10^3/uL (1.4-6.5); Hematocrit 33.7 % (37.0-47.0); Hemoglobin 11.3 g/dL (12.0-16.0); Mean Corp Hgb Conc. 33.5 g/dL (33.0-37.0); Mean Corpuscular Hgb 29.4 pg (27.0-31.0); Mean Corpuscular Volume 87.8 fL (81.0-99.0); Mean Platelet Volume 9.2 fL (7.4-10.4); Nucleated Red Blood Cells % 0 %; Platelet Count 297 10^3/uL (130-400); Red Blood Cell Count 3.84 10^6/uL (4.20-5.40); Red Cell Dist. Width 13.7 % (11.5-14.5); White Blood Cell Count 4.6 10^3/uL (4.8-10.8)
[2024-04-05 15:23] LABS: ALT (SGPT) 23 U/L (0-35); AST (SGOT) 24 U/L (14-36); Albumin 4.3 g/dl (3.5-5.0); Alkaline Phosphatase 55 U/L (38-126); Blood Urea Nitrogen 16 mg/dl (7-17); Calcium 9.7 mg/dl (8.4-10.2); Carbon Dioxide 26 mmol/L (22-30); Chloride 102 mmol/L (98-107); Glucose 100 mg/dl (70-99); LDH 153 U/L (120-246); Potassium 3.9 mmol/L (3.5-5.1); Sodium 140 mmol/L (135-145); Total Bilirubin 0.7 mg/dl (0.2-1.3); Total Protein 6.6 g/dl (6.3-8.2); eGFR > 60.00
== END ==
LOC: REG 14:10
PROVIDERS: ATTENDING PHYSICIAN Internal Medicine Hematology & Oncology; FAMILY PHYSICIAN Family Medicine
DX: C83.34 Diffuse large B-cell lymphoma, lymph nodes of axilla and upper limb (principal); Z86.000 Personal history of in-situ neoplasm of breast; Z90.12 Acquired absence of left breast and nipple; Z85.850 Personal history of malignant neoplasm of thyroid; J01.90 Acute sinusitis, unspecified
CPT/HCPCS: 36415; 80053; 83615; 85025

== ENCOUNTER → 2024-04-11 10:45 | Outpatient (REF) | payer BC, SELFPAY | LOC: PET 10:45 | PROVIDERS: ATTENDING PHYSICIAN Internal Medicine Hematology & Oncology | DX: C83.34 Diffuse large B-cell lymphoma, lymph nodes of axilla and upper limb (principal) | CPT/HCPCS: 78815; A9552 ==

== ENCOUNTER → 2024-05-06 13:45 | Outpatient (REF) | payer BC, SELFPAY | LOC: RCS 13:45 | PROVIDERS: ATTENDING PHYSICIAN Internal Medicine Cardiovascular Disease; FAMILY PHYSICIAN Family Medicine | DX: C85.10 Unspecified B-cell lymphoma, unspecified site (principal); I31.39 Other pericardial effusion (noninflammatory) | CPT/HCPCS: 93306; 93356 ==

== ENCOUNTER → 2024-07-15 10:19 | Outpatient (REF) | payer BC, SELFPAY ==
[2024-07-15 11:57] LABS: % Basophils 1.5 % (0-2); % Eosinophils 2.6 % (0-6); % Lymphocytes 33.9 % (20.5-51.1); % Monocytes 11.1 % (1.7-9.3); % Neutrophils 50.9 % (42.2-75.2); Absolute Eosinophils 0.1 10^3/uL (0-0.7); Absolute Lymphocytes 0.9 10^3/uL (1.2-3.4); Absolute Monocytes 0.3 10^3/uL (0.1-0.6); Absolute Neutrophils 1.4 10^3/uL (1.4-6.5); Hematocrit 36.8 % (37.0-47.0); Hemoglobin 12.1 g/dL (12.0-16.0); Mean Corp Hgb Conc. 32.9 g/dL (33.0-37.0); Mean Corpuscular Hgb 29.7 pg (27.0-31.0); Mean Corpuscular Volume 90.4 fL (81.0-99.0); Mean Platelet Volume 9.3 fL (7.4-10.4); Nucleated Red Blood Cells % 0 %; Platelet Count 277 10^3/uL (130-400); Red Blood Cell Count 4.07 10^6/uL (4.20-5.40); Red Cell Dist. Width 12.6 % (11.5-14.5); White Blood Cell Count 2.7 10^3/uL (4.8-10.8)
[2024-07-15 12:25] LABS: Glycohemoglobin (HgbA1c) 5.6 % (4.0-5.6)
[2024-07-15 13:09] LABS: ALT (SGPT) 25 U/L (0-35); AST (SGOT) 27 U/L (14-36); Albumin 4.1 g/dl (3.5-5.0); Alkaline Phosphatase 56 U/L (38-126); Blood Urea Nitrogen 19 mg/dl (7-17); Calcium 9.4 mg/dl (8.4-10.2); Carbon Dioxide 28 mmol/L (22-30); Chloride 104 mmol/L (98-107); Glucose 105 mg/dl (70-99); HDL Cholesterol 56 mg/dl; LDH 157 U/L (120-246); LDL Cholesterol, Calculated 74 mg/dl; Potassium 4.3 mmol/L (3.5-5.1); Sodium 140 mmol/L (135-145); Total Bilirubin 0.7 mg/dl (0.2-1.3); Total Cholesterol 153 mg/dl (50-199); Total Protein 6.5 g/dl (6.3-8.2); Triglyceride 115 mg/dl (10-149); Very Low Density Lipoprotein 23 mg/dl (0-30); eGFR > 60.00
[2024-07-15 13:14] LABS: Vitamin D, 25-OH*** 41.6 ng/mL (30-80)
[2024-07-15 13:27] LABS: TSH Reflex To Free T4 < 0.02 uIU/ml (0.47-4.68)
[2024-07-15 13:55] LABS: Free T4 1.94 ng/dl (0.78-2.19)
== END ==
LOC: REG 10:19
PROVIDERS: ATTENDING PHYSICIAN Internal Medicine Hematology & Oncology; FAMILY PHYSICIAN Family Medicine
DX: C83.34 Diffuse large B-cell lymphoma, lymph nodes of axilla and upper limb (principal); Z86.000 Personal history of in-situ neoplasm of breast; Z90.12 Acquired absence of left breast and nipple; Z85.850 Personal history of malignant neoplasm of thyroid; J01.90 Acute sinusitis, unspecified; E03.9 Hypothyroidism, unspecified; E55.9 Vitamin D deficiency, unspecified; R73.01 Impaired fasting glucose; E78.2 Mixed hyperlipidemia; C85.10 Unspecified B-cell lymphoma, unspecified site; D70.9 Neutropenia, unspecified
CPT/HCPCS: 36415; 80053; 80061; 82306; 83036; 83615; 84439; 84443; 85025

== ENCOUNTER → 2024-07-16 13:15 | Outpatient (REF) | payer BC, SELFPAY | LOC: RAD 13:15 | PROVIDERS: ATTENDING PHYSICIAN Internal Medicine Hematology & Oncology; FAMILY PHYSICIAN Family Medicine | DX: C83.34 Diffuse large B-cell lymphoma, lymph nodes of axilla and upper limb (principal); Z90.12 Acquired absence of left breast and nipple; Z85.850 Personal history of malignant neoplasm of thyroid; J01.90 Acute sinusitis, unspecified | CPT/HCPCS: 71260; Q9967 ==

== ENCOUNTER 2024-07-29 06:20 | Day surgery (SDC) | payer BC, SELFPAY ==
[2024-07-29 11:29] LABS: Glucose - Point of Care 98 mg/dl (70-99)
== END 2024-07-29 13:35 | disposition home or self-care (01) ==
LOC: GI 06:20
PROVIDERS: ATTENDING PHYSICIAN Specialist; FAMILY PHYSICIAN Family Medicine
DX: R93.3 Abnormal findings on diagnostic imaging of other parts of digestive tract (principal); K31.7 Polyp of stomach and duodenum; K31.89 Other diseases of stomach and duodenum
CPT/HCPCS: 43251; 43239; 88305; 82962

== ENCOUNTER → 2024-08-06 13:50 | Outpatient (REF) | payer BC, SELFPAY | LOC: WDC 13:50 | PROVIDERS: ATTENDING PHYSICIAN Obstetrics & Gynecology Gynecology; FAMILY PHYSICIAN Family Medicine | DX: Z13.820 Encounter for screening for osteoporosis (principal); Z78.0 Asymptomatic menopausal state; Z12.31 Encounter for screening mammogram for malignant neoplasm of breast; Z85.3 Personal history of malignant neoplasm of breast; Z90.12 Acquired absence of left breast and nipple | CPT/HCPCS: 77063; 77067; 77080 ==

== ENCOUNTER → 2024-09-25 08:32 | Outpatient (REF) | payer BC, SELFPAY | LOC: REG 08:32 | PROVIDERS: ATTENDING PHYSICIAN Family Medicine | DX: Z85.850 Personal history of malignant neoplasm of thyroid (principal); E03.9 Hypothyroidism, unspecified | CPT/HCPCS: 36415; 84443 ==

== ENCOUNTER → 2024-10-22 07:33 | Outpatient (REF) | payer BC, SELFPAY ==
[2024-10-22 08:13] LABS: % Basophils 1.2 % (0-2); % Eosinophils 2.3 % (0-6); % Immature Granulocytes 0.2 % (0-0.5); % Lymphocytes 29.3 % (20.5-51.1); % Monocytes 9.4 % (1.7-9.3); % Neutrophils 57.6 % (42.2-75.2); Absolute Basophils 0.1 10^3/uL (0-0.2); Absolute Eosinophils 0.1 10^3/uL (0-0.7); Absolute Lymphocytes 1.3 10^3/uL (1.2-3.4); Absolute Monocytes 0.4 10^3/uL (0.1-0.6); Absolute Neutrophils 2.5 10^3/uL (1.4-6.5); Hematocrit 36.8 % (37.0-47.0); Hemoglobin 12.2 g/dL (12.0-16.0); Mean Corp Hgb Conc. 33.2 g/dL (33.0-37.0); Mean Corpuscular Hgb 30.3 pg (27.0-31.0); Mean Corpuscular Volume 91.3 fL (81.0-99.0); Mean Platelet Volume 9.2 fL (7.4-10.4); Nucleated Red Blood Cells % 0 %; Platelet Count 290 10^3/uL (130-400); Red Blood Cell Count 4.03 10^6/uL (4.20-5.40); White Blood Cell Count 4.3 10^3/uL (4.8-10.8)
[2024-10-22 08:40] LABS: ALT (SGPT) 22 U/L (0-35); AST (SGOT) 21 U/L (14-36); Albumin 4.4 g/dl (3.5-5.0); Alkaline Phosphatase 42 U/L (38-126); Blood Urea Nitrogen 25 mg/dl (7-17); Calcium 10.1 mg/dl (8.4-10.2); Carbon Dioxide 29 mmol/L (22-30); Chloride 107 mmol/L (98-107); Glucose 119 mg/dl (70-99); LDH 154 U/L (120-246); Potassium 4.5 mmol/L (3.5-5.1); Sodium 143 mmol/L (135-145); Total Bilirubin 0.5 mg/dl (0.2-1.3); Total Protein 6.9 g/dl (6.3-8.2); eGFR > 60.00
== END ==
LOC: REG 07:33
PROVIDERS: ATTENDING PHYSICIAN Internal Medicine Hematology & Oncology; FAMILY PHYSICIAN Family Medicine
DX: C83.34 Diffuse large B-cell lymphoma, lymph nodes of axilla and upper limb (principal); Z86.000 Personal history of in-situ neoplasm of breast; Z90.12 Acquired absence of left breast and nipple; Z85.850 Personal history of malignant neoplasm of thyroid; J01.90 Acute sinusitis, unspecified
CPT/HCPCS: 36415; 80053; 83615; 85025

== ENCOUNTER → 2025-01-13 06:43 | Outpatient (REF) | payer BC, SELFPAY ==
[2025-01-13 08:06] LABS: Hematocrit 36.4 % (37.0-47.0); Hemoglobin 12.0 g/dL (12.0-16.0); Mean Corp Hgb Conc. 33.0 g/dL (33.0-37.0); Mean Corpuscular Volume 91.0 fL (81.0-99.0); Nucleated Red Blood Cells % 0 %; Platelet Count 298 10^3/uL (130-400); Red Cell Dist. Width 12.4 % (11.5-14.5)
[2025-01-13 08:34] LABS: ALT (SGPT) 21 U/L (0-35); AST (SGOT) 21 U/L (14-36); Albumin 4.4 g/dl (3.5-5.0); Alkaline Phosphatase 38 U/L (38-126); Blood Urea Nitrogen 21 mg/dl (7-17); Calcium 9.9 mg/dl (8.4-10.2); Carbon Dioxide 29 mmol/L (22-30); Chloride 105 mmol/L (98-107); Glucose 114 mg/dl (70-99); HDL Cholesterol 56 mg/dl; LDH 159 U/L (120-246); LDL Cholesterol, Calculated 79 mg/dl; Potassium 4.6 mmol/L (3.5-5.1); Sodium 142 mmol/L (135-145); Total Protein 7.0 g/dl (6.3-8.2); Very Low Density Lipoprotein 20 mg/dl (0-30); eGFR > 60.00
[2025-01-13 10:11] LABS: Glycohemoglobin (HgbA1c) 5.7 % (4.0-5.6)
== END ==
LOC: REG 06:43
PROVIDERS: ATTENDING PHYSICIAN Internal Medicine Hematology & Oncology; FAMILY PHYSICIAN Family Medicine
DX: R73.01 Impaired fasting glucose (principal); E78.2 Mixed hyperlipidemia; C85.10 Unspecified B-cell lymphoma, unspecified site; D70.9 Neutropenia, unspecified; C83.34 Diffuse large B-cell lymphoma, lymph nodes of axilla and upper limb; Z86.000 Personal history of in-situ neoplasm of breast; Z90.12 Acquired absence of left breast and nipple; J01.90 Acute sinusitis, unspecified
CPT/HCPCS: 36415; 80053; 80061; 83036; 83615; 85025

== ENCOUNTER → 2025-01-13 08:06 | Outpatient (REF) | payer BC, SELFPAY | LOC: PET 08:06 | PROVIDERS: ATTENDING PHYSICIAN Internal Medicine Hematology & Oncology | DX: C83.34 Diffuse large B-cell lymphoma, lymph nodes of axilla and upper limb (principal) | CPT/HCPCS: 78815; A9552 ==

== ENCOUNTER → 2025-02-03 09:03 | Outpatient (REF) | payer BC, SELFPAY | LOC: RAD 09:03 | PROVIDERS: ATTENDING PHYSICIAN Physician Assistant; FAMILY PHYSICIAN Family Medicine | DX: I65.23 Occlusion and stenosis of bilateral carotid arteries (principal) | CPT/HCPCS: 93880 ==

== ENCOUNTER → 2025-02-11 13:42 | Outpatient (REF) | payer BC, SELFPAY ==
--- NOTE | 2025-02-11 15:06 | CARDSERVLU ---
Echocardiogram with Lumason completed after protocol screening completed. Allergies verified.
Patent IV site: _Rt AC___
IV site flushed with 0.9% NaCl pre and post administration.
Diluted bolus method utilized to enhance visualization of ventricular fowler.
Total volume given: __4.0__ mL
Patient tolerated all procedures well without complications.
#22 mary ellen placed Rt AC. Lumason given. INT dc'dd. Pressure applied. No bleeding noted.
== END ==
LOC: RCS 13:42
PROVIDERS: ATTENDING PHYSICIAN Physician Assistant; FAMILY PHYSICIAN Family Medicine
DX: I31.39 Other pericardial effusion (noninflammatory) (principal); I10 Essential (primary) hypertension
CPT/HCPCS: 93306; Q9950

== ENCOUNTER → 2025-04-15 08:42 | Outpatient (REF) | payer BC, SELFPAY ==
[2025-04-15 10:04] LABS: Hematocrit 35.6 % (37.0-47.0); Hemoglobin 11.7 g/dL (12.0-16.0); Mean Corp Hgb Conc. 32.9 g/dL (33.0-37.0); Mean Corpuscular Volume 89.4 fL (81.0-99.0); Nucleated Red Blood Cells % 0 %; Platelet Count 293 10^3/uL (130-400); Red Cell Dist. Width 13.0 % (11.5-14.5)
[2025-04-15 10:54] LABS: ALT (SGPT) 20 U/L (0-35); AST (SGOT) 22 U/L (14-36); Albumin 4.4 g/dl (3.5-5.0); Alkaline Phosphatase 46 U/L (38-126); Blood Urea Nitrogen 20 mg/dl (7-17); Calcium 9.5 mg/dl (8.4-10.2); Carbon Dioxide 29 mmol/L (22-30); Chloride 104 mmol/L (98-107); Glucose 103 mg/dl (70-99); LDH 168 U/L (120-246); Potassium 4.6 mmol/L (3.5-5.1); Sodium 138 mmol/L (135-145); Total Protein 6.4 g/dl (6.3-8.2); eGFR > 60.00
== END ==
LOC: REG 08:42
PROVIDERS: ATTENDING PHYSICIAN Internal Medicine Hematology & Oncology; FAMILY PHYSICIAN Family Medicine
DX: C83.34 Diffuse large B-cell lymphoma, lymph nodes of axilla and upper limb (principal); Z86.000 Personal history of in-situ neoplasm of breast; Z90.12 Acquired absence of left breast and nipple; Z85.850 Personal history of malignant neoplasm of thyroid; J01.90 Acute sinusitis, unspecified
CPT/HCPCS: 36415; 80053; 83615; 85025

== ENCOUNTER → 2025-04-21 13:01 | Outpatient (REF) | payer BC, SELFPAY ==
[2025-04-21 15:16] LABS: Iron 58 ug/dl (37-170)
[2025-04-21 15:27] LABS: Total Iron Binding Capacity 466 ug/dl (265-497)
[2025-04-21 15:50] LABS: Ferritin 13.4 ng/ml (11.1-264.0)
[2025-04-21 16:22] LABS: Folate 5.5 ng/ml (2.76-20); Vitamin B12 632 pg/ml (239-931)
== END ==
LOC: REG 13:01
PROVIDERS: ATTENDING PHYSICIAN Nurse Practitioner Adult Health; FAMILY PHYSICIAN Family Medicine
DX: C83.34 Diffuse large B-cell lymphoma, lymph nodes of axilla and upper limb (principal); Z86.000 Personal history of in-situ neoplasm of breast; Z90.12 Acquired absence of left breast and nipple; Z85.850 Personal history of malignant neoplasm of thyroid; J01.90 Acute sinusitis, unspecified
CPT/HCPCS: 36415; 82607; 82728; 82746; 83540; 83550